=== PATIENT | male | born 1940 | race Caucasian/White ===

== ENCOUNTER 2018-07-02 00:42 | Inpatient (IN) | payer MEDICARE, BC ==
[2018-07-02 05:07] LABS: Actual Bicarbonate (HCO3a) 32.6 mEq/L (22-28); Analyzer IN Cardio ER; Base Excess (BEa) 3.3 mEq/L (-2.0 to +3.0); CO2 Tension 72.4 mmHg (35.0-45.0); Hemoglobin (Hb) 14.9 g/dL (14.0-18.0); O2 Tension (PaO2) 76.3 mmHg (> 70.0); Potassium - ABG Lab 4.02 mmol/L (3.70-5.30); pH, Arterial 7.27 (7.35-7.45)
[2018-07-02 05:08] LABS: Puncture Site LRA
[2018-07-02] MEDS ORDERED: Dextrose 50% Abboject 50 ML SYRINGE ONE (05:18)
[2018-07-02 05:35] LABS: Hemoglobin 13.8 g/dL (14.0-18.0); Mean Corpuscular HGB CONC 30.5 g/dL (32.0-36.0); RBC Distribution Width 14.7 % (11.5-14.5); Red Blood Cell (RBC) Count 4.91 mill/uL (4.70-6.10); White Blood Cell (WBC) Count 4.8 thou/uL (4.8-10.8)
[2018-07-02 05:36] LABS: INR-International Normal Ratio 1.8; PTT 37.3 SEC (22.9-36.1); Prothrombin Time 20.9 SEC (12.0-14.7)
[2018-07-02 05:49] LABS: #Lymphocytes 1.2 thou/uL (1.20-3.40); #Monocytes 0.5 thou/uL (0.11-0.59); %Eosinophils 0.7 % (0.0-10.0); %Lymphocytes 24.9 % (21.0-51.0); %Monocytes 9.6 % (0.0-10.0); %Neutrophils 63.7 % (42.0-75.0); Mean Platelet Volume 8.6 fL (7.4-10.4); PLT Morphology Comment Appears Decreased; Platelet Count 109 thou/uL (130-400)
[2018-07-02 05:51] LABS: ALT (SGPT) 25 U/L (8-55); AST (SGOT) 44 U/L (5-34); Albumin 3.6 g/dL (3.4-4.8); Alkaline Phosphatase 48 U/L (40-150); Anion Gap 10 mmol/L (10-20); BUN (Urea Nitrogen) 40 mg/dL (8.4-25.7); Bilirubin, Total 0.7 mg/dL (0.2-1.2); Calc. Creatinine Clearance 0 mL/min (70-130); Carbon Dioxide 33 mmol/L (23-31); Chloride 107 mmol/L (98-107); Estimated GFR-MDRD 51; Globulin 2.9 g/dL (2.4-3.5); Magnesium 1.9 mg/dL (1.6-2.6); Potassium 3.9 mmol/L (3.5-5.1); Protein, Total 6.5 g/dL (5.8-8.1); Sodium 146 mmol/L (136-145)
[2018-07-02 05:52] LABS: CKMB 4.8 ng/mL (0-6.6); Troponin I 0.052 ng/mL (< 0.028)
[2018-07-02] MEDS ORDERED: Furosemide 40 MG/4 ML VIAL ONE (05:53)
[2018-07-02] MEDS ORDERED: Piperacillin/Tazobactam 4.5 GM VIAL ONE (05:53)
[2018-07-02 05:55] LABS: Glucose 46 mg/dL (83-110)
[2018-07-02 06:56] LABS: Bilirubin Negative (Negative); Blood, Urine Negative (Negative); Clarity CLEAR (Clear); Glucose, Urine (Dipstick) Negative (Negative); Leukocyte Negative (Negative); Nitrite Negative (Negative); Protein, Urine (Dipstick) Trace mg/dL (Neg-Trace); Specific Gravity, Urine 1.013 (1.002-1.036); pH, Urine 6.5 (5.0-9.0)
--- NOTE | 2018-07-02 07:55 | CT ---
CT OF THE BRAIN WITHOUT CONTRAST: INDICATION: Altered mental status. COMPARISON: None. FINDINGS: There is mild generalized cerebral and cerebellar atrophy. No acute infarct, hemorrhage, or hydrocephalus is present. The septum pellucidum and third ventricle are midline. There is mucosal thickening within the maxillary sinuses and ethmoid air cells with po stsurgical change of a partial ethmoidectomy and antrectomy involving both maxillary sinuses. Mastoi d air cells are clear. IMPRESSION: 1. No acute intracranial abnormality. 2. Moderate paranasal sinus disease. POS: BH
--- NOTE | 2018-07-02 08:14 | RAD ---
RADIOGRAPH CHEST 1 VIEW: Date: 07-02-18 Time: 5:17 a.m. HISTORY: 77-year-old male with dyspnea. FINDINGS: Again noted are the sternotomy wires, and surgical clips overlying the left side of the cardiac shado w. There is cardiomegaly which appears worse on the current study. There is diffuse pulmonary vascula r engorgement, new since the prior study. Interstitial markings are diffusely prominent. No consolida tion or pneumothorax. IMPRESSION: 1. Cardiomegaly and pulmonary venous congestion are evidence for mild congestive heart failure. 2. Status post coronary artery bypass graft surgery is evidence for coronary atherosclerotic disease. ROSANNE [] POS: TABITHA
[2018-07-02] MEDS ORDERED: Ondansetron HCl/PF 4 MG/2 ML Vial IVP PRN (10:20)
[2018-07-02] MEDS ORDERED: Dextrose 5% in Water 1,000 ML IV PRN (10:20)
[2018-07-02] MEDS ORDERED: Senokot 8.6 MG TAB PO PRN (10:20)
[2018-07-02] MEDS ORDERED: Mag-Al 1200 mg/1200 mg/30 ML UDCUP PO PRN (10:20)
[2018-07-02] MEDS ORDERED: Guaifenesin DM 100-10/5 ML UDCUP PO PRN (10:20)
[2018-07-02] MEDS ORDERED: Dextrose 50% Abboject 50 ML SYRINGE SLOW IVP PRN (10:20)
[2018-07-02 10:24] VITALS: BMI 36.3
--- NOTE | 2018-07-02 11:09 | HP ---
REASON FOR ADMISSION: Acute respiratory failure with hypoxia and hypercarbia, acute chronic obstruct lulu pulmonary disease exacerbation, possible obesity hypoventilation, obstructive sleep apnea, conges tive heart failure exacerbation with diastolic dysfunction likely, hypoglycemia, hypothermia, demand ischemia. HISTORY OF PRESENT ILLNESS: Please note the patient does not recall what happened and states that he woke up in the hospital ER. at bedside mentions that around 2:30 in the morning the patient wa s screaming and yelling. He was profusely sweating and was incoherent. He was rolling side to side and was holding his chest. He was totally uncomfortable. This lasted for a few minutes and finally they called EMS and when EMS arrived, his fingerstick glucose was 44. He was given multiple dextrose IV and was brought to the emergency room. The family also mentioned that he was complaining of some head chills on Sunday. He has known history of sleep apnea and does not wear CPAP. No history of fever, he has a dry cough, but no expectoration. No complaints of urinary frequency or urgency. Cu rrently, does not complain of any chest pain, palpitations or PND. He was on BiPAP on arrival and is currently on nasal cannula. His fingerstick glucose has come up to 91 at 7:10 a.m. On arrival here serum glucose was 46. PAST MEDICAL AND SURGICAL HISTORY: History of coronary artery disease, prior CABG for 5-vessel disea se in 1994, history of DVT years ago, chronic atrial fibrillation, osteoarthritis, diabetes mellitus type 2 requiring insulin, history of skin cancer, GERD, dyslipidemia. He has atopic allergy and take s Benadryl on a daily basis. CURRENT MEDICATIONS: The patient is on metformin 500 mg p.o. daily, Lantus 60 units subcu at bedtime , Humalog 20 units before breakfast, 32 before lunch and dinner, Coreg 25 mg twice daily, atorvastati n 40 mg p.o. daily, lisinopril 10 mg daily, furosemide 40 mg once a week, Coumadin 5 mg daily, fenofi brate 48 mg p.o. daily. ALLERGIES: No known drug allergies. PERSONAL HISTORY: Quit smoking years ago, more than 10 years ago, but has smoked for nearly 40 years , one pack a day. Does not abuse alcohol or drugs. Lives with his . FAMILY HISTORY: Mother of dementia and old age at the age of 82 years. Father had massive OK, at the age of 62 years. CODE STATUS: FULL. Power of senior attorney is his . REVIEW OF SYSTEMS: The following complete review of systems was negative, unless otherwise mentioned in the HPI or below: Constitutional: Weight loss or gain, ability to conduct usual activities. Skin: Rash, itching. Eyes: Double vision, pain. ENT/Mouth: Nose bleeding, neck stiffness, pain, tenderness. Cardiovascular: Palpitations, dyspnea on exertion, orthopnea. Respiratory: Shortness of breath, wheezing, cough, hemoptysis, fever or night sweats. Gastrointestinal: Poor appetite, abdominal pain, heartburn, nausea, vomiting, constipation, or diarrhea. Genitourinary: Urgency, frequency, dysuria, nocturia. Musculoskeletal: Pain, swelling. Neurologic/Psychiatric: Anxiety, depression. Allergy/Immunologic: Skin rash, bleeding tendency. PHYSICAL EXAMINATION: GENERAL: The patient is a 77-year-old male who is currently not in any acute distress. VITAL SIGNS: Blood pressure 140/66, pulse 64 per minute, respiratory rate currently 18, on arrival w as 20, saturating 98% on 3 liters nasal cannula at present, was 98% on BiPAP on arrival had a rectal temperature of 95.3 degrees, currently 97 degrees. NECK: Supple, no elevated JVD. HEENT: Eyes; extraocular muscles intact. Pupils reacting to light. Oral cavity mucous membranes ar e dry. No exudates or congestion. CARDIOVASCULAR: S1, S2 heard. Irregular rhythm. RESPIRATORY: Air entry 1+ bilateral. Scattered rales plus bilateral, rhonchi plus bilateral. No ob vious wheezes at present. ABDOMEN: Soft, bowel sounds heard. No tenderness, masses, rigidity or guarding. EXTREMITIES: There is a right lower extremity chronic edema due to vein grafting for CABG. No calf tenderness. VASCULAR: Peripheral pulses 1+ bilateral, no ischemic ulcerations or gangrene. CENTRAL NERVOUS SYSTEM: No gross focal deficits noted. Patient is currently awake and oriented well . Responds well to verbal questions. PSYCHIATRIC: No obvious hallucinations or delusions at present. LABORATORY AND X-RAY FINDINGS: EKG done shows atrial fibrillation at 69 beats per minute. There is incomplete RBBB with frequent PVC seen. White count of 4.8, H&H 13 and 45, platelet count 109. MCV is 92 with 63% neutrophils. PT/INR 20 and 1.8, PTT 37. Blood gas done shows a pH of 7.27, pCO2 72, pO2 76. Serum bicarbonate is 33, BUN 40, creatinine 1.3, serum glucose was 46, recent fingerstick is 91. Magnesium 1.9, AST 44, ALT 25. CK-MB 4.8, troponin I 0.05. BNP is 208, albumin is 3.6. Chest x-ray done shows cardiomegaly with pulmonary vascular congestion. CT brain done shows no acute intracranial abnormality. There is moderate paranasal sinus disease seen especially in the maxillar y sinuses and ethmoid air cells. There is also post-surgical change of partial ethmoidectomy and ant rectomy involving both maxillary sinuses. CLINICAL IMPRESSION AND PLAN: The patient will be admitted to IM for acute respiratory failure wit h hypoxia and hypercarbia, acute chronic obstructive pulmonary disease exacerbation, likely obesity h ypoventilation, obstructive sleep apnea, and noncompliant with CPAP, possible diastolic dysfunction w ith congestive heart failure exacerbation, hypoglycemia. The patient will be given a regular diet as he is fully awake and oriented now. We will place him on DuoNebs q.6 hourly, Lasix 40 mg IV q.12 ho urly for a total of 4 doses. Echo with 2D Doppler for LV function. Empiric Levaquin and IV steroids . We will continue his Coumadin as before along with aspirin, atorvastatin, Coreg at a lower dose an d TriCor. His lisinopril will be split to 5 mg twice daily. We will consult Dr. Haji who is on c all for Pulmonology and Dr. Saravia for Cardiology. Accurate I's and O's will be obtained. PT, OT evaluations will be requested as well. Once his hypothermia has completely resolved, along with hypo glycemia, the patient can be moved off to telemetry.
[2018-07-02] MEDS ORDERED: Aspirin 325 MG TAB PO SCH (11:30)
[2018-07-02] MEDS ORDERED: Furosemide 40 MG/4 ML VIAL SLOW IVP SCH (14:00)
[2018-07-02] MEDS: Carvedilol 6.25 MG TAB PO SCH (17:18)
[2018-07-02] MEDS: Warfarin Sodium 5 MG TAB PO SCH (17:18)
--- NOTE | 2018-07-02 19:32 | CON ---
DATE OF CONSULTATION: 07/02/2018 SERVICE: Pulmonary Medicine. REASON FOR CONSULTATION: Respiratory failure. HISTORY OF PRESENT ILLNESS: The patient is a 77-year-old white male with past medical history significant for greater than [id number] history of smoking and a sick heart. He underwent a coronary bypass graft x5 vessels in 1994. Since then, he has had swelling in the lower extremities, it has been on and off. He also has dyspnea on exertion that plagues him. After he walks about 50 feet, he has significant pain in his back, hips and knees, but the thing that really limits him in addition to the mobility is breathing issues. This has been slowly progressive over a period of several years. This was in his usual state of health until roughly a month ago, he started having increasing lower extremity swelling, and nocturnal symptoms of difficulty sleeping, waking up short of breath. Roughly 3 days ago, however, he started having increasing sputum production, bring up green stuff. He presented to the emergency department because he could not breathe. Ultimately, he was identified as being both volume overloaded and hypercapnic. He was placed on BiPAP temporarily. He absolutely hated using the device. He has a history of obstructive sleep apnea, but after 3 months, he had been in therapy because he could not get used to wearing this thing. He was given a couple of doses of Lasix and overnight, he has had profound improvement in his symptoms. He is talking in full sentences. He has been weaned down to 1 liter nasal cannula and it is questionable as to whether or not he even needs that. PAST MEDICAL HISTORY: 1. Coronary artery disease. 2. Atrial fibrillation, chronic. 3. Chronic diastolic heart failure. 4. Type 2 diabetes mellitus. 5. Hypertension. 6. Dyslipidemia. 7. Osteoarthritis. 8. History of DVT. 9. Gastroesophageal reflux disease. PAST SURGICAL HISTORY: 1. Coronary artery bypass graft x5 vessels in 1994. 2. Excision of skin cancer. ALLERGIES: No known drug allergies. MEDICATIONS: List of his inpatient medications were reviewed. Multiple small updates were made. FAMILY HISTORY: Noncontributory. SOCIAL HISTORY: He has a greater than [id number] history of smoking, but quit over 10 years ago. He does not use any alcohol or illicit drugs. He lives with his . They have been almost 59 years. He has no exposure to chemicals, dust, asbestos or tuberculosis otherwise. REVIEW OF SYSTEMS: General, head, ears, eyes, nose, throat, cardiovascular, respiratory, GI, , musculoskeletal, neurologic and skin is negative except as mentioned in the HPI. PHYSICAL EXAMINATION: VITAL SIGNS: Afebrile, pulse 73, blood pressure 112/78, respirations 24, saturation 99% on 2 liters nasal cannula. GENERAL: The patient is awake, alert, no apparent distress. LUNGS: Good air entry. There is a slightly prolonged expiratory phase, but most likely crackles scattered throughout bilateral lung swan predominating throughout the basilar regions. HEART: Normal rate and regular. ABDOMEN: Soft, nontender, nondistended. Bowel sounds are positive. MUSCULOSKELETAL: No cyanosis or clubbing. There is trace to 1+ pitting in the bilateral lower extremities with findings of chronic stasis. GENITOURINARY: No Nevarez. NEUROLOGIC: Grossly nonfocal. LABORATORY DATA: WBC 4.8, hemoglobin 13.8, platelets 109,000 with a normal differential. INR 1.8. A pH 7.27, pCO2 of 72, pO2 76. He was on room air at that time. Creatinine 1.35, above baseline of 1.2. Liver function studies are unremarkable. BNP 208, troponin 0.052, glucose 122, lactate 1.1. Urinalysis is essentially unremarkable. IMAGIN. CT of the brain demonstrates no acute intracranial abnormality. 2. Chest x-ray demonstrates cardiomegaly despite the fact this is an AP film, hyperexpanded lungs bilaterally with prominent alveolar and interstitial infiltrates characteristic of volume overload. Pulmonary vascular congestion is noted. Previous sternotomy is noted. ASSESSMENT: 1. Acute hypoxic and hypercapnic respiratory failure. 2. Obstructive sleep apnea, severe, previously not able to tolerate CPAP therapy. 3. Extensive history of tobacco abuse, resolved. 4. Chronic obstructive pulmonary disease with acute exacerbation, possible. 5. Acute on chronic systolic and diastolic heart failure, suspected. DISCUSSION AND PLAN: We will continue to diurese the patient euvolemia. I will switch the steroids over to p.o., continue frequent nebulized medications, and limit his antibiotic course to a total duration of 7 days. From my perspective, he is stable for transition to the telemetry unit. Pulmonary will continue to follow for the time being. Ultimately on discharge from the hospital, I would like to get him back in clinic so we can clarify whether or not he has any underlying lung disease in his usual state and talked to him about whether or not he wants to pursue polysomnogram again to treat his known sleep apnea. I had a discussion with him, his daughter, granddaughter, , and very close family friend. They do understand that untreated sleep apnea can contribute to kidney injury, dementia, stroke, heart disease, sudden cardiac , atrial fibrillation. We will continue our discussion int the outpatient setting. 70 minutes have been devoted to this patient in various activities. I personally reviewed all imaging studies and laboratory data noted within this document. For fifty percent of this time, I was interacting with the patient at the bedside or coordinating care with the care team. For the remainder of the time I was immediately available to the patient in the hospital unit. ENE
[2018-07-02] MEDS: Docusate 100 MG CAP PO SCH (19:50)
[2018-07-02] MEDS: Lisinopril 5 MG TAB PO SCH (19:50)
[2018-07-02] MEDS: Atorvastatin Calcium 40 MG TAB PO SCH (19:50)
[2018-07-02] MEDS: guaiFENesin ER 600 MG TAB PO SCH (19:50)
[2018-07-02] MEDS ORDERED: Prevnar 13-Val Conj/PF 0.5 ML SYRINGE IM ONE (21:00)
[2018-07-02] MEDS: Insulin Glargine 60 UNITS in Pre-Filled Syringe 1 EACH SC SCH (22:56)
[2018-07-03] MEDS: Acetaminophen 325 MG TAB PO PRN (00:30)
[2018-07-03 04:25] LABS: #Lymphocytes 1.5 thou/uL (1.20-3.40); #Monocytes 0.8 thou/uL (0.11-0.59); #Neutrophils 5.9 thou/uL (1.40-6.50); %Basophils 0.1 % (0.0-1.0); %Eosinophils 0.2 % (0.0-10.0); %Lymphocytes 18.8 % (21.0-51.0); %Monocytes 9.3 % (0.0-10.0); %Neutrophils 71.7 % (42.0-75.0); Hemoglobin 14.8 g/dL (14.0-18.0); Mean Corpuscular HGB CONC 31.3 g/dL (32.0-36.0); Mean Corpuscular Hemoglobin 28.5 pg (27.0-31.0); Mean Corpuscular Volume 91.1 fL (78.0-98.0); Mean Platelet Volume 8.9 fL (7.4-10.4); Platelet Count 148 thou/uL (130-400); RBC Distribution Width 14.8 % (11.5-14.5); Red Blood Cell (RBC) Count 5.18 mill/uL (4.70-6.10); White Blood Cell (WBC) Count 8.2 thou/uL (4.8-10.8)
[2018-07-03 04:28] LABS: Anion Gap 15 mmol/L (10-20); BUN (Urea Nitrogen) 41 mg/dL (8.4-25.7); Calc. Creatinine Clearance 65 mL/min (70-130); Calcium 9.7 mg/dL (7.8-10.44); Carbon Dioxide 30 mmol/L (23-31); Chloride 97 mmol/L (98-107); Estimated GFR-MDRD 44; Glucose 269 mg/dL (83-110); Potassium 4.1 mmol/L (3.5-5.1); Sodium 138 mmol/L (136-145)
[2018-07-03 05:07] LABS: Prothrombin Time 22.4 SEC (12.0-14.7)
[2018-07-03] MEDS: HumaLOG 300 UNITS/3 ML VIAL SC SCH ×3 (08:27→18:32)
[2018-07-03] MEDS: Lisinopril 5 MG TAB PO SCH ×2 (08:27→19:40)
[2018-07-03] MEDS: predniSONE 20 MG TAB PO SCH (08:28)
[2018-07-03] MEDS: Aspirin 325 MG TAB PO SCH (08:28)
[2018-07-03] MEDS: guaiFENesin ER 600 MG TAB PO SCH ×2 (08:28→19:40)
[2018-07-03] MEDS: Carvedilol 6.25 MG TAB PO SCH ×2 (08:29→18:32)
[2018-07-03] MEDS: Docusate 100 MG CAP PO SCH ×2 (08:29→19:40)
[2018-07-03] MEDS ORDERED: Furosemide 40 MG/4 ML VIAL SLOW IVP SCH (09:00)
--- NOTE | 2018-07-03 11:17 | CON ---
DATE OF CONSULTATION: 07/03/2018 HISTORY OF PRESENT ILLNESS: Patient is a pleasant 77-year-old gentleman with a history of coronary artery disease status post coronary bypass surgery with chronic atrial fibrillation who presents with altered mental status. The patient states he underwent coronary bypass graft surgery in 1996. He had coronary bypass surgery x5 done in [place]. He has been followed by Dr. Rider. He had developed chronic atrial fibrillation and is on chronic anticoagulation therapy. The patient has done remarkably well. He was in his usual state of health, but it has been under a great deal of stress. He has not been eating well. Early in the morning, he developed acute altered mental status. He was brought to the emergency room and found to have severe hypoglycemia. The patient does not recall this incident. The patient denies having any chest discomfort or palpitations. PAST MEDICAL HISTORY: 1. Coronary artery disease. 2. Diabetes mellitus. 3. Hypertension. 4. Dyslipidemia. 5. Atrial fibrillation. 6. Sleep apnea. 7. GE reflux. 8. History of DVT. PAST SURGICAL HISTORY: Coronary bypass graft surgery. MEDICATIONS: Coreg 25 b.i.d., Lipitor 40 at bedtime, lisinopril 10 daily, Lasix 40 daily, metformin 500 daily, Coumadin 5 at bedtime, fenofibrate 48 mg daily. ALLERGIES: No known drug allergies. SOCIAL HISTORY: He is a former smoker. FAMILY HISTORY: Positive family history of heart disease. ALLERGIES: No known drug allergies. REVIEW OF SYSTEMS: Ten point system noticeable for somnolence, difficulty sleeping and for increased stress. Ten-point system otherwise unremarkable. PHYSICAL EXAMINATION: GENERAL: This is an elderly gentleman in no acute distress. VITAL SIGNS: Blood pressure 112/78. NECK: Showed no jugular venous distention. LUNGS: Have a few crackles in both bases. HEART: Regular rate and rhythm, normal S1, S2, 1/6 systolic murmur. ABDOMEN: Distended. EXTREMITIES: Showed mild bilateral edema. SKIN: Warm. NEUROLOGIC: Nonfocal. VASCULAR: Radial pulses 2+. LABORATORY DATA: White blood count 4.8, hemoglobin 13.8, hematocrit 45.2, platelets 109. Sodium is 146, potassium 3.9, chloride 107, bicarbonate 33, BUN 40, creatinine is 1.35. His troponin was 0.052. His BNP was 208. His INR was 1.8. His EKG revealed atrial fibrillation with occasional premature ventricular contractions. IMPRESSION: 1. Altered mental status secondary to hypoglycemia. 2. Congestive heart failure. 3. History of coronary bypass surgery x5. 4. Chronic atrial fibrillation. 5. Diabetes mellitus. 6. Dyslipidemia. 7. History of a deep venous thrombosis. 8. Sleep apnea. 9. Morbid obesity. This gentleman presents with altered mental status secondary to hypoglycemia. He was followed by a supervisor tumblers in [place]. We will try to obtain records. The patient is being diuresed with IV Lasix. We will check the patient's echocardiogram. We will follow this patient with you through his hospitalization. ENE
--- NOTE | 2018-07-03 11:37 | PRG ---
DATE OF SERVICE: 07/03/2018 SERVICE: Pulmonary Medicine. INTERVAL HISTORY: The patient is doing great from a respiratory standpoint. He denies any current chest pain, nausea, vomiting, fevers or chills. He is on room air this morning. He did not use his noninvasive ventilator last night. Otherwise, there has been no interval change to his condition. PHYSICAL EXAMINATION: VITAL SIGNS: Afebrile, pulse 78, blood pressure 152/72, respirations 18, saturation 100% on room air. GENERAL: The patient is awake, alert, no apparent distress. LUNGS: Decent air entry. There is no prolonged expiratory phase, wheezing, rhonchi, or crackles present. HEART: Normal rate, regular. ABDOMEN: Soft, nontender, nondistended. Bowel sounds are positive. MUSCULOSKELETAL: No cyanosis or clubbing. There is 1-2+ pitting in the bilateral lower extremities. GENITOURINARY: No Nevarez. NEUROLOGIC: Grossly nonfocal. LABORATORY DATA: WBC 8.2, hemoglobin 14.8, platelets 148,000. Creatinine 1.53 and gently trending upward, BUN 41. Basic metabolic profile is otherwise unremarkable. Blood sugars remain a little elevated. Urinalysis is negative. Blood cultures x2 remain unremarkable. IMAGING: Echocardiogram demonstrates 30%-40% ejection fraction. That being said, windows were poor which precludes any additional evaluation. ASSESSMENT: 1. Acute hypoxic and hypercapnic respiratory failure. 2. Acute on chronic systolic and diastolic heart failure. 3. Chronic obstructive pulmonary disease with acute exacerbation secondary to volume. 4. Extensive history of tobacco abuse, remote. 5. Obstructive sleep apnea, severe, not able to tolerate CPAP/BiPAP therapy. DISCUSSION AND PLAN: The patient is stable for transition to the telemetry unit. In the outpatient setting, we will evaluate for whether or not the patient has any obstructive lung disease. If it is present, we will optimize some of his medication and/or management. We will also discuss with him whether or not he wants to pursue a repeat polysomnogram in the outpatient setting, understanding that without control of LEON, he is at increased risk of medical diseases moving forward. Pulmonary will continue to follow for now. ENE
--- NOTE | 2018-07-03 12:43 | PDOC.PN ---
- Subjective Encounter Start Date: 07/03/18 Encounter Start Time: 12:00 Subjective: breathing better, sitting and reading a novel -: no chest pain or palp -: is oriented well - Objective Resuscitation Status: Resuscitation Status FULL:Full Resuscitation MAR Reviewed: Yes Vital Signs & Weight: Vital Signs (12 hours) Temp Pulse Resp BP BP Pulse Ox 07/03/18 10:57 97.7 F 78 18 152/72 H 100 07/03/18 08:29 164/65 H 07/03/18 08:27 80 07/03/18 07:38 97.2 F L 80 16 130/93 H 97 07/03/18 06:58 69 16 98 07/03/18 04:28 98.0 F 76 20 140/74 98 07/03/18 03:53 100 07/03/18 00:55 83 18 93 L Weight Weight 251 lb 1.6 oz I&O: 07/02/18 07/03/18 07/04/18 06:59 06:59 06:59 Intake Total 2112 Output Total 2850 Balance -738 Result Diagrams: 07/03/18 03:42 07/03/18 03:42 Additional Labs: Accuchecks 07/03/18 07/03/18 07/02/18 10:39 05:32 20:02 POC Glucose 206 H 206 H 309 H 07/02/18 16:52 POC Glucose 256 H Phys Exam - Physical Examination HEENT: PERRLA, moist MMs Neck: no JVD, supple Respiratory: no wheezing, no rales Cardiovascular: no significant murmur, irregular Gastrointestinal: soft, non-tender, positive bowel sounds Musculoskeletal: pulses present, edema present Neurological: non-focal, moves all 4 limbs Psychiatric: normal affect, A&O x 3 Dx/Plan (1) Acute respiratory failure with hypoxia and hypercapnia Code(s): J96.01 - ACUTE RESPIRATORY FAILURE WITH HYPOXIA; J96.02 - ACUTE RESPIRATORY FAILURE WITH HYPERCAPNIA Status: Ruled-out (2) Hypoglycemia Code(s): E16.2 - HYPOGLYCEMIA, UNSPECIFIED Status: Resolved (3) Chronic obstructive pulmonary disease with acute exacerbation Code(s): J44.1 - CHRONIC OBSTRUCTIVE PULMONARY DISEASE W (ACUTE) EXACERBATION Status: Acute (4) Acute exacerbation of CHF (congestive heart failure) Code(s): I50.9 - HEART FAILURE, UNSPECIFIED Status: Acute Qualifiers: Heart failure type: combined systolic and diastolic Qualified Code(s): I50.43 - Acute on chronic combined systolic (congestive) and diastolic ( congestive) heart failure Comment: ef of 35% (5) Afib Code(s): I48.91 - UNSPECIFIED ATRIAL FIBRILLATION Status: Chronic Qualifiers: Atrial fibrillation type: chronic Qualified Code(s): I48.2 - Chronic atrial fibrillation (6) HTN (hypertension) Code(s): I10 - ESSENTIAL (PRIMARY) HYPERTENSION Status: Chronic Qualifiers: Hypertension type: essential hypertension Qualified Code(s): I10 - Essential (primary) hypertension (7) Obesity (BMI 30-39.9) Code(s): E66.9 - OBESITY, UNSPECIFIED Status: Chronic (8) DM type 2 (diabetes mellitus, type 2) Status: Chronic Qualifiers: Diabetes mellitus shelter insulin use: with lobsterman use Diabetes mellitus complication status: with unspecified complications Qualified Code(s) : E11.8 - Type 2 diabetes mellitus with unspecified complications; 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 Review of Systems - Medications/Allergies Allergies/Adverse Reactions: Allergies Allergy/AdvReac Type Severity Reaction Status Date / Time No Known Allergies Allergy Verified 07/02/18 10:12 Medications: Current Medications Acetaminophen (Tylenol) 650 mg PO Q4H PRN PRN Reason: Headache/Fever or Pain Last Admin: 07/03/18 00:30 Dose: 650 mg Al Hydroxide/Mg Hydroxide (Maalox) 30 ml PO Q6H PRN PRN Reason: Heartburn or Indigestion Albuterol/Ipratropium (Duoneb) 3 ml NEB [id number] RAJWINDER Last Admin: 07/03/18 06:58 Dose: 3 ml Aspirin (Aspirin) 325 mg PO DAILY [facility] Last Admin: 07/03/18 08:28 Dose: 325 mg Atorvastatin Calcium (Lipitor) 40 mg PO HS [facility] Last Admin: 07/02/18 19:50 Dose: 40 mg Carvedilol (Coreg) 6.25 mg PO BID[facility] Last Admin: 07/03/18 08:29 Dose: 6.25 mg Dextrose/Water (Dextrose 50%) 25 gm SLOW IVP PRN PRN PRN Reason: Hypoglycemia Docusate Sodium (Colace) 100 mg PO BID [facility] Last Admin: 07/03/18 08:29 Dose: 100 mg Furosemide (Lasix) 40 mg SLOW IVP DAILY [facility] Last Admin: 07/03/18 08:27 Dose: 40 mg Glucagon (Glucagon) 1 mg IM PRN PRN PRN Reason: Hypoglycemia Guaifenesin (Mucinex) 1,200 mg PO Q12HR [facility] Last Admin: 07/03/18 08:28 Dose: 1,200 mg Dextrose/Water (D5w) 1,000 mls @ 0 mls/hr IV .Q0M PRN PRN Reason: Hypoglycemia Insulin Glargine 60 units/ (Miscellaneous Medication) 0.6 mls @ 0 mls/hr SC 2230 [facility] Last Admin: 07/02/18 22:56 Dose: 0.6 mls Insulin Human Lispro (Humalog) 20 units SC 0700 [facility] Last Admin: 07/03/18 08:27 Dose: 20 unit Insulin Human Lispro (Humalog) 30 units SC 1200 RAJWINDER Insulin Human Lispro (Humalog) 32 units SC 1800 [facility] Levofloxacin (Levaquin) 750 mg PO 0600 [facility] Stop: 07/08/18 06:01 Last Admin: 07/03/18 05:55 Dose: 750 mg Lisinopril (Zestril) 5 mg PO BID [facility] Last Admin: 07/03/18 08:27 Dose: 5 mg Ondansetron HCl (Zofran) 4 mg IVP Q6H PRN PRN Reason: Nausea/Vomiting Prednisone (Prednisone) 40 mg PO QAM-[facility] Last Admin: 07/03/18 08:28 Dose: 40 mg Senna (Senokot) 2 tab PO HSPRN PRN PRN Reason: Constipation Warfarin Sodium (Coumadin) 5 mg PO 1700 [facility] Last Admin: 07/02/18 17:18 Dose: 5 mg
[2018-07-03] MEDS: Warfarin Sodium 5 MG TAB PO SCH (18:31)
[2018-07-03] MEDS: Atorvastatin Calcium 40 MG TAB PO SCH (19:39)
[2018-07-03] MEDS ORDERED: Digoxin 0.5 MG/2 ML AMP SLOW IVP SCH (21:30)
[2018-07-03] MEDS: Insulin Glargine 60 UNITS in Pre-Filled Syringe 1 EACH SC SCH (21:41)
[2018-07-04] MEDS: HumaLOG 300 UNITS/3 ML VIAL SC SCH ×3 (09:02→17:53)
[2018-07-04] MEDS: Docusate 100 MG CAP PO SCH ×2 (09:03→21:15)
[2018-07-04] MEDS: guaiFENesin ER 600 MG TAB PO SCH (09:03)
[2018-07-04] MEDS: Aspirin 325 MG TAB PO SCH (09:03)
[2018-07-04] MEDS: Lisinopril 5 MG TAB PO SCH ×2 (09:03→21:14)
[2018-07-04] MEDS: predniSONE 20 MG TAB PO SCH (09:03)
[2018-07-04] MEDS: Carvedilol 6.25 MG TAB PO SCH ×2 (09:04→17:52)
--- NOTE | 2018-07-04 13:01 | PDOC.PN ---
- Subjective Encounter Start Date: 07/04/18 Encounter Start Time: 09:10 Subjective: no c/o chest pain or palpitations or sob -: is sitting in bed -: had sustained vtac and was asymptomatic overnight - Objective Resuscitation Status: Resuscitation Status FULL:Full Resuscitation MAR Reviewed: Yes Vital Signs & Weight: Vital Signs (12 hours) Temp Pulse Resp BP BP Pulse Ox 07/04/18 09:04 164/65 H 07/04/18 09:03 86 07/04/18 07:31 96.4 F L 86 12 127/62 95 07/04/18 06:49 82 16 95 07/04/18 04:00 96.8 F L 85 18 127/93 H 96 Weight Weight 236 lb 9.6 oz I&O: 07/03/18 07/04/18 07/05/18 06:59 06:59 06:59 Intake Total 2112 1330 Output Total 2850 2850 Balance -098 -2070 Result Diagrams: 07/03/18 03:42 07/03/18 03:42 Additional Labs: Accuchecks 07/04/18 07/03/18 07/03/18 05:35 20:35 16:41 POC Glucose 124 H 159 H 167 H Phys Exam - Physical Examination HEENT: PERRLA, moist MMs Neck: no JVD, supple Respiratory: no wheezing, no rales Cardiovascular: RRR, no significant murmur Gastrointestinal: soft, non-tender, positive bowel sounds Musculoskeletal: no edema, pulses present Neurological: non-focal, moves all 4 limbs Psychiatric: normal affect, A&O x 3 Dx/Plan (1) V-tach Code(s): I47.2 - VENTRICULAR TACHYCARDIA Status: Acute (2) Acute respiratory failure with hypoxia and hypercapnia Code(s): J96.01 - ACUTE RESPIRATORY FAILURE WITH HYPOXIA; J96.02 - ACUTE RESPIRATORY FAILURE WITH HYPERCAPNIA Status: Resolved (3) Hypoglycemia Code(s): E16.2 - HYPOGLYCEMIA, UNSPECIFIED Status: Resolved (4) Chronic obstructive pulmonary disease with acute exacerbation Code(s): J44.1 - CHRONIC OBSTRUCTIVE PULMONARY DISEASE W (ACUTE) EXACERBATION Status: Acute (5) Acute exacerbation of CHF (congestive heart failure) Code(s): I50.9 - HEART FAILURE, UNSPECIFIED Status: Acute Qualifiers: Heart failure type: combined systolic and diastolic Qualified Code(s): I50.43 - Acute on chronic combined systolic (congestive) and diastolic ( congestive) heart failure Comment: ef of 35% (6) Afib Code(s): I48.91 - UNSPECIFIED ATRIAL FIBRILLATION Status: Chronic Qualifiers: Atrial fibrillation type: chronic Qualified Code(s): I48.2 - Chronic atrial fibrillation (7) HTN (hypertension) Code(s): I10 - ESSENTIAL (PRIMARY) HYPERTENSION Status: Chronic Qualifiers: Hypertension type: essential hypertension Qualified Code(s): I10 - Essential (primary) hypertension (8) Obesity (BMI 30-39.9) Code(s): E66.9 - OBESITY, UNSPECIFIED Status: Chronic (9) DM type 2 (diabetes mellitus, type 2) Status: Chronic Qualifiers: Diabetes mellitus senior living insulin use: with ferry terminal agent use Diabetes mellitus complication status: with unspecified complications Qualified Code(s) : E11.8 - Type 2 diabetes mellitus with unspecified complications; Z79.4 - retirement (current) use of insulin (10) LEON (obstructive sleep apnea) Code(s): G47.33 - OBSTRUCTIVE SLEEP APNEA (ADULT) (PEDIATRIC) Status: Chronic Comment: noncompliant with cpap - Plan had sustained vtac overnight, was asymptomatic -: has 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 dm is stable on current insulins. Review of Systems - Medications/Allergies Allergies/Adverse Reactions: Allergies Allergy/AdvReac Type Severity Reaction Status Date / Time No Known Allergies Allergy Verified 07/02/18 10:12 Medications: Current Medications Acetaminophen (Tylenol) 650 mg PO Q4H PRN PRN Reason: Headache/Fever or Pain Last Admin: 07/03/18 00:30 Dose: 650 mg Al Hydroxide/Mg Hydroxide (Maalox) 30 ml PO Q6H PRN PRN Reason: Heartburn or Indigestion Aspirin (Aspirin) 325 mg PO DAILY [facility] Last Admin: 07/04/18 09:03 Dose: 325 mg Atorvastatin Calcium (Lipitor) 40 mg PO HS [facility] Last Admin: 07/03/18 19:39 Dose: 40 mg Carvedilol (Coreg) 12.5 mg PO BID-[facility] Dextrose/Water (Dextrose 50%) 25 gm SLOW IVP PRN PRN PRN Reason: Hypoglycemia Docusate Sodium (Colace) 100 mg PO BID [facility] Last Admin: 07/04/18 09:03 Dose: 100 mg Glucagon (Glucagon) 1 mg IM PRN PRN PRN Reason: Hypoglycemia Guaifenesin (Mucinex) 1,200 mg PO Q12HR [facility] Last Admin: 07/04/18 09:03 Dose: 1,200 mg Dextrose/Water (D5w) 1,000 mls @ 0 mls/hr IV .Q0M PRN PRN Reason: Hypoglycemia Insulin Glargine 60 units/ (Miscellaneous Medication) 0.6 mls @ 0 mls/hr SC 2230 [facility] Last Admin: 07/03/18 21:41 Dose: 0.6 mls Insulin Human Lispro (Humalog) 20 units SC 0700 [facility] Last Admin: 07/04/18 09:02 Dose: 20 unit Insulin Human Lispro (Humalog) 30 units SC 1200 [facility] Last Admin: 07/04/18 12:33 Dose: 30 unit Insulin Human Lispro (Humalog) 32 units SC 1800 [facility] Last Admin: 07/03/18 18:32 Dose: 32 unit Levofloxacin (Levaquin) 750 mg PO 0600 [facility] Stop: 07/08/18 06:01 Last Admin: 07/04/18 06:17 Dose: 750 mg Lisinopril (Zestril) 5 mg PO BID [facility] Last Admin: 07/04/18 09:03 Dose: 5 mg Ondansetron HCl (Zofran) 4 mg IVP Q6H PRN PRN Reason: Nausea/Vomiting Prednisone (Prednisone) 40 mg PO QAM-[facility] Last Admin: 07/04/18 09:03 Dose: 40 mg Senna (Senokot) 2 tab PO HSPRN PRN PRN Reason: Constipation
[2018-07-04] MEDS: Levalbuterol HCl 0.63 MG/3 ML NEB NEB SCH ×2 (14:24→22:48)
--- NOTE | 2018-07-04 16:47 | PRG ---
DATE OF SERVICE: 07/04/2018 SERVICE: Pulmonary Medicine. INTERVAL HISTORY: The patient was doing great this morning from a respiratory standpoint when he bruna t into sustained ventricular tachycardia. This was about 8 minutes' worth. He was completely asympt omatic to the entire episode. Otherwise, there has been no interval change to his condition. He den ies any current chest pain, nausea, vomiting, fevers, chills or shortness of breath. If anything, he feels like he has made steady improvement day by day. He was hoping to go home today. We told him that he is going to wait and have a conversation with EP. There is a possibility this could be a tac hy supraventricular arrhythmia with aberrancy. OBJECTIVE: VITAL SIGNS: Afebrile, pulse 87, blood pressure 164/65, respirations 16, saturation 92% on room air. GENERAL: The patient is awake and alert, no apparent distress. LUNGS: Excellent air entry. There is no prolonged expiratory phase or wheezing today. There are no crackles present. HEART: Normal rate, regular. ABDOMEN: Soft, nontender, nondistended. Bowel sounds are positive. MUSCULOSKELETAL: No cyanosis or clubbing. There is no pitting in the bilateral lower extremities. NEUROLOGIC: Grossly nonfocal. LABORATORY DATA: WBC 8.2, hemoglobin 14.8, platelets 148,000. Blood cultures x2 are unremarkable. IMAGING: Echocardiogram demonstrates 30%-40% ejection fraction with poor windows. Mild mitral regur gitation is present. ASSESSMENT: 1. Acute hypoxic and hypercapnic respiratory failure. 2. Acute on chronic systolic and diastolic heart failure. 3. Chronic obstructive pulmonary disease with acute exacerbation secondary to volume overload. 4. Extensive history of tobacco abuse, remote. 5. Obstructive sleep apnea, severe, previously not able to tolerate CPAP therapy. DISCUSSION AND PLAN: The patient can be moved to the telemetry unit. We will repeat laboratories in [facility] tomorrow morning. At this point, the patient has no further requirements for inpat ient Pulmonary or Critical Care opinion and I will sign off. Please call with additional questions o r concerns moving forward. We have him follow up with me in the outpatient setting to look for obstr uctive sleep apnea once again and evaluate for obstructive lung disease.
--- NOTE | 2018-07-04 17:13 | CON ---
ELECTROPHYSIOLOGY CONSULTATION DATE OF CONSULTATION: 07/04/2018 REFERRING PHYSICIAN: Antony Saarvia. REASON FOR CONSULTATION: Ventricular tachycardia. HISTORY OF PRESENT ILLNESS: Mr. Waterman is a pleasant 77-year-old gentleman who has a substantial pas t medical history. Of note, he has extensive coronary artery disease and has had a 5-vessel bypass s urgery in 1996. He also carries a diagnosis of chronic atrial fibrillation that is currently rate co ntrolled. He is on warfarin for anticoagulation. He has been managed by carpentry teacher in [place], Dr. Gustabo marmolejo. He reports that he is scheduled to see his carpentry teacher for his annual appointment in the next few weeks, but in the past he has been told he has been doing well and has never been told that he h as a weak heart. Other than atrial fibrillation, he has never been told that he has abnormal rhythms . Mr. Waterman was brought in via EMS to [facility] on 07/02/2018. Around 2:30 in the morning, his found him writhing in bed with acute altered mental status. Writhing and making in coherent somewhat guttural sounds. EMS arrived and found that he had severe hyperglycemia with blood sugar of 44 and he was given IV dextrose. He was initially admitted to [facility] for acute respiratory f ailure and congestive heart failure exacerbation and has been diuresed since then. He has been trans ferred to telemetry. Today, he is resting comfortably in the chair. He reports that he is in no mali arent distress. He denies any heart racing, palpitations, chest pain, pressure, syncope, near syncop e, stroke or stroke like symptoms. The night before, there is some excitement and he had a 12-lead E KG done when he was told that his heart was racing, but he did not have any symptoms associated with this tachycardia. He did not experience any dizziness. There is no passing out. He did not have an y chest pain. Congestive heart failure is a new diagnosis for him, although his family members who a re at bedside during exam report that he has a chronic issue of lower extremity edema for which he is supposed to take Lasix daily, but usually takes that once a week. There is some medical noncomplian ce here. REVIEW OF SYSTEMS: A 12-point review of systems was conducted and is negative except that listed abo ve in the HPI. PAST MEDICAL HISTORY: 1. Coronary artery disease with prior 5-vessel bypass grafting in 1996. 2. Chronic atrial fibrillation, rate controlled. 3. Type 2 diabetes. 4. Hypertension. 5. Dyslipidemia. 6. Obstructive sleep apnea, noncompliant with CPAP treatment. 7. Gastroesophageal reflux disease. 8. History of DVT. 9. Chronic anticoagulation with warfarin for chronic atrial fibrillation. ALLERGIES: No known drug allergies. HOME MEDICATIONS: Include Humalog t.i.d. with meals as directed, carvedilol 25 mg p.o. b.i.d., atorv astatin 40 mg p.o. daily, furosemide 40 mg as scheduled daily that is only taking once a week, fenofi brate 48 mg daily, metformin 500 mg daily, warfarin 5 mg as directed, lisinopril 10 mg daily, and Kurt tus 60 units at bedtime. SOCIAL HISTORY: and resides with his family. Former smoker, but quit greater than 10 years back, greater at least a 23-eajo-serl history. Negative for alcohol or drug abuse. FAMILY HISTORY: Mother passed from dementia at the age of 82. Father had a massive MS and passed aw ay at the age of 62. Code status is FULL and his medical power of criminal attorney is his . PHYSICAL EXAMINATION: VITAL SIGNS: Most recent vital signs include 96.4 degrees Fahrenheit, pulse 86, blood pressure 164/6 5, respirations are 16, oxygen is 92% on room air. GENERAL: The patient is a well-groomed overweight gentleman. He is resting comfortably, s itting in a chair. He is in no apparent distress. He is alert and oriented. His speech is clear. His affect is appropriate. HEENT: He is normocephalic, atraumatic. His sclerae are anicteric. EOMs are intact. His oral muco sa is moist and pink with adequate dentition. NECK: Supple with mild jugular venous distention. LUNGS: Clear to auscultation bilaterally without wheezes, crackles or rhonchi. Respirations are grecia n and unlabored. HEART: Rate is irregularly irregular with a controlled rate. PMI is nondisplaced. ABDOMEN: Obese, soft, and nontender without palpable masses. Hepatojugular reflux is mildly positiv e. EXTREMITIES: Warm and dry to touch without clubbing or cyanosis, but due to the extensive pitting ed guillermina bilaterally, greater on the right than the left. NEUROLOGIC: Grossly intact and nonfocal and his gait was not assessed. LABORATORY DATA: 1. Recent laboratory; hematology from yesterday was reviewed and is unremarkable. INR 1.8 on 2017 and 2.0 on 07/03/2018. 2. Chemistry on 07/03/2018, potassium 4.1, creatinine 1.53. BNP was slightly elevated at 208. 3. Echocardiogram on 07/02/2018 reveals an ejection fraction estimated at 30%-40% with a mildly dila billie left atrium, moderate mitral regurgitation, and mild aortic regurgitation. 4. Telemetry and EKGs were all personally reviewed. The patient has chronic atrial fibrillation rajan t is rate controlled. On 07/03/2018 at approximately 20:30, patient had an 8-minute episode of susta ined ventricular tachycardia and that also exhibited occasional fusion beats monomorphic. IMPRESSION: 1. 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 2. Congestive heart failure with likely newly found systolic heart failure, ischemic cardiomyopathy, ejection fraction estimated at 30%-40%. 3. Myocardial infarction in 1996 with a subsequent 5-vessel bypass. 4. Chronic atrial fibrillation on anticoagulation with warfarin and recently slightly subtherapeutic INR. 5. Transient altered mental status, possibly secondary to hypoglycemia. 6. Type 2 diabetes, insulin-dependent. PLAN/RECOMMENDATIONS: 1. With a newly found systolic heart failure and also presenting with sustained ventricular arrhythm ia, should recommend an ischemia workup with possible left heart catheterization. 2. Anticipate patient would likely benefit from ICD placement with sustained ventricular arrhythmia unless some obvious coronary artery disease is found during his ischemia workup. 3. Recommend holding warfarin and consider giving vitamin K to expedite left heart catheterization a nd possible device placement. 4. Records have been requested from his Cardiology office in [place], but currently unavailable. This will be reviewed . Thank you for allowing us to participate in the care of this patient. This is GABY Lynne, dictating an electrophysiology consultation as scribe for Lex Carter M.D.
[2018-07-04] MEDS: Cefdinir 300 MG CAP PO SCH (21:13)
[2018-07-04] MEDS: Amiodarone 200 MG TAB PO SCH (21:13)
[2018-07-04] MEDS: Atorvastatin Calcium 40 MG TAB PO SCH (21:14)
[2018-07-04] MEDS: Insulin Glargine 60 UNITS in Pre-Filled Syringe 1 EACH SC SCH (21:14)
[2018-07-05 05:35] LABS: #Eosinphils 0.1 thou/uL (0.0-0.7); #Lymphocytes 2.5 thou/uL (1.20-3.40); #Monocytes 0.8 thou/uL (0.11-0.59); %Basophils 0.1 % (0.0-1.0); %Eosinophils 0.7 % (0.0-10.0); %Lymphocytes 26.7 % (21.0-51.0); %Monocytes 8.4 % (0.0-10.0); %Neutrophils 64.1 % (42.0-75.0); Hemoglobin 15.8 g/dL (14.0-18.0); Mean Corpuscular HGB CONC 30.9 g/dL (32.0-36.0); Mean Corpuscular Hemoglobin 28.1 pg (27.0-31.0); Mean Corpuscular Volume 90.8 fL (78.0-98.0); Mean Platelet Volume 9.2 fL (7.4-10.4); Platelet Count 141 thou/uL (130-400); RBC Distribution Width 14.8 % (11.5-14.5); Red Blood Cell (RBC) Count 5.61 mill/uL (4.70-6.10); White Blood Cell (WBC) Count 9.4 thou/uL (4.8-10.8)
[2018-07-05 05:39] LABS: INR-International Normal Ratio 1.7; PTT 33.8 SEC (22.9-36.1)
[2018-07-05 05:47] LABS: Anion Gap 12 mmol/L (10-20); BUN (Urea Nitrogen) 49 mg/dL (8.4-25.7); Calc. Creatinine Clearance 66 mL/min (70-130); Calcium 9.6 mg/dL (7.8-10.44); Carbon Dioxide 29 mmol/L (23-31); Chloride 103 mmol/L (98-107); Estimated GFR-MDRD 51; Glucose 95 mg/dL (83-110); Magnesium 2.1 mg/dL (1.6-2.6); Potassium 4.2 mmol/L (3.5-5.1); Sodium 140 mmol/L (136-145)
[2018-07-05] MEDS: HumaLOG 300 UNITS/3 ML VIAL SC SCH ×3 (05:56→18:41)
[2018-07-05] MEDS: Levalbuterol HCl 0.63 MG/3 ML NEB NEB SCH ×3 (06:30→23:30)
--- NOTE | 2018-07-05 12:05 | PDOC.PN ---
- Subjective Encounter Start Date: 07/05/18 Encounter Start Time: 10:30 Subjective: no chest pain or sob, feels better - Objective Resuscitation Status: Resuscitation Status FULL:Full Resuscitation MAR Reviewed: Yes Vital Signs & Weight: Vital Signs (12 hours) Temp Pulse Resp BP Pulse Ox 07/05/18 06:30 89 16 92 L 07/05/18 04:00 97.5 F L 57 L 18 139/63 97 Weight Weight 236 lb 9.6 oz I&O: 07/04/18 07/05/18 07/06/18 06:59 06:59 06:59 Intake Total 1330 240 Output Total 2850 900 Balance -1520 -660 Result Diagrams: 07/05/18 04:56 07/05/18 04:56 Additional Labs: Accuchecks 07/05/18 07/04/18 07/04/18 05:53 20:49 17:57 POC Glucose 97 94 90 Phys Exam - Physical Examination HEENT: PERRLA, moist MMs Neck: no JVD, supple Respiratory: no wheezing, no rales Cardiovascular: RRR, no significant murmur Gastrointestinal: soft, non-tender, positive bowel sounds Musculoskeletal: no edema, pulses present Neurological: non-focal, moves all 4 limbs Psychiatric: normal affect, A&O x 3 Dx/Plan (1) V-tach Code(s): I47.2 - VENTRICULAR TACHYCARDIA Status: Acute (2) Acute respiratory failure with hypoxia and hypercapnia Code(s): J96.01 - ACUTE RESPIRATORY FAILURE WITH HYPOXIA; J96.02 - ACUTE RESPIRATORY FAILURE WITH HYPERCAPNIA Status: Resolved (3) Hypoglycemia Code(s): E16.2 - HYPOGLYCEMIA, UNSPECIFIED Status: Resolved (4) Chronic obstructive pulmonary disease with acute exacerbation Code(s): J44.1 - CHRONIC OBSTRUCTIVE PULMONARY DISEASE W (ACUTE) EXACERBATION Status: Acute (5) Acute exacerbation of CHF (congestive heart failure) Code(s): I50.9 - HEART FAILURE, UNSPECIFIED Status: Acute Qualifiers: Heart failure type: combined systolic and diastolic Qualified Code(s): I50.43 - Acute on chronic combined systolic (congestive) and diastolic ( congestive) heart failure Comment: ef of 35% (6) Afib Code(s): I48.91 - UNSPECIFIED ATRIAL FIBRILLATION Status: Chronic Qualifiers: Atrial fibrillation type: chronic Qualified Code(s): I48.2 - Chronic atrial fibrillation (7) HTN (hypertension) Code(s): I10 - ESSENTIAL (PRIMARY) HYPERTENSION Status: Chronic Qualifiers: Hypertension type: essential hypertension Qualified Code(s): I10 - Essential (primary) hypertension (8) Obesity (BMI 30-39.9) Code(s): E66.9 - OBESITY, UNSPECIFIED Status: Chronic (9) DM type 2 (diabetes mellitus, type 2) Status: Chronic Qualifiers: Diabetes mellitus chcf insulin use: with chcf use Diabetes mellitus complication status: with unspecified complications Qualified Code(s) : E11.8 - Type 2 diabetes mellitus with unspecified complications; Z79.4 - ferry terminal supervisor (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 Review of Systems - Medications/Allergies Allergies/Adverse Reactions: Allergies Allergy/AdvReac Type Severity Reaction Status Date / Time No Known Allergies Allergy Verified 07/02/18 10:12 Medications: Current Medications Acetaminophen (Tylenol) 650 mg PO Q4H PRN PRN Reason: Headache/Fever or Pain Last Admin: 07/03/18 00:30 Dose: 650 mg Al Hydroxide/Mg Hydroxide (Maalox) 30 ml PO Q6H PRN PRN Reason: Heartburn or Indigestion Amiodarone HCl (Cordarone) 400 mg PO TID [facility] Last Admin: 07/04/18 21:13 Dose: 400 mg Aspirin (Aspirin) 325 mg PO DAILY [facility] Last Admin: 07/04/18 09:03 Dose: 325 mg Atorvastatin Calcium (Lipitor) 40 mg PO HS [facility] Last Admin: 07/04/18 21:14 Dose: 40 mg Carvedilol (Coreg) 12.5 mg PO BID-[facility] Last Admin: 07/04/18 17:52 Dose: 12.5 mg Cefdinir (Omnicef) 300 mg PO BID [facility] Last Admin: 07/04/18 21:13 Dose: 300 mg Dextrose/Water (Dextrose 50%) 25 gm SLOW IVP PRN PRN PRN Reason: Hypoglycemia Docusate Sodium (Colace) 100 mg PO BID [facility] Last Admin: 07/04/18 21:15 Dose: 100 mg Furosemide (Lasix) 40 mg PO DAILY-AC [facility] Glucagon (Glucagon) 1 mg IM PRN PRN PRN Reason: Hypoglycemia Dextrose/Water (D5w) 1,000 mls @ 0 mls/hr IV .Q0M PRN PRN Reason: Hypoglycemia Insulin Glargine 60 units/ (Miscellaneous Medication) 0.6 mls @ 0 mls/hr SC 2230 [facility] Last Admin: 07/04/18 21:14 Dose: 0.6 mls Insulin Human Lispro (Humalog) 20 units SC 0700 [facility] Last Admin: 07/05/18 05:56 Dose: Not Given Insulin Human Lispro (Humalog) 30 units SC 1200 [facility] Last Admin: 07/04/18 12:33 Dose: 30 unit Insulin Human Lispro (Humalog) 32 units SC 1800 [facility] Last Admin: 07/04/18 17:53 Dose: 32 unit Levalbuterol HCl (Xopenex) 0.63 mg NEB F2XL-TA [facility] Last Admin: 07/05/18 06:30 Dose: 0.63 mg Lisinopril (Zestril) 5 mg PO BID [facility] Last Admin: 07/04/18 21:14 Dose: 5 mg Ondansetron HCl (Zofran) 4 mg IVP Q6H PRN PRN Reason: Nausea/Vomiting Senna (Senokot) 2 tab PO HSPRN PRN PRN Reason: Constipation
--- NOTE | 2018-07-05 13:12 | PDOC.CTH ---
Cardiology Progress Note - Subjective EP Progress Note: Seen and evaluated. Had stress test today. Remains NPO. Feeling well overall and without complaints. Denies heart racing, palpitations, chest pain/pressure, dizziness, passing out. - Objective Vital Signs Temp Pulse Resp BP BP Pulse Ox 07/05/18 08:05 98.2 F 61 16 156/67 H 100 07/05/18 06:30 89 16 92 L 07/05/18 04:00 97.5 F L 57 L 18 139/63 97 Weight 236 lb 9.6 oz 07/04/18 07/05/18 07/06/18 06:59 06:59 06:59 Intake Total 1330 240 Output Total 2850 900 Balance -1520 -660 - Physical Examination General/Neuro: alert & oriented x3, NAD Neck: carotid US brisk, no JVD present Lungs: CTA, unlabored respirations Heart: RRR Abdomen: NT/ND, soft Extremities: + edema B (3+ L>R) - Telemetry Telemetry Rhythm: SR - Labs Result Diagrams: 07/05/18 04:56 07/05/18 04:56 Troponin/CKMB CK-MB (CK-2) 4.8 ng/mL (0-6.6) 07/02/18 05:11 Troponin I 0.052 ng/mL (< 0.028) H 07/02/18 05:11 - Assessment/Plan 1. Monomorphic ventricular tachycardia, sustained and self terminating- 8 minute episode on 07/03 at 2030. No recurrence since then. Started on amiodarone for suppression 2. Congestive heart failure 3. Systolic heart failure, EF 30-40% newly diagnosed. 4. CAD with prior CABG, normal CURATORIAL SPECIALIST today 5. Chronic atrial fibrillation, asymptomatic, rate controlled 6. Chronic oral anticoagulation with warfarin, subtherapeutic INR, OAC on hold for potential procedures. 7. Type 2 diabetes mellitus, insulin dependent, severe hypoglycemia on admission Keep NPOMonday for potential ICD implant, pending [facility] results. Janae needs life vest if re-vascularized. Continue amiodarone loading.
[2018-07-05] MEDS: Cefdinir 300 MG CAP PO SCH ×2 (13:28→21:28)
[2018-07-05] MEDS: Acetaminophen 325 MG TAB PO PRN (13:28)
[2018-07-05] MEDS: Amiodarone 200 MG TAB PO SCH ×3 (13:29→21:29)
[2018-07-05] MEDS: Aspirin 325 MG TAB PO SCH (13:29)
[2018-07-05] MEDS: Carvedilol 6.25 MG TAB PO SCH ×2 (13:30→16:33)
[2018-07-05] MEDS: Docusate 100 MG CAP PO SCH ×2 (13:31→21:28)
[2018-07-05] MEDS: Lisinopril 5 MG TAB PO SCH ×2 (13:31→21:28)
--- NOTE | 2018-07-05 13:52 | NM ---
CARDIAC SPECT: CLINICAL HISTORY: 78-year-old male with coronary artery disease, CABG, atrial fibrillation, diabetes, and dyslipidemia. TECHNIQUE: A myocardial perfusion scan was performed using the single isotope one day protocol with technetium-9 9m sestamibi. 10 mCi were injected intravenously for the rest exam followed by 33 mCi for the stress exam. Pharmacologic stress with Lexiscan was monitored and interpreted by Dr. Saravia. FINDINGS: No fixed or reversible defects are seen. GATED SPECT LVEF: 35%. WALL MOTION EXAM: Global hypokinesis. IMPRESSION: No evidence of reversible ischemia. POS: TABITHA
[2018-07-05] MEDS ORDERED: Regadenoson 0.4 MG/5 ML SYRINGE ONE (15:57)
[2018-07-05] MEDS: Furosemide 40 MG TAB PO SCH (18:54)
[2018-07-05] MEDS: Atorvastatin Calcium 40 MG TAB PO SCH (21:29)
[2018-07-05] MEDS: Enoxaparin Sodium 120 MG/0.8 ML SYRINGE SC SCH (21:29)
[2018-07-05] MEDS: Insulin Glargine 60 UNITS in Pre-Filled Syringe 1 EACH SC SCH (21:30)
[2018-07-06] MEDS ORDERED: Lidocaine 1% (PF) 30 ML VIAL ONE (06:59)
[2018-07-06 08:26] LABS: #Basophils 0.1 thou/uL (0.0-0.2); #Eosinphils 0.2 thou/uL (0.0-0.7); #Lymphocytes 2.2 thou/uL (1.20-3.40); #Monocytes 0.8 thou/uL (0.11-0.59); %Basophils 0.7 % (0.0-1.0); %Eosinophils 2.9 % (0.0-10.0); %Lymphocytes 30.7 % (21.0-51.0); %Neutrophils 54.7 % (42.0-75.0); Hemoglobin 16.3 g/dL (14.0-18.0); Mean Corpuscular HGB CONC 31.3 g/dL (32.0-36.0); Mean Corpuscular Hemoglobin 28.5 pg (27.0-31.0); Mean Platelet Volume 8.9 fL (7.4-10.4); Platelet Count 144 thou/uL (130-400); RBC Distribution Width 14.8 % (11.5-14.5); Red Blood Cell (RBC) Count 5.73 mill/uL (4.70-6.10); White Blood Cell (WBC) Count 7.3 thou/uL (4.8-10.8)
[2018-07-06] MEDS: Enoxaparin Sodium 120 MG/0.8 ML SYRINGE SC SCH (08:47)
[2018-07-06] MEDS: Furosemide 40 MG TAB PO SCH (08:48)
[2018-07-06] MEDS: Cefdinir 300 MG CAP PO SCH ×2 (08:48→21:01)
[2018-07-06] MEDS: Docusate 100 MG CAP PO SCH ×2 (08:48→21:01)
[2018-07-06] MEDS: Aspirin 325 MG TAB PO SCH (08:48)
[2018-07-06] MEDS: Amiodarone 200 MG TAB PO SCH ×3 (08:49→21:01)
[2018-07-06] MEDS: Lisinopril 5 MG TAB PO SCH (08:49)
[2018-07-06] MEDS: Carvedilol 6.25 MG TAB PO SCH ×2 (08:49→18:20)
[2018-07-06] MEDS: HumaLOG 300 UNITS/3 ML VIAL SC SCH ×3 (08:51→19:27)
[2018-07-06 08:55] LABS: Anion Gap 13 mmol/L (10-20); BUN (Urea Nitrogen) 60 mg/dL (8.4-25.7); Calc. Creatinine Clearance 59 mL/min (70-130); Calcium 9.9 mg/dL (7.8-10.44); Carbon Dioxide 30 mmol/L (23-31); Chloride 104 mmol/L (98-107); Estimated GFR-MDRD 41; Glucose 96 mg/dL (83-110); Potassium 4.2 mmol/L (3.5-5.1); Sodium 143 mmol/L (136-145)
[2018-07-06] MEDS ORDERED: Lisinopril 5 MG TAB PO SCH (09:00)
[2018-07-06] MEDS: Levalbuterol HCl 0.63 MG/3 ML NEB NEB SCH ×3 (09:48→22:57)
--- NOTE | 2018-07-06 13:43 | PDOC.PN ---
- Subjective Encounter Start Date: 07/06/18 Encounter Start Time: 12:00 Subjective: no sob or palpitations -: feels better, is sitting in chair - Objective Resuscitation Status: Resuscitation Status FULL:Full Resuscitation MAR Reviewed: Yes Vital Signs & Weight: Vital Signs (12 hours) Temp Pulse Resp BP BP BP Pulse Ox 07/06/18 12:17 67 140/63 07/06/18 11:32 66 18 129/61 07/06/18 08:49 67 140/63 07/06/18 08:02 97.5 F L 67 16 140/63 07/06/18 04:14 97.7 F 69 18 156/72 H 85 L 07/06/18 04:00 94 L Weight Weight 252 lb I&O: 07/05/18 07/06/18 07/07/18 06:59 06:59 06:59 Intake Total 240 150 Output Total 900 Balance -660 150 Result Diagrams: 07/06/18 08:08 07/06/18 08:08 Additional Labs: Accuchecks 07/06/18 07/06/18 07/05/18 11:05 05:40 21:13 POC Glucose 97 85 150 H 07/05/18 17:20 POC Glucose 138 H Phys Exam - Physical Examination HEENT: PERRLA, moist MMs Neck: no JVD, supple Respiratory: no wheezing, no rales Cardiovascular: RRR, no significant murmur Gastrointestinal: soft, non-tender, positive bowel sounds Musculoskeletal: pulses present, edema present Neurological: non-focal, moves all 4 limbs Psychiatric: normal affect, A&O x 3 Dx/Plan (1) V-tach Code(s): I47.2 - VENTRICULAR TACHYCARDIA Status: Acute (2) Acute respiratory failure with hypoxia and hypercapnia Code(s): J96.01 - ACUTE RESPIRATORY FAILURE WITH HYPOXIA; J96.02 - ACUTE RESPIRATORY FAILURE WITH HYPERCAPNIA Status: Resolved (3) Hypoglycemia Code(s): E16.2 - HYPOGLYCEMIA, UNSPECIFIED Status: Resolved (4) Chronic obstructive pulmonary disease with acute exacerbation Code(s): J44.1 - CHRONIC OBSTRUCTIVE PULMONARY DISEASE W (ACUTE) EXACERBATION Status: Acute (5) Acute exacerbation of CHF (congestive heart failure) Code(s): I50.9 - HEART FAILURE, UNSPECIFIED Status: Acute Qualifiers: Heart failure type: combined systolic and diastolic Qualified Code(s): I50.43 - Acute on chronic combined systolic (congestive) and diastolic ( congestive) heart failure Comment: ef of 35% (6) Afib Code(s): I48.91 - UNSPECIFIED ATRIAL FIBRILLATION Status: Chronic Qualifiers: Atrial fibrillation type: chronic Qualified Code(s): I48.2 - Chronic atrial fibrillation (7) HTN (hypertension) Code(s): I10 - ESSENTIAL (PRIMARY) HYPERTENSION Status: Chronic Qualifiers: Hypertension type: essential hypertension Qualified Code(s): I10 - Essential (primary) hypertension (8) Obesity (BMI 30-39.9) Code(s): E66.9 - OBESITY, UNSPECIFIED Status: Chronic (9) DM type 2 (diabetes mellitus, type 2) Status: Chronic Qualifiers: 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 Diabetes mellitus complication status: with unspecified complications Qualified Code(s) : E11.8 - Type 2 diabetes mellitus with unspecified complications; Z79.4 - pen[facility]entiary (current) use of insulin (10) LEON (obstructive sleep apnea) Code(s): G47.33 - OBSTRUCTIVE SLEEP APNEA (ADULT) (PEDIATRIC) Status: Chronic Comment: noncompliant with cpap - Plan stress test is -ve for reversible ischemia -: for likely aicd on sunday, in sinus rhythm on -: is on amiodarone tid po along with coreg -: oral lasix, spironolactone, asp, lipitor and lisinopril -: reduce lovenox to once daily due to renal function * . Review of Systems - Medications/Allergies Allergies/Adverse Reactions: Allergies Allergy/AdvReac Type Severity Reaction Status Date / Time No Known Allergies Allergy Verified 07/02/18 10:12 Medications: Current Medications Acetaminophen (Tylenol) 650 mg PO Q4H PRN PRN Reason: Headache/Fever or Pain Last Admin: 07/05/18 13:28 Dose: 650 mg Al Hydroxide/Mg Hydroxide (Maalox) 30 ml PO Q6H PRN PRN Reason: Heartburn or Indigestion Amiodarone HCl (Cordarone) 400 mg PO BID [facility] Last Admin: 07/06/18 12:17 Dose: Not Given Aspirin (Aspirin) 325 mg PO DAILY [facility] Last Admin: 07/06/18 08:48 Dose: 325 mg Atorvastatin Calcium (Lipitor) 40 mg PO HS [facility] Last Admin: 07/05/18 21:29 Dose: 40 mg Carvedilol (Coreg) 12.5 mg PO BID-[facility] Last Admin: 07/06/18 08:49 Dose: 12.5 mg Cefdinir (Omnicef) 300 mg PO BID [facility] Last Admin: 07/06/18 08:48 Dose: 300 mg Dextrose/Water (Dextrose 50%) 25 gm SLOW IVP PRN PRN PRN Reason: Hypoglycemia Docusate Sodium (Colace) 100 mg PO BID [facility] Last Admin: 07/06/18 08:48 Dose: 100 mg Enoxaparin Sodium (Lovenox) 110 mg SC DAILY [facility] Glucagon (Glucagon) 1 mg IM PRN PRN PRN Reason: Hypoglycemia Dextrose/Water (D5w) 1,000 mls @ 0 mls/hr IV .Q0M PRN PRN Reason: Hypoglycemia Insulin Glargine 60 units/ (Miscellaneous Medication) 0.6 mls @ 0 mls/hr SC 2230 [facility] Last Admin: 07/05/18 21:30 Dose: 0.6 mls Insulin Human Lispro (Humalog) 20 units SC 0700 [facility] Last Admin: 07/06/18 08:51 Dose: 20 unit Insulin Human Lispro (Humalog) 30 units SC 1200 [facility] Last Admin: 07/06/18 12:21 Dose: 30 unit Insulin Human Lispro (Humalog) 32 units SC 1800 [facility] Last Admin: 07/05/18 18:41 Dose: 32 unit Levalbuterol HCl (Xopenex) 0.63 mg NEB [id number] [facility] Last Admin: 07/06/18 09:48 Dose: Not Given Lisinopril (Zestril) 2.5 mg PO DAILY [facility] Ondansetron HCl (Zofran) 4 mg IVP Q6H PRN PRN Reason: Nausea/Vomiting Senna (Senokot) 2 tab PO HSPRN PRN PRN Reason: Constipation
[2018-07-06] MEDS ORDERED: HumaLOG 300 UNITS/3 ML VIAL SC SCH (18:15)
[2018-07-06] MEDS: Atorvastatin Calcium 40 MG TAB PO SCH (21:01)
[2018-07-06] MEDS: Insulin Glargine 60 UNITS in Pre-Filled Syringe 1 EACH SC SCH (22:18)
[2018-07-06] MEDS ORDERED: Sodium Chloride For Inhalation 0.9% 3 ML NEB ONE (22:53)
[2018-07-07 05:44] LABS: INR-International Normal Ratio 1.4; PTT 37.7 SEC (22.9-36.1); Prothrombin Time 16.8 SEC (12.0-14.7)
[2018-07-07 05:52] LABS: Anion Gap 12 mmol/L (10-20); BUN (Urea Nitrogen) 59 mg/dL (8.4-25.7); Calc. Creatinine Clearance 62 mL/min (70-130); Calcium 9.5 mg/dL (7.8-10.44); Carbon Dioxide 31 mmol/L (23-31); Chloride 103 mmol/L (98-107); Estimated GFR-MDRD 44; Glucose 84 mg/dL (83-110); Potassium 4.2 mmol/L (3.5-5.1); Sodium 142 mmol/L (136-145)
[2018-07-07] MEDS ORDERED: HumaLOG 300 UNITS/3 ML VIAL SC SCH ×5 (07:28→18:00)
[2018-07-07] MEDS: Levalbuterol HCl 0.63 MG/3 ML NEB NEB SCH ×3 (07:32→23:44)
[2018-07-07] MEDS: Carvedilol 6.25 MG TAB PO SCH ×2 (08:17→17:34)
[2018-07-07] MEDS: Amiodarone 200 MG TAB PO SCH ×2 (08:18→20:48)
[2018-07-07] MEDS: Aspirin 325 MG TAB PO SCH (08:18)
[2018-07-07] MEDS: Lisinopril 2.5 MG TAB PO SCH (08:19)
[2018-07-07] MEDS: Cefdinir 300 MG CAP PO SCH ×2 (08:19→20:48)
[2018-07-07] MEDS: Docusate 100 MG CAP PO SCH ×2 (08:19→20:48)
[2018-07-07] MEDS ORDERED: Enoxaparin Sodium 120 MG/0.8 ML SYRINGE SC SCH (09:00)
--- NOTE | 2018-07-07 10:41 | PDOC.PN ---
- Subjective Encounter Start Date: 07/07/18 Encounter Start Time: 10:00 Subjective: no sob or palp -: is sitting in chair - Objective Resuscitation Status: Resuscitation Status FULL:Full Resuscitation MAR Reviewed: Yes Vital Signs & Weight: Vital Signs (12 hours) Temp Pulse Resp BP BP BP Pulse Ox 07/07/18 08:19 63 154/87 H 07/07/18 08:17 154/87 H 07/07/18 07:35 92 L 07/07/18 07:32 67 16 92 L 07/07/18 06:52 97.7 F 54 L 18 154/87 H 96 07/07/18 04:00 97.4 F L 62 16 131/59 L 92 L 07/06/18 22:58 93 L 07/06/18 22:57 93 L Weight Weight 251 lb 8 oz I&O: 07/06/18 07/07/18 07/08/18 06:59 06:59 06:59 Intake Total 150 790 Output Total 450 Balance 150 340 Result Diagrams: 07/06/18 08:08 07/07/18 05:17 Additional Labs: Accuchecks 07/07/18 07/06/18 07/06/18 05:50 21:00 20:08 POC Glucose 90 148 H 127 H 07/06/18 07/06/18 07/06/18 17:39 16:29 11:05 POC Glucose 95 59 L* 97 Phys Exam - Physical Examination HEENT: PERRLA, moist MMs Neck: no JVD, supple Respiratory: no wheezing, no rales Cardiovascular: no significant murmur, irregular Gastrointestinal: soft, non-tender, positive bowel sounds Musculoskeletal: pulses present, edema present Neurological: non-focal, moves all 4 limbs Psychiatric: A&O x 3 Dx/Plan (1) V-tach Code(s): I47.2 - VENTRICULAR TACHYCARDIA Status: Acute (2) Acute respiratory failure with hypoxia and hypercapnia Code(s): J96.01 - ACUTE RESPIRATORY FAILURE WITH HYPOXIA; J96.02 - ACUTE RESPIRATORY FAILURE WITH HYPERCAPNIA Status: Resolved (3) Hypoglycemia Code(s): E16.2 - HYPOGLYCEMIA, UNSPECIFIED Status: Resolved (4) Chronic obstructive pulmonary disease with acute exacerbation Code(s): J44.1 - CHRONIC OBSTRUCTIVE PULMONARY DISEASE W (ACUTE) EXACERBATION Status: Acute (5) Acute exacerbation of CHF (congestive heart failure) Code(s): I50.9 - HEART FAILURE, UNSPECIFIED Status: Acute Qualifiers: Heart failure type: combined systolic and diastolic Qualified Code(s): I50.43 - Acute on chronic combined systolic (congestive) and diastolic ( congestive) heart failure Comment: ef of 35% (6) Afib Code(s): I48.91 - UNSPECIFIED ATRIAL FIBRILLATION Status: Chronic Qualifiers: Atrial fibrillation type: chronic Qualified Code(s): I48.2 - Chronic atrial fibrillation (7) HTN (hypertension) Code(s): I10 - ESSENTIAL (PRIMARY) HYPERTENSION Status: Chronic Qualifiers: Hypertension type: essential hypertension Qualified Code(s): I10 - Essential (primary) hypertension (8) Obesity (BMI 30-39.9) Code(s): E66.9 - OBESITY, UNSPECIFIED Status: Chronic (9) DM type 2 (diabetes mellitus, type 2) Status: Chronic Qualifiers: 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 Lasix held for renal function to recover. * . Review of Systems - Medications/Allergies Allergies/Adverse Reactions: Allergies Allergy/AdvReac Type Severity Reaction Status Date / Time No Known Allergies Allergy Verified 07/02/18 10:12 Medications: Current Medications Acetaminophen (Tylenol) 650 mg PO Q4H PRN PRN Reason: Headache/Fever or Pain Last Admin: 07/05/18 13:28 Dose: 650 mg Al Hydroxide/Mg Hydroxide (Maalox) 30 ml PO Q6H PRN PRN Reason: Heartburn or Indigestion Amiodarone HCl (Cordarone) 400 mg PO BID [facility] Last Admin: 07/07/18 08:18 Dose: 400 mg Aspirin (Aspirin) 325 mg PO DAILY [facility] Last Admin: 07/07/18 08:18 Dose: 325 mg Atorvastatin Calcium (Lipitor) 40 mg PO HS [facility] Last Admin: 07/06/18 21:01 Dose: 40 mg Carvedilol (Coreg) 12.5 mg PO BID-[facility] Last Admin: 07/07/18 08:17 Dose: 12.5 mg Cefdinir (Omnicef) 300 mg PO BID [facility] Last Admin: 07/07/18 08:19 Dose: 300 mg Dextrose/Water (Dextrose 50%) 25 gm SLOW IVP PRN PRN PRN Reason: Hypoglycemia Docusate Sodium (Colace) 100 mg PO BID [facility] Last Admin: 07/07/18 08:19 Dose: 100 mg Enoxaparin Sodium (Lovenox) 110 mg SC DAILY [facility] Last Admin: 07/07/18 08:15 Dose: 110 mg Glucagon (Glucagon) 1 mg IM PRN PRN PRN Reason: Hypoglycemia Dextrose/Water (D5w) 1,000 mls @ 0 mls/hr IV .Q0M PRN PRN Reason: Hypoglycemia Insulin Glargine 60 units/ (Miscellaneous Medication) 0.6 mls @ 0 mls/hr SC 2230 [facility] Last Admin: 07/06/18 22:18 Dose: 0.6 mls Insulin Human Lispro (Humalog) 20 units SC 1200 [facility] Insulin Human Lispro (Humalog) 10 units SC 1800 [facility] Insulin Human Lispro (Humalog) 10 units SC 0700 [facility] Levalbuterol HCl (Xopenex) 0.63 mg NEB [id number] [facility] Last Admin: 07/07/18 07:32 Dose: 0.63 mg Lisinopril (Zestril) 2.5 mg PO DAILY [facility] Last Admin: 07/07/18 08:19 Dose: 2.5 mg Ondansetron HCl (Zofran) 4 mg IVP Q6H PRN PRN Reason: Nausea/Vomiting Senna (Senokot) 2 tab PO HSPRN PRN PRN Reason: Constipation
[2018-07-07] MEDS ORDERED: Communication Order-Pharmacy FS SCH (10:45)
--- NOTE | 2018-07-07 20:41 | EKG ---
Test Reason : RHYTHM CHANGE Blood Pressure : / mmHG Vent. Rate : 083 BPM Atrial Rate : 075 BPM P-R Int : 000 ms QRS Dur : 112 ms QT Int : 400 ms P-R-T Axes : 000 -30 129 degrees QTc Int : 470 ms Atrial fibrillation with premature ventricular or aberrantly conducted complexes Left axis deviation Abnormal ECG When compared with ECG of 02-JUL-2018 04:52, (Unconfirmed) Incomplete left bundle branch block is no longer Present Confirmed by Rut SIMPSON ([id number]) on 07/07/2018 8:41:05 PM Referred By: PRAMOD Confirmed By:Rut SIMPSON
[2018-07-07] MEDS: HumaLOG 300 UNITS/3 ML VIAL SC SCH (20:45)
[2018-07-07] MEDS: Atorvastatin Calcium 40 MG TAB PO SCH (20:48)
[2018-07-07] MEDS: Insulin Glargine 60 UNITS in Pre-Filled Syringe 1 EACH SC SCH (22:10)
[2018-07-08] MEDS: Sodium Chloride 0.45% 1,000 ML IV SCH ×2 (06:15→18:30)
[2018-07-08 06:18] LABS: Anion Gap 13 mmol/L (10-20); BUN (Urea Nitrogen) 49 mg/dL (8.4-25.7); Calc. Creatinine Clearance 73 mL/min (70-130); Calcium 9.4 mg/dL (7.8-10.44); Carbon Dioxide 24 mmol/L (23-31); Chloride 107 mmol/L (98-107); Estimated GFR-MDRD 53; Glucose 115 mg/dL (83-110); Potassium 4.3 mmol/L (3.5-5.1); Sodium 140 mmol/L (136-145)
[2018-07-08] MEDS: Lisinopril 2.5 MG TAB PO SCH (06:19)
[2018-07-08] MEDS: Carvedilol 6.25 MG TAB PO SCH ×2 (06:19→17:57)
[2018-07-08] MEDS: Amiodarone 200 MG TAB PO SCH ×2 (06:19→21:24)
[2018-07-08] MEDS: Cefdinir 300 MG CAP PO SCH ×2 (06:19→21:24)
[2018-07-08] MEDS: Aspirin 325 MG TAB PO SCH (06:19)
[2018-07-08] MEDS: Docusate 100 MG CAP PO SCH ×2 (06:19→21:24)
[2018-07-08] MEDS ORDERED: Lidocaine 1% (PF) 30 ML VIAL ONE ×3 (06:45→11:31)
[2018-07-08] MEDS ORDERED: HumaLOG 300 UNITS/3 ML VIAL SC SCH ×2 (07:00→18:00)
[2018-07-08] MEDS ORDERED: Midazolam HCl 2 mg/2 ml Vial ONE ×2 (08:58→11:24)
[2018-07-08] MEDS ORDERED: Atropine Sulfate 1 mg/1 ml Vial ONE (09:44)
[2018-07-08] MEDS ORDERED: Iopamidol 370 76% 50 ML VIAL FS ONE (10:31)
[2018-07-08] MEDS ORDERED: Iopamidol 370 76% 100 ML VIAL ONE (10:31)
[2018-07-08] MEDS: Levalbuterol HCl 0.63 MG/3 ML NEB NEB SCH ×3 (10:31→22:18)
[2018-07-08] MEDS ORDERED: Gentamicin 80 MG/2 ML VIAL ONE (11:31)
[2018-07-08] MEDS ORDERED: CEFAZOLIN/Water 2 GM/20 ML SYRINGE ONE (11:31)
[2018-07-08] MEDS ORDERED: CEFAZOLIN 1 GM VIAL ONE (11:31)
--- NOTE | 2018-07-08 13:09 | OP ---
PROCEDURE: ICD implant. PREOPERATIVE DIAGNOSIS: Sustained ventricular tachycardia. PROCEDURE DETAILS: The patient came to the EP lab in the postabsorptive state. Informed consent was obtained. A timeout was called. The patient was sedated by member of the Anesthesia staff. Once p atient adequately sedated, the left chest area was prepped and draped in usual sterile fashion. A 10 mL venogram demonstrated patency of left subclavian vein system. A 4 cm incision was made parallel to the deltopectoral groove, but below the clavicle. Incision was carried down to the prepectoral fa scia using combination of electrocautery and blunt dissection. Using a modified Seldinger technique and with a micro access needle access was obtained x1 into the left subclavian vein. This peel-away sheath was advanced and through this a Medtronic [id number] cm lead was advanced, placed in the right v entricular apical septum. Once adequate sensing and thresholds were obtained, the lead was secured b y extension of the helix. Following this, the sheath was peeled away and lead was secured to the pre pectoral fascia with 0 silk suture x2. Final numbers were obtained and as follows: AK wave was 11.4 , impedance 531, threshold 0.5 volts at 0.5 milliseconds. The device was then connected to the leads with care to ensure that the pin went all the way to the end of the pin block in the header. The po cket was copiously irrigated with antibiotic solution and the ICD with lead was placed into the pocke t with care to ensure that the lead was underneath the device. A stay suture was utilized the pocket was then closed with a 2-0, 3-0 and 4-0 Vicryl suture followed by Dermabond for the skin. Testing w as deferred because the patient was in chronic atrial fibrillation, was off anticoagulant therapy. PROCEDURE PERFORMED: A single chamber ICD implantation. COMPLICATIONS: None acute. ESTIMATED BLOOD LOSS: Less than 30 mL. CONCLUSIONS: Successful ICD single chamber implant. RECOMMENDATIONS: The patient will be at bed rest. He will follow up with electrophysiology for woun d check.
--- NOTE | 2018-07-08 14:14 | RAD ---
PORTABLE UPRIGHT FRONTAL CHEST RADIOGRAPH: DATE: 07/08/2018. COMPARISON: None. HISTORY: Status post cardiac device placement. FINDINGS: A single-lead transvenous pacing device noted. No pneumothorax, pleural fluid, lobar consolidation, or alveolar edema. There is pulmonary vascular congestion and mild perihilar interstitial prominence . A mild degree of interstitial edema cannot be excluded. Midline sternotomy wires and mediastinal clips are present. Cardiac silhouette is prominent. IMPRESSION: Single lead left AICD with no evidence for pneumothorax. Prominent cardiac silhouette with pulmonary vascular congestion and questionable mild interstitial edema. POS: RANDYH
[2018-07-08] MEDS ORDERED: Warfarin Sodium 5 MG TAB PO SCH (17:00)
--- NOTE | 2018-07-08 17:38 | PDOC.PN ---
- Subjective Encounter Start Date: 07/08/18 Encounter Start Time: 16:45 Subjective: no sob or chest pain -: has lot of family around him - Objective Resuscitation Status: Resuscitation Status FULL:Full Resuscitation MAR Reviewed: Yes Vital Signs & Weight: Vital Signs (12 hours) Temp Pulse Resp BP BP BP BP 07/08/18 16:00 97.1 F L 61 14 120/57 L 07/08/18 15:23 07/08/18 15:19 67 12 07/08/18 11:00 59 L 16 153/66 H 07/08/18 07:40 97.7 F 61 15 128/60 07/08/18 06:19 64 169/67 H Pulse Ox 07/08/18 16:00 94 L 07/08/18 15:23 93 L 07/08/18 15:19 07/08/18 11:00 94 L 07/08/18 07:40 98 07/08/18 06:19 Weight Weight 251 lb 6.4 oz I&O: 07/07/18 07/08/18 07/09/18 06:59 06:59 06:59 Intake Total 790 860 Output Total 450 925 Balance 340 -65 Result Diagrams: 07/06/18 08:08 07/08/18 05:54 Additional Labs: Accuchecks 07/08/18 07/07/18 17:04 20:44 POC Glucose 130 H 139 H Phys Exam - Physical Examination HEENT: PERRLA, moist MMs Neck: no JVD, supple Respiratory: no wheezing, no rales Cardiovascular: RRR, no significant murmur left infraclavicular icd incision is clean Gastrointestinal: soft, non-tender, positive bowel sounds Musculoskeletal: no edema, pulses present Neurological: non-focal, moves all 4 limbs Psychiatric: normal affect, A&O x 3 Dx/Plan (1) V-tach Code(s): I47.2 - VENTRICULAR TACHYCARDIA Status: Acute (2) Acute respiratory failure with hypoxia and hypercapnia Code(s): J96.01 - ACUTE RESPIRATORY FAILURE WITH HYPOXIA; J96.02 - ACUTE RESPIRATORY FAILURE WITH HYPERCAPNIA Status: Resolved (3) Hypoglycemia Code(s): E16.2 - HYPOGLYCEMIA, UNSPECIFIED Status: Resolved (4) Chronic obstructive pulmonary disease with acute exacerbation Code(s): J44.1 - CHRONIC OBSTRUCTIVE PULMONARY DISEASE W (ACUTE) EXACERBATION Status: Acute (5) Acute exacerbation of CHF (congestive heart failure) Code(s): I50.9 - HEART FAILURE, UNSPECIFIED Status: Acute Qualifiers: Heart failure type: combined systolic and diastolic Qualified Code(s): I50.43 - Acute on chronic combined systolic (congestive) and diastolic ( congestive) heart failure Comment: ef of 35% (6) Afib Code(s): I48.91 - UNSPECIFIED ATRIAL FIBRILLATION Status: Chronic Qualifiers: Atrial fibrillation type: chronic Qualified Code(s): I48.2 - Chronic atrial fibrillation (7) HTN (hypertension) Code(s): I10 - ESSENTIAL (PRIMARY) HYPERTENSION Status: Chronic Qualifiers: Hypertension type: essential hypertension Qualified Code(s): I10 - Essential (primary) hypertension (8) Obesity (BMI 30-39.9) Code(s): E66.9 - OBESITY, UNSPECIFIED Status: Chronic (9) DM type 2 (diabetes mellitus, type 2) Status: Chronic Qualifiers: Diabetes mellitus care home insulin use: with care home use Diabetes mellitus complication status: with unspecified complications Qualified Code(s) : E11.8 - Type 2 diabetes mellitus with unspecified complications; Z79.4 - prison (current) use of insulin (10) LEON (obstructive sleep apnea) Code(s): G47.33 - OBSTRUCTIVE SLEEP APNEA (ADULT) (PEDIATRIC) Status: Chronic Comment: noncompliant with cpap - Plan s/p AICD done today -: cardiac cath results reviewed -: hemostable, dm is stable -: dc plan in am if ok with EP/Cardio -: is on amio, coreg, lisinopril, asp and lipitor * . Review of Systems - Medications/Allergies Allergies/Adverse Reactions: Allergies Allergy/AdvReac Type Severity Reaction Status Date / Time No Known Allergies Allergy Verified 07/02/18 10:12 Medications: Current Medications Acetaminophen (Tylenol) 650 mg PO Q4H PRN PRN Reason: Headache/Fever or Pain Last Admin: 07/05/18 13:28 Dose: 650 mg Al Hydroxide/Mg Hydroxide (Maalox) 30 ml PO Q6H PRN PRN Reason: Heartburn or Indigestion Amiodarone HCl (Cordarone) 400 mg PO BID [facility] Last Admin: 07/08/18 06:19 Dose: 400 mg Aspirin (Aspirin) 325 mg PO DAILY [facility] Last Admin: 07/08/18 06:19 Dose: 325 mg Atorvastatin Calcium (Lipitor) 40 mg PO HS [facility] Last Admin: 07/07/18 20:48 Dose: 40 mg Carvedilol (Coreg) 12.5 mg PO BID[facility] Last Admin: 07/08/18 06:19 Dose: 12.5 mg Cefdinir (Omnicef) 300 mg PO BID [facility] Last Admin: 07/08/18 06:19 Dose: 300 mg Dextrose/Water (Dextrose 50%) 25 gm SLOW IVP PRN PRN PRN Reason: Hypoglycemia Docusate Sodium (Colace) 100 mg PO BID [facility] Last Admin: 07/08/18 06:19 Dose: 100 mg Glucagon (Glucagon) 1 mg IM PRN PRN PRN Reason: Hypoglycemia Dextrose/Water (D5w) 1,000 mls @ 0 mls/hr IV .Q0M PRN PRN Reason: Hypoglycemia Insulin Glargine 60 units/ (Miscellaneous Medication) 0.6 mls @ 0 mls/hr SC 2230 [facility] Insulin Human Lispro (Humalog) 20 units SC 1200 [facility] Insulin Human Lispro (Humalog) 10 units SC 1800 [facility] Insulin Human Lispro (Humalog) 10 units SC 0700 [facility] Levalbuterol HCl (Xopenex) 0.63 mg NEB [id number] [facility] Last Admin: 07/08/18 15:19 Dose: 0.63 mg Lisinopril (Zestril) 2.5 mg PO DAILY [facility] Last Admin: 07/08/18 06:19 Dose: 2.5 mg Ondansetron HCl (Zofran) 4 mg IVP Q6H PRN PRN Reason: Nausea/Vomiting Senna (Senokot) 2 tab PO HSPRN PRN PRN Reason: Constipation Warfarin Sodium (Coumadin) 5 mg PO 1700 [facility]
[2018-07-08] MEDS: Atorvastatin Calcium 40 MG TAB PO SCH (21:24)
[2018-07-08] MEDS ORDERED: Insulin Glargine 60 UNITS in Pre-Filled Syringe 1 EACH SC SCH (22:30)
[2018-07-09] MEDS: Acetaminophen 325 MG TAB PO PRN (05:23)
[2018-07-09 06:13] LABS: Anion Gap 13 mmol/L (10-20); BUN (Urea Nitrogen) 37 mg/dL (8.4-25.7); Calc. Creatinine Clearance 89 mL/min (70-130); Carbon Dioxide 26 mmol/L (23-31); Chloride 106 mmol/L (98-107); Estimated GFR-MDRD 66; Glucose 121 mg/dL (83-110); Potassium 4.7 mmol/L (3.5-5.1); Sodium 140 mmol/L (136-145)
[2018-07-09] MEDS ORDERED: HumaLOG 300 UNITS/3 ML VIAL SC SCH ×2 (07:00→12:00)
[2018-07-09] MEDS ORDERED: Sodium Chloride 0.9% 10 ML ONE (07:44)
[2018-07-09 08:53] VITALS: TEMP 97.6
[2018-07-09] MEDS: Docusate 100 MG CAP PO SCH (08:58)
[2018-07-09] MEDS: Lisinopril 2.5 MG TAB PO SCH (08:58)
[2018-07-09] MEDS: Cephalexin 250 MG CAP PO SCH ×2 (09:03→13:37)
[2018-07-09] MEDS: Cefdinir 300 MG CAP PO SCH (09:06)
[2018-07-09] MEDS: Carvedilol 6.25 MG TAB PO SCH (09:06)
[2018-07-09] MEDS ORDERED: Carvedilol 25 MG TAB PO SCH ×2 (09:15→17:00)
[2018-07-09] MEDS: Levalbuterol HCl 0.63 MG/3 ML NEB NEB SCH ×2 (09:17→14:19)
[2018-07-09 09:25] LABS: INR-International Normal Ratio 1.2
[2018-07-09 11:49] VITALS: BP 145/63
--- NOTE | 2018-07-09 12:37 | PDOC.CTH ---
Cardiology Progress Note - Subjective EP Progress Note: Seen and evaluated. ICD placed yesterday. Mild tenderness and bruising at site. Feeling well overall and without complaints. Denies heart racing, palpitations, chest pain/pressure, dizziness, passing out. Anticipating DC - Objective Vital Signs Temp Pulse Resp BP Pulse Ox 07/09/18 11:39 58 L 16 145/63 H 95 07/09/18 09:20 94 L 07/09/18 09:17 71 12 07/09/18 08:45 97.6 F 71 17 170/72 H 94 L 07/09/18 04:00 97.7 F 86 16 154/73 H 96 Weight 251 lb 2 oz 07/08/18 07/09/18 07/10/18 06:59 06:59 06:59 Intake Total 860 1160 Output Total 925 1300 Balance -65 -140 - Physical Examination General/Neuro: alert & oriented x3, NAD Neck: carotid US brisk, no JVD present Lungs: CTA, unlabored respirations Abdomen: NT/ND, soft - Telemetry Telemetry Rhythm: AFib, rate controlled - Labs Result Diagrams: 07/06/18 08:08 07/09/18 05:15 Troponin/CKMB CK-MB (CK-2) 4.8 ng/mL (0-6.6) 07/02/18 05:11 Troponin I 0.052 ng/mL (< 0.028) H 07/02/18 05:11 - Assessment/Plan 1. Monomorphic ventricular tachycardia, sustained and self terminating- 8 minute episode on 07/03 at 2030. No recurrence since then. Started on amiodarone for suppression 2. Congestive heart failure 3. Systolic heart failure, EF 30-40% newly diagnosed. 4. 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 Chronic atrial fibrillation, asymptomatic, rate controlled 6. Chronic oral anticoagulation with warfarin, subtherapeutic INR, Resume warfarin. 7. Type 2 diabetes mellitus, insulin dependent, severe hypoglycemia on admission 8. Single chamber ICD, medtronic visia placed 07/08/18. No pneumothorax, AM device check shows normal function. Continue post implant Keflex 250mg QID x 7 days. OK for DC by EP. Wound check with [facility] in 10-14 days.
[2018-07-09] MEDS ORDERED: Sacubitril 24.5 MG/Valsartan 25.5 MG TABLET PO SCH (21:00)
--- NOTE | 2018-07-10 00:31 | DIS ---
DATE OF ADMISSION: 07/02/2018 DATE OF DISCHARGE: 07/09/2018 CONDITION AT THE TIME OF DISCHARGE: Stable and improved. DISCHARGE DISPOSITION: Home. DISCHARGE DIAGNOSES: 1. Nonsustained ventricular tachycardia. 2. Acute hypoxic respiratory failure. 3. Acute congestive heart failure exacerbation, combined systolic and diastolic. 4. Chronic atrial fibrillation, on chronic anticoagulation. 5. Hypertension. 6. Obesity. 7. Diabetes mellitus. 8. Sleep apnea. 9. New diagnosis of cardiomyopathy, status post AICD placement. 10. Chronic obstructive pulmonary disease with acute bronchitis. PRIMARY CARE PHYSICIAN: WILLIAM Velazquez. DISCHARGE MEDICATIONS: New medications: Aspirin 162 mg daily, Keflex 250 mg p.o. q.i.d. for 7 days, Entresto 24.5/25.5 one tablet p.o. b.i.d. Resume home medications as follows: Lantus 60 units at b edtime, warfarin 5 mg daily, metformin 500 mg daily, fenofibric acid 48 mg daily, Lasix 40 mg daily, Coreg 25 mg p.o. b.i.d., atorvastatin 40 mg daily, Humalog insulin sliding scale t.i.d. per home dosa ges. INHOUSE CONSULTATIONS: 1. Cardiology, Dr Antony Saravia. 2. Pulmonary Medicine, Dr. Haji. 3. Electrophysiology, Dr. Carter. PROCEDURES DONE IN THE HOSPITAL: 1. Transthoracic echocardiogram, which shows ejection fraction of 30% to 40% with left ventricular h ypertrophy and moderate mitral regurgitation. 2. Nuclear medicine stress test on 07/05/2018, which shows no evidence of reversible ischemia, EF of 35%. 3. Placement of single chamber ICD for sustained ventricular tachycardia on 07/08/[address] Janina Armendariz. 4. Cardiac catheterization, which showed persistent coronary artery disease with graft done by Dr. Yahaira krueger. He had 2/5 graft with occlusion. HISTORY OF PRESENTING ILLNESS: Ms. Waterman is a pleasant 78-year-old male with known history of coron marjan artery disease status post CABG in 1994 as well as history of chronic atrial fibrillation, histor y of DVT, diabetes, and dyslipidemia, who presented to the emergency room for complaints of altered m ental status, profuse sweating and incoherence and possibly chest pain. Upon EMS arrival, his finger stick glucose was 44. He was given IV dextrose and was brought to the emergency room. In the ER, ravin carter EKG showed rate controlled atrial fibrillation with frequent PVCs. WBCs of 4.8, platelet count of 109, 63% neutrophils. INR 1.8. ABG showed pH of 7.27, pCO2 of 72, pO2 of 76. BNP 208, troponin 0.0 5 with CK-MB of 4.8. Chest x-ray showed pulmonary vascular congestion. Head CT did not show any acu te intracranial abnormality. He was found to be in acute hypoxic and hypercarbic respiratory failure and started on CPAP/BiPAP. There was possibility of acute COPD and CHF exacerbation as well. Echoc ardiogram was ordered. Lasix was ordered and he was started on empiric Levaquin and IV steroids as w ell. Pulmonary Medicine and Cardiology was consulted. Please see admission history and physical for further details. HOSPITAL COURSE: He was initially admitted to [facility] on BiPAP, which was quickly tapered off. His ant ibiotics and steroids were eventually changed to oral as well. Pulmonary Medicine followed the patie nt along. He was instructed to follow up outpatient eventually with polysomnographic and to treat ravin carter known sleep apnea. With regards to his fluid overload, Cardiology, Dr. Saravia saw the patient and he underwent echocar diogram. Echo showed EF low at 35% to 40%, which prompted a stress test which was negative. He did undergo repeat catheterization which showed 3/5 graft patent. He did sustain some sustained ventricular tachycardia while in the hospital and Electrophysiology was consulted. Dr. Carter saw the patient on 07/04/2018. The patient was completely asymptomatic with th is episode. With a new found systolic heart failure and nonsustained ventricular tachycardia, it was recommended that he underwent an ICD placement. This was done yesterday after withholding warfarin. The patient tolerated the procedure very well. As of this morning, he is back to his baseline and has been cleared by Cardiology, Pulmonary Medicine and Electrophysiology for discharge home. He was started on Entresto in the hospital and first dose would be tonight. He will be given samples of Entresto by Cardiology, Dr. Saravia. With regards to his hypoglycemia, it was discussed extensively about the need for reducing the Lantus dose, but the patient was very adamant, not to change it. He keeps a meticulous record of his blood sugar over the past several years and reports that he is more than capable of taking care of it. On ce again, he has been referred to his primary care physician, Karol Gagnon, nurse practitioner, f or followup. He was seen and examined prior to discharge. PHYSICAL EXAMINATION: VITAL SIGNS: This morning, temperature 97.6, pulse of 50, respirations 16, saturating 95% on room ai r, blood pressure 145/63. GENERAL: No acute distress. CHEST: Clear to auscultation bilaterally. CARDIOVASCULAR: Rate and rhythm is regular. Pacemaker site with some bruising without any evidence of infection or hematoma formation. Blood culture negative x2 in 5 days. DISCHARGE FOLLOWUP: 1. Cardiology, Dr. Saravia on 07/18/2018 at 10:[address] aCrter in 2-3 weeks. 3. Primary care physician in 7 days. 4. Pulmonary medicine, Dr. Sheldon Haji in 1-2 weeks and outpatient cardiac rehabilitation in [facility]. Discharge INR is 1.2. Coumadin was restarted last night. He is instructed to follow up with [facility] t PT and INR checks in [place] with results to nurse practitioner, Ms. Gagnon, instead of faxing the m over in [place] to his field service rep. Total time spent in the discharge of this patient 35 minutes.
== END 2018-07-09 15:18 | disposition home or self-care (01) | DRG 222 ==
LOC: ERS 04:42 → IMCU/EMU 06:30 → 2NO 07-04 09:58
PROVIDERS: ADMIT Hospitalist; ATTEND Hospitalist
PROC: 4A023N7 Measurement of Cardiac Sampling and Pressure, Left Heart, Percutaneous Approach (ICD-10-PCS; 2018-07-06)
PROC: B2111ZZ Fluoroscopy of Multiple Coronary Arteries using Low Osmolar Contrast (ICD-10-PCS; 2018-07-06)
PROC: B2151ZZ Fluoroscopy of Left Heart using Low Osmolar Contrast (ICD-10-PCS; 2018-07-06)
PROC: 0JH608Z Insertion of Defibrillator Generator into Chest Subcutaneous Tissue and Fascia, Open Approach (ICD-10-PCS; principal; 2018-07-08)
PROC: 02HL3KZ Insertion of Defibrillator Lead into Left Ventricle, Percutaneous Approach (ICD-10-PCS; 2018-07-08)
DX: I11.0 Hypertensive heart disease with heart failure (principal); J96.01 Acute respiratory failure with hypoxia; J96.02 Acute respiratory failure with hypercapnia; J44.1 Chronic obstructive pulmonary disease with (acute) exacerbation; I24.8 Other forms of acute ischemic heart disease; E66.2 Morbid (severe) obesity with alveolar hypoventilation; I47.2 Ventricular tachycardia; I50.43 Acute on chronic combined systolic (congestive) and diastolic (congestive) heart failure; Z68.35 Body mass index [BMI] 35.0-35.9, adult; I25.10 Atherosclerotic heart disease of native coronary artery without angina pectoris; Z95.1 Presence of aortocoronary bypass graft; I48.2 Chronic atrial fibrillation; E11.65 Type 2 diabetes mellitus with hyperglycemia; T68.XXXA Hypothermia, initial encounter; Z86.718 Personal history of other venous thrombosis and embolism; Z79.4 Long term (current) use of insulin; Z85.828 Personal history of other malignant neoplasm of skin; K21.9 Gastro-esophageal reflux disease without esophagitis; E78.5 Hyperlipidemia, unspecified; Z79.84 Long term (current) use of oral hypoglycemic drugs; Z79.01 Long term (current) use of anticoagulants; Z87.891 Personal history of nicotine dependence; Z91.19 Patient's noncompliance with other medical treatment and regimen; J20.9 Acute bronchitis, unspecified; Z79.899 Other long term (current) drug therapy
CPT/HCPCS: 33249; 36005; 36415; 36416; 70450; 71045; 75820; 78452; 80048; 80053; 81003; 82553; 82805; 83605; 83735; 83880; 84484; 85025; 85610; 85730; 87040; 90471; 90662; 93005; 93010; 93017; 93306; 93459; 93798; 94640; 96365; 96366; 96367; 96375; 99152; A4216; A9500; C1722; C1769; C1777; G0008; G8978-GP-CJ; G8979-GP-CJ; G8980-GP-CJ; G8987-GO-CI; G8988-GO-CI; G8989-GO-CI; J0461; J0690; J1160; J1580; J1644; J1650; J1940; J1956; J2001; J2250; J2543; J2785; J2920; J7506; J7614; J7620

== ENCOUNTER 2018-07-18 09:41 | Inpatient (IN) | payer MEDICARE, BC ==
[2018-07-18 10:41] LABS: ALT (SGPT) 34 U/L (8-55); AST (SGOT) 39 U/L (5-34); Albumin 4.1 g/dL (3.4-4.8); Alkaline Phosphatase 49 U/L (40-150); Anion Gap 17 mmol/L (10-20); BUN (Urea Nitrogen) 74 mg/dL (8.4-25.7); Bilirubin, Total 0.9 mg/dL (0.2-1.2); Calc. Creatinine Clearance 0 mL/min (70-130); Calcium 10.4 mg/dL (7.8-10.44); Carbon Dioxide 26 mmol/L (23-31); Chloride 102 mmol/L (98-107); Estimated GFR-MDRD 33; Globulin 3.3 g/dL (2.4-3.5); Glucose 186 mg/dL (83-110); Potassium 5.7 mmol/L (3.5-5.1); Protein, Total 7.4 g/dL (5.8-8.1); Sodium 139 mmol/L (136-145)
[2018-07-18 10:51] LABS: CKMB 8.8 ng/mL (0-6.6); Troponin I 0.302 ng/mL (< 0.028)
[2018-07-18 10:58] LABS: #Basophils 0.1 thou/uL (0.0-0.2); #Eosinphils 0.1 thou/uL (0.0-0.7); #Lymphocytes 1.5 thou/uL (1.20-3.40); #Monocytes 0.4 thou/uL (0.11-0.59); #Neutrophils 4.6 thou/uL (1.40-6.50); %Eosinophils 1.1 % (0.0-10.0); %Monocytes 6.5 % (0.0-10.0); %Neutrophils 69.4 % (42.0-75.0); Hemoglobin 16.5 g/dL (14.0-18.0); Mean Corpuscular HGB CONC 32.1 g/dL (32.0-36.0); Mean Corpuscular Hemoglobin 28.9 pg (27.0-31.0); Mean Corpuscular Volume 90.1 fL (78.0-98.0); Mean Platelet Volume 9.8 fL (7.4-10.4); PLT Morphology Comment Appears Adequate; Platelet Count 101 thou/uL (130-400); RBC Distribution Width 14.9 % (11.5-14.5); RBC Morphology Normal; Red Blood Cell (RBC) Count 5.72 mill/uL (4.70-6.10); White Blood Cell (WBC) Count 6.6 thou/uL (4.8-10.8)
--- NOTE | 2018-07-18 11:24 | RAD ---
UPRIGHT PORTABLE CHEST 1 VIEW: Date: 07/18/18 HISTORY: 78-year-old male with respiratory distress. COMPARISON: 07/08/18. FINDINGS: Marked cardiomegaly. Postop midline sternotomy and left ICD changes. No confluent pneumonia, overt ed guillermina, or other acute process. IMPRESSION: Marked cardiomegaly. Overall stable from prior study. No significant new process. POS: [facility]
[2018-07-18] MEDS ORDERED: Amiodarone HCl 450 MG, Admixture Fee 1 EACH in Dextrose 5% in Water 250 ML IVPB SCH ×2 (14:30→17:30)
--- NOTE | 2018-07-18 15:27 | HP ---
DATE OF ADMISSION: 07/18/2018 PRIMARY CARE PHYSICIAN: [facility] call admission. REASON FOR ADMISSION: Ventricular tachycardia and elevated troponin. HISTORY OF PRESENT ILLNESS: An 78-year-old male who was recently admitted in our hospital on 07/02/2018. During that admission, the patient was admitted to [facility] for acute respiratory failure with hypoxia and hypercapnia. During that admission, the patient had elevated troponin and he had a cardiac catheterization done on 07/02/2018, which showed three affiliated coronary artery disease and one out of four grafts were patent. The patient also had ventricular tachycardia, required amiodarone drip and subsequently the patient required AICD placement. Echocardiography during that admission showed EF 30%-40%. This patient has underlying history of sleep apnea and he is not using his CPAP machine. During that admission, the patient was treated with diuretic therapy. The patient reports that after discharge on 07/09/2018, he felt very well for 2-3 days at home. Subsequently, he was not able to sleep during nighttime and he was sleeping during daytime. He was lethargic during daytime. He was having intermittent burping symptoms for a long period of time, but yesterday when he ate spicy food, since then he had very bad day. He was burping the entire day constantly. Last night at 3:00 a.m., again he started burping and he was feeling shortness of breath. He did not have any chest pain. He did not notice any AICD firing. He was not feeling any palpitation, dizziness or syncope at home. Today, he mainly came to emergency room for burping and hiccup, which was bothering him and that is why he decided to come to the ER and he is found with acute kidney injury, elevated troponin, hyperkalemia, elevated BNP. When he was in the emergency room, he had a sustained ventricular tachycardia with rate 160 and above for almost 4 minutes and it was self terminated without any AICD firing. The patient does report that his weight is stable. He does not have any weight gain. He chronically feels orthopnea and he does not sleep on his back because of his back pain. He denies any fever or chills. He denies any constipation, diarrhea, melena or hematochezia. PAST MEDICAL HISTORY: Chronic atrial fibrillation, coronary artery disease, history of coronary artery bypass grafting, chronic systolic and diastolic heart failure, diabetes type 2, hypertension, history of deep venous thrombosis , chronic anticoagulation with warfarin, gastroesophageal reflux disease, morbid obesity, osteoarthritis, chronic low back pain, dyslipidemia, history of ventricular tachycardia, history of recent AICD placement. PAST SURGICAL HISTORY: CABG x5 in 1994, skin cancer excision, AICD placement on 07/08/2018. PAST PSYCHIATRIC HISTORY: Reviewed and negative. ALLERGIES: No known drug allergy. CURRENT HOME MEDICATIONS: Lipitor 40 mg p.o. daily, Coreg 25 mg p.o. b.i.d., TriCor 48 mg p.o. daily, Lasix 40 mg p.o. daily, Humalog insulin as per sliding scale, Lantus 16 at bedtime, metformin 500 mg p.o. daily, warfarin 5 mg p.o. daily, aspirin 162 mg p.o. daily, Keflex he finished for 7 days recently, DuoNeb q.i.d. p.r.n., potassium chloride 20 mEq p.o. daily, Entresto 1 tablet twice daily. FAMILY HISTORY: Mother of dementia in her old age. Father had massive AR by age of 62. SOCIAL HISTORY: Patient is , no smoking, no alcohol or drug abuse. CODE STATUS: Full code. The patient's is surrogate decision maker. REVIEW OF SYSTEMS: The following complete review of systems was negative, unless otherwise mentioned in the HPI or below: Constitutional: Weight loss or gain, ability to conduct usual activities. Skin: Rash, itching. Eyes: Double vision, pain. ENT/Mouth: Nose bleeding, neck stiffness, pain, tenderness. Cardiovascular: Palpitations, dyspnea on exertion, orthopnea. Respiratory: Shortness of breath, wheezing, cough, hemoptysis, fever or night sweats. Gastrointestinal: Poor appetite, abdominal pain, heartburn, nausea, vomiting, constipation, or diarrhea. Genitourinary: Urgency, frequency, dysuria, nocturia. Musculoskeletal: Pain, swelling. Neurologic/Psychiatric: Anxiety, depression. Allergy/Immunologic: Skin rash, bleeding tendency. Please see my HPI for pertinent positive and negative. All other review of systems reviewed and negative except as mentioned in the HPI. EMERGENCY ROOM COURSE: The patient is given aspirin and we are giving him amiodarone drip. PHYSICAL EXAMINATION: VITAL SIGNS: On arrival, blood pressure 134/69, pulse 80, respiratory rate 17, temperature 97.7, saturation 98% on room air, weight 108.9 kg. GENERAL: The patient is currently alert, awake, in no obvious acute distress. HEAD: Normocephalic, atraumatic. EYES: Pupils round and reactive to light. Extraocular muscle intact. ENT: Oropharynx within normal limits. Moist mucous membrane. No oral lesion, no pharyngeal erythema, no exudate. NECK: Supple. No JVD, no thyromegaly, no carotid bruit. LUNGS: Few basal rales noted. AICD site is clean and healthy. No wheezing, no rhonchi, no accessory muscles of respiration in use. CARDIAC: S1, S2 irregularly irregular. Systolic murmur present at apex. No gallop, no rub. ABDOMEN: Obesity present. Bowel sounds present, nontender, nondistended. No organomegaly, no mass, no suprapubic tenderness. BACK: Unremarkable. No CVA tenderness. EXTREMITIES: Upper extremities, passive movement of all joints are normal. Lower extremities, bilateral lower extremity pitting edema noted with chronic skin changes. SKIN: Chronic venous insufficiency noted in the lower extremities. PSYCHIATRIC: Normal affect. NEUROLOGIC: Nonfocal examination. SIGNIFICANT LABORATORY DATA: EKG showing atrial fibrillation with controlled ventricular response, incomplete left bundle branch block. Chest x-ray, cardiomegaly without any acute process. CBC, WBC of 6.6, hemoglobin 16.5, platelet of 101,000. BMP, sodium 139, potassium 5.7, chloride 102, carbon dioxide 26, anion gap 17, BUN 74, creatinine 1.94, glucose 186, calcium 10.4. LFT, AST 39, ALT 34, alkaline phosphatase 49, albumin 4.1. CK-MB 8.8. Troponin I 0.302. BNP 265.1. ASSESSMENT AND PLAN: 1. Recurrent ventricular tachycardia, most likely precipitated by underlying structural heart disease with cardiomyopathy, sustained ventricular tachycardia witnessed in the emergency room. Surprisingly, he did not have any AICD firing. At this point, the patient is suspected for recurrent ventricular tachycardia and that is why we will interrogate his defibrillator. Travel Sales Consultant, Dr. Carter was notified about this patient's admission and he will be consulted for medication adjustment. At this point, I will just keep in IMCU and will start amiodarone drip per protocol. Second etiology for his recurrent ventricular tachycardia could be from his noncompliance with CPAP machine for sleep apnea. Underlying ischemic etiology is possible, but the patient already had cardiac catheterization done recently, which showed only one out of four grafts were blocked. The patient has elevated troponin and that is why we will trend troponin as well and Cardiology will be consulted. 2. Acute kidney failure. The patient's creatinine was 1.07 on discharge on 06/2018 and today is 1.94. We will hold on Lasix therapy. We will continue Entresto. We will monitor renal function. 3. Hyperkalemia, likely iatrogenic from potassium supplementation in presence of Entresto. We will discontinue potassium supplementation and we will repeat BMP tomorrow. 4. Non-ST elevation myocardial infarction, type 2. Most likely, this is demand ischemia from ventricular tachycardia. He does not have any real chest pain. Unsure the patient burping episode is related with angina equivalent, but we will trend troponin. He already had cardiac catheterization done recently. Cardiology group will be consulted. 5. Sleep apnea, noncompliance with CPAP machine. Pulmonary group will be consulted in the medical ICU. He will benefit from CPAP machine during nighttime. He will need outpatient sleep study done to get another CPAP machine. 6. Chronic systolic and diastolic heart failure. The patient already had echocardiography recently. The patient currently appears to be euvolemic. We will continue Entresto and Coreg 25 mg twice daily. 7. Diabetes type 2. We will continue Lantus 16 at bedtime and Humalog insulin as per sliding scale. We will hold on metformin because of renal failure. 8. Dyslipidemia. Continue Lipitor 40 mg p.o. at bedtime and TriCor 48 mg p.o. daily. 9. Chronic atrial fibrillation, currently rate controlled. Continue Coreg and amiodarone drip along with warfarin 5 mg p.o. daily. We will monitor PT/INR while in hospital. 10. Deep venous thrombosis prophylaxis. The patient is already on warfarin therapy. We will monitor PT/INR daily. 11. Gastrointestinal prophylaxis, Protonix 40 mg p.o. daily. CODE STATUS: The patient is full code. The patient's is surrogate decision maker. Disposition plan based on clinical course. We are expecting the patient's stay in hospital more than 2 midnights. During this admission, the patient will need setting of AICD as well as medication adjustment. Plan of care discussed with the patient's family member at bedside in the emergency room. MTDD
[2018-07-18 15:35] LABS: Troponin I 0.798 ng/mL (< 0.028)
[2018-07-18] MEDS ORDERED: Amiodarone In Dextrose 200 ML IVPB SCH (17:07)
[2018-07-18] MEDS ORDERED: Diabetic Tussin 200 MG/10 ML UDCUP PO PRN (17:07)
[2018-07-18] MEDS ORDERED: Eucerin (Mineral Oil/Petrolatum,White) 30 gm Jar TOP PRN (17:07)
[2018-07-18] MEDS ORDERED: Metoclopramide HCl 10 MG/2 ML VIAL IVP PRN (17:07)
[2018-07-18] MEDS ORDERED: Nitroglycerin 0.4 MG TAB (25 Tab Bottle) SL PRN (17:07)
[2018-07-18] MEDS ORDERED: Bisacodyl 5 MG TAB PO PRN (17:07)
[2018-07-18] MEDS ORDERED: Loperamide HCl 2 MG CAP PO PRN ×2 (17:07)
[2018-07-18] MEDS ORDERED: Dextrose 5% in Water 1,000 ML IV PRN (17:07)
[2018-07-18] MEDS ORDERED: Artificial Tears 18 DROP/0.9 ML EA EYE PRN (17:07)
[2018-07-18] MEDS ORDERED: Cepastat Lozenges 1 LOZ PO PRN (17:07)
[2018-07-18] MEDS ORDERED: Dextrose 50% Abboject 50 ML SYRINGE SLOW IVP PRN (17:07)
[2018-07-18] MEDS ORDERED: HumaLOG 300 UNITS/3 ML VIAL SC PRN ×2 (17:07)
[2018-07-18] MEDS ORDERED: Sodium Chloride 0.65% Nasal 44 ML BOT EA NARE PRN (17:07)
[2018-07-18] MEDS ORDERED: Labetalol HCl 100 MG/20 ML VIAL SLOW IVP PRN (17:07)
[2018-07-18] MEDS ORDERED: Acetaminophen 325 MG TAB PO PRN (17:07)
[2018-07-18] MEDS ORDERED: Senokot S 8.6-50 MG TAB PO PRN (17:07)
[2018-07-18 17:26] LABS: Troponin I 0.843 ng/mL (< 0.028)
[2018-07-18 18:05] LABS: INR-International Normal Ratio 1.6; Prothrombin Time 19.4 SEC (12.0-14.7)
[2018-07-18] MEDS ORDERED: Warfarin Sodium 5 MG TAB PO SCH (18:30)
[2018-07-18] MEDS: Carvedilol 25 MG TAB PO SCH (18:39)
--- NOTE | 2018-07-18 21:31 | PRG ---
DATE OF SERVICE: 07/18/2018 CARDIOLOGY FOLLOWUP PRIMARY HUMAN PERFORMANCE PROFESSOR: Dr. Javier Saravia. SUBJECTIVE: Mr. Waterman was readmitted to the hospital today with recurrent ventricular tachycardia. He has been on amiodarone and is resting comfortably now. He has been seen by Dr. Carter today. PHYSICAL EXAMINATION: VITAL SIGNS: Blood pressure 143/66, pulse 61. LUNGS: Clear. CARDIAC: Normal S1, normal S2. ABDOMEN: Soft, nontender. EXTREMITIES: No edema. ASSESSMENT: 1. Ventricular tachycardia. 2. Recent defibrillator implantation. PLAN: 1. He is now on intravenous amiodarone. 2. Defibrillator was implanted. 3. Dr. Carter is seeing the patient as well. 4. Dr. Saravia to see the patient tomorrow.
[2018-07-18] MEDS: Atorvastatin Calcium 40 MG TAB PO SCH (21:43)
[2018-07-18] MEDS: Insulin Glargine 60 UNITS in Pre-Filled Syringe 1 EACH SC SCH (21:43)
[2018-07-18] MEDS: Sacubitril 24.5 MG/Valsartan 25.5 MG TABLET PO SCH (21:53)
--- NOTE | 2018-07-19 00:36 | CON ---
DATE OF CONSULTATION: 07/18/2018 SERVICE: Pulmonary Medicine. REASON FOR CONSULTATION: CU patient. HISTORY OF PRESENT ILLNESS: The patient was recently in the hospital. He was diagnosed with a ventricular tachycardia arrest and underwent placement of an AICD. He was also volume overloaded, had some shortness of breath associated with that. We diuresed him. Ultimately, his breathing improved significantly. This morning at 3:00 in the morning, he woke up with a hiccup spell. Apparently it was quite severe and dramatic. It resolved after a period of about 10-15 minutes, but then recurred later on. He was brought into the emergency department at the [facility]. He did not have any chest pain or shortness of breath noted, but these burping spells were of concern. In the emergency room, he was being monitored on telemetry when he had a sustained ventricular tachycardia with a rate of 160 over 4 minutes. It was self- terminated. The AICD did not fire. Ultimately, they wanted to put him in the hospital for observation. He denies any current fevers, chills, nausea or vomiting. Otherwise, he is in his usual state of health. PAST MEDICAL HISTORY: 1. Atrial fibrillation, chronic. 2. Coronary artery disease. 3. Chronic systolic and diastolic heart failure, currently euvolemic. 4. Type 2 diabetes mellitus. 5. Hypertension. 6. Dyslipidemia. 7. History of DVT. 8. Gastroesophageal reflux disease. 9. Morbid obesity. 10. Chronic low back pain. 11. Osteoarthritis. 12. History of ventricular tachycardia. PAST SURGICAL HISTORY: 1. Coronary artery bypass graft. 2. AICD placement. ALLERGIES: No known drug allergies. MEDICATIONS: List of his inpatient medications were reviewed. No specific updates were made at this time. FAMILY HISTORY: Noncontributory. SOCIAL HISTORY: He has a greater than [id number] history of smoking. He quit over 10 years ago. Denies any alcohol or illicit drugs. He lives with his . They have been for almost 59 years. He has no exposure to chemicals, dust asbestos or tuberculosis. REVIEW OF SYSTEMS: General, head, ears, eyes, nose, throat, cardiovascular, respiratory, GI, , musculoskeletal, neurologic and skin is negative except as mentioned in the HPI. PHYSICAL EXAMINATION: VITAL SIGNS: Afebrile, pulse 61, blood pressure 143/66, respirations 20, saturation 98% on 2 liters nasal cannula. GENERAL: The patient is awake, alert, in no apparent distress. LUNGS: Reduced air entry. Slightly prolonged expiratory phase is present. There are no dependent crackles, wheezing or rhonchi present. HEART: Normal rate, regular. ABDOMEN: Soft, nontender, nondistended. Bowel sounds are positive. MUSCULOSKELETAL: No cyanosis or clubbing. There is trace pitting in the bilateral lower extremities. NEUROLOGIC: Grossly nonfocal. LABORATORY DATA: CBC is grossly unremarkable. INR 1.6, creatinine 1.94 (above baseline of 1.3), liver function studies are unremarkable. Troponin is up trending to 0.84. IMAGING: Chest x-ray demonstrates marked cardiomegaly. Otherwise, there is no overt pulmonary edema or effusions identified. Left ICD remain in place. ASSESSMENT: 1. Sustained ventricular tachycardia. 2. Acute kidney injury. 3. Non-ST elevation myocardial infarction. 4. Obstructive sleep apnea, not able to tolerate CPAP therapy. 5. Chronic systolic and diastolic heart failure, currently hypovolemic. DISCUSSION AND PLAN: We will wean oxygen away as tolerated. He will remain in the IMCU for close observation overnight. Apparently the [employer] individual just dropped his rate at which his AICD will fire. He is on amiodarone. Otherwise, there has been no interval change. He will be watched very closely in this setting for 24 hours, but hopefully will be a candidate for transition home or to the floor in the morning. 70 minutes have been devoted to this patient in various activities. I personally reviewed all imaging studies and laboratory data noted within this document. For fifty percent of this time, I was interacting with the patient at the bedside or coordinating care with the care team. For the remainder of the time I was immediately available to the patient in the hospital unit. ENE
[2018-07-19 03:57] LABS: #Basophils 0.1 thou/uL (0.0-0.2); #Eosinphils 0.1 thou/uL (0.0-0.7); #Lymphocytes 2.1 thou/uL (1.20-3.40); #Monocytes 0.6 thou/uL (0.11-0.59); #Neutrophils 3.1 thou/uL (1.40-6.50); %Basophils 1.5 % (0.0-1.0); %Eosinophils 2.3 % (0.0-10.0); %Lymphocytes 34.3 % (21.0-51.0); %Monocytes 10.1 % (0.0-10.0); %Neutrophils 51.7 % (42.0-75.0); Hemoglobin 15.6 g/dL (14.0-18.0); Mean Corpuscular HGB CONC 32.1 g/dL (32.0-36.0); Mean Corpuscular Hemoglobin 28.8 pg (27.0-31.0); Mean Corpuscular Volume 89.7 fL (78.0-98.0); Mean Platelet Volume 9.5 fL (7.4-10.4); Platelet Count 101 thou/uL (130-400); RBC Distribution Width 14.8 % (11.5-14.5); Red Blood Cell (RBC) Count 5.42 mill/uL (4.70-6.10)
[2018-07-19 04:00] LABS: INR-International Normal Ratio 1.8; Prothrombin Time 21.1 SEC (12.0-14.7)
[2018-07-19 04:13] LABS: Anion Gap 14 mmol/L (10-20); BUN (Urea Nitrogen) 50 mg/dL (8.4-25.7); Calc. Creatinine Clearance 52 mL/min (70-130); Calcium 9.9 mg/dL (7.8-10.44); Carbon Dioxide 29 mmol/L (23-31); Chloride 100 mmol/L (98-107); Estimated GFR-MDRD 38; Glucose 119 mg/dL (83-110); Potassium 4.8 mmol/L (3.5-5.1); Sodium 138 mmol/L (136-145); Uric Acid 10.2 mg/dL (3.5-7.2)
[2018-07-19 05:40] VITALS: BMI 33.2
--- NOTE | 2018-07-19 08:57 | CON ---
ELECTROPHYSIOLOGY CONSULTATION REPORT DATE OF CONSULTATION: 07/18/2018 REFERRING PHYSICIAN: Leonel Douglas I am seeing Mr. Waterman at our [facility] step-down ICU as an electrophysiology cassandra consultant. His problems are: 1. Recurrent ventricular tachycardia. A. Current presentation with slow ventricular tachycardia at 170 beats per minute below ICD cutoff n ot receiving therapy. B. Prior history of ventricular tachycardia in beginning of July with sustained ventricular tachy cardia while on telemetry floor. C. Status post single chamber ICD implantation on 07/08/2018. 2. Chronic atrial fibrillation with controlled ventricular rates. 3. Chronic systolic congestive heart failure with reduced LVEF at 30-40%. A. Prior history of myocardial infarction in 1996 with subsequent 5-vessel bypass. B. Left heart catheterization on 07/02/2018 shows LVEF of 25%, severe [place] coronary artery disease, patent SVGs to obtuse marginal 1 and distal RCA, patent LOPEZ to LAD, occluded graft to obtuse margin al 2. 4. Hypoglycemia in the setting of type 2 diabetes on insulin therapy. 5. Elevated BMI. 6. Acute renal insufficiency, creatinine 1.97. 7. History of sleep apnea with poor compliance with CPAP machine. ALLERGIES: None noted. MEDICATIONS: Lipitor, Coreg 25 twice a day, TriCor, Lasix, Humalog, Lantus at bedtime, metformin, wa rfarin, aspirin, Keflex, DuoNeb, potassium chloride, Entresto. SUBJECTIVE: Mr. Waterman is here after developing a slight altered mental status, diaphoresis, and he was found to be in recurrent ventricular tachycardia. His ICD was interrogated remotely and revealed cutoff ventricular tachycardia which did not receive therapy in accordance with the programming. On e episode of ventricular tachycardia, though is promptly pace terminated. The telemetry subsequently revealed sustained episodes of ventricular arrhythmias. He was started on amiodarone and currently is suppressing the ventricular tachycardia episodes. At this time, the patient is feeling fine. No PND or orthopnea. No chest pain, no fever, chills, or cough. No stroke-like symptoms. His prior belching sensations resolved. Rest of 12-point system o therwise unremarkable. PAST MEDICAL HISTORY: As above. Again, refer to my prior note as well from July 04, 2018. SOCIAL HISTORY: The patient denies smoking, ETOH, or drug abuse. Quit smoking 10 years ago after 40 -pack-year history. Denies drug use. FAMILY HISTORY: Noncontributory. OBJECTIVE: VITAL SIGNS: Blood pressure is 123/66, heart rate 61, respiratory rate 20, temperature 98.1 degrees Fahrenheit. GENERAL: He is alert and oriented man, in no apparent distress. NECK: Supple. No jugular venous distention. CHEST: Coarse without crackles. CARDIAC: Heart sounds are irregularly irregular. S1, S2, variable. Left precordial ICD insertion s ite is well healed. Midsternal scar is also healed. ABDOMEN: Benign. Bowel sounds positive. EXTREMITIES: Lower extremities without edema, clubbing, or cyanosis. Pulses are adequate. NEUROLOGIC: Patient nonfocal. MUSCULOSKELETAL: No joint swelling or deformities. SKIN: Without rash. DATABASE: The EKG is reviewed revealing atrial fibrillation with occasional PVCs, which are monomorp hic, right bundle inferior axis in morphology. The QRS duration [place] conducted beats are 120 alexander seconds. Subsequent telemetry strips reveal runs of wide complex tachycardia at 170 beats per minute , baseline morphology. ICD interrogation was reviewed revealing frequent episodes of ventricul ar tachycardia below the VT2 zone cutoff at 170 beats per minute. An episode of VT at 176 beats per minute was promptly pace terminated. LABORATORY DATA: White blood cell count 6.6, hemoglobin 16.5, platelet count is 101. Sodium 139, po tassium 5.7, BUN is 74, creatinine is 1.94. The troponin I is 0.798 and 0.843. BNP is 265. The chest x-ray shows mild cardiomegaly, no signific ant new process. ASSESSMENT AND PLAN: Mr. Waterman is a pleasant 78-year-old man with history of congestive heart failu re, likely ischemic cardiomyopathy, remote bypass surgery, stable coronary artery disease status on t he most recent heart catheterization. He did have recurrent ventricular tachycardia at this time, wh ich happened to be below the cutoff of ICD treatment zone. My plan is at this point, 1. Initiate amiodarone therapy and we will continue monitoring telemetry. Also monitor EKGs for QT prolongation. 2. Likely switching him from IV to p.o. amiodarone tomorrow. 3. We will program the ICD to accommodate for slower ventricular tachycardia episode at 145 beats pe r minute. Anticipating further slowing of the ventricular tachycardia if it recurs while on amiodaro ne. 4. Elevated troponins, but with stable coronary status as a prior cardioversion cassandra consultant. 5. Recent single chamber ICD implant. Otherwise, adequate function. Reprogramming as above. 6. Chronic atrial fibrillation, currently controlled ventricular rates. We will continue anticoagul ation with warfarin. We will follow with you.
[2018-07-19] MEDS: Carvedilol 25 MG TAB PO SCH (09:39)
[2018-07-19] MEDS: Fenofibrate 48 MG TAB PO SCH (09:39)
[2018-07-19] MEDS: Sacubitril 24.5 MG/Valsartan 25.5 MG TABLET PO SCH ×2 (09:39→20:30)
--- NOTE | 2018-07-19 10:37 | PDOC.PN ---
- Subjective Encounter Start Date: 07/19/18 Encounter Start Time: 09:45 -: old records requested/rev Patient seen and examined. No new complaints. No overnight events - Objective Resuscitation Status: Resuscitation Status FULL:Full Resuscitation MAR Reviewed: Yes Vital Signs & Weight: Vital Signs (12 hours) Temp Pulse Resp BP BP Pulse Ox 07/19/18 08:00 98 07/19/18 07:44 97.5 F L 104 H 16 118/55 L 98 07/19/18 03:51 98.5 F 54 L 20 151/52 H 98 07/19/18 02:39 56 L 20 97 07/19/18 00:30 100 07/18/18 23:56 96.6 F L 56 L 18 129/66 100 Weight Weight 238 lb I&O: 07/18/18 07/19/18 07/20/18 06:59 06:59 06:59 Intake Total 363 Output Total 300 Balance 63 Result Diagrams: 07/19/18 03:43 07/19/18 03:42 Additional Labs: Accuchecks 07/19/18 07/18/18 07/18/18 05:57 20:48 16:34 POC Glucose 110 134 H 137 H 07/18/18 14:55 POC Glucose 163 H EKG Reviewed by me: Yes (afib) Phys Exam - Physical Examination Constitutional: NAD HEENT: PERRLA, moist MMs, sclera anicteric Neck: no JVD, supple Respiratory: no wheezing, no rales, no rhonchi Cardiovascular: no significant murmur, irregular Gastrointestinal: soft, non-tender, no distention, positive bowel sounds Musculoskeletal: pulses present, edema present Neurological: non-focal, normal sensation, moves all 4 limbs Lymphatic: no nodes Psychiatric: normal affect, A&O x 3 Skin: no rash, normal turgor Dx/Plan (1) Acute kidney failure Status: Acute Comment: improving (2) Demand ischemia of myocardium Code(s): I24.8 - OTHER FORMS OF ACUTE ISCHEMIC HEART DISEASE Status: Acute (3) Hyperkalemia Code(s): E87.5 - HYPERKALEMIA Status: Resolved (4) Thrombocytopenia Code(s): D69.6 - THROMBOCYTOPENIA, UNSPECIFIED Status: Acute (5) Ventricular tachycardia Code(s): I47.2 - VENTRICULAR TACHYCARDIA Status: Acute Comment: on amiodaron drip (6) Afib Code(s): I48.91 - UNSPECIFIED ATRIAL FIBRILLATION Status: Chronic Qualifiers: Atrial fibrillation type: chronic (7) COPD (chronic obstructive pulmonary disease) Status: Chronic (8) Chronic anticoagulation Code(s): Z79.01 - LEAD CASE MANAGER (CURRENT) USE OF ANTICOAGULANTS Status: Chronic (9) Chronic combined systolic and diastolic CHF, 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 Code(s): I50.42 - CHRONIC COMBINED SYSTOLIC AND DIASTOLIC HRT FAIL Status: Chronic (10) DM type 2 (diabetes mellitus, type 2) Status: Chronic Qualifiers: (11) Dyslipidemia Code(s): E78.5 - HYPERLIPIDEMIA, UNSPECIFIED Status: Chronic (12) HTN (hypertension) Code(s): I10 - ESSENTIAL (PRIMARY) HYPERTENSION Status: Chronic Qualifiers: (13) LEON (obstructive sleep apnea) Code(s): G47.33 - OBSTRUCTIVE SLEEP APNEA (ADULT) (PEDIATRIC) Status: Chronic Comment: (14) Obesity (BMI 30-39.9) Code(s): E66.9 - OBESITY, UNSPECIFIED Status: Chronic - Plan cont current plan of care * continue amiodaron drip as per protocol * continue tele monitoring * transfer to tele as per cardiology * medication reviewed as below * symptomatic treatment * cpap during night. Review of Systems - Review of Systems ENT: negative: Ear Pain, Ear Discharge, Nose Pain, Nose Discharge, Nose Congestion, Mouth Pain, Mouth Swelling, Throat Pain, Throat Swelling, Other Respiratory: negative: Cough, Dry, Shortness of Breath, Hemoptysis, SOB with Excertion, Pleuritic Pain, Sputum, Wheezing Cardiovascular: negative: chest pain, palpitations, orthopnea, paroxysmal nocturnal dyspnea, edema, light headedness, other Gastrointestinal: negative: Nausea, Vomiting, Abdominal Pain, Diarrhea, Constipation, Melena, Hematochezia, Other Genitourinary: negative: Dysuria, Frequency, Incontinence, Hematuria, Retention , Other Musculoskeletal: negative: Neck Pain, Shoulder Pain, Arm Pain, Back Pain, Hand Pain, Leg Pain, Foot Pain, Other Skin: negative: Rash, Lesions, Carlos Alberto, Bruising, Other - Medications/Allergies Allergies/Adverse Reactions: Allergies Allergy/AdvReac Type Severity Reaction Status Date / Time No Known Allergies Allergy Verified 07/02/18 10:12 Medications: Current Medications Acetaminophen (Tylenol) 650 mg PO Q4H PRN PRN Reason: Headache/Fever/Mild Pain (1-3) Artificial Tears (Tears Naturale) 2 drop EA EYE PRN PRN PRN Reason: Dry Eyes Aspirin (Aspirin Chewable) 162 mg PO DAILY [facility] Last Admin: 07/19/18 09:38 Dose: 162 mg Atorvastatin Calcium (Lipitor) 40 mg PO [facility] Last Admin: 07/18/18 21:43 Dose: 40 mg Bisacodyl (Dulcolax) 10 mg PO DAILYPRN PRN PRN Reason: Constipation Carvedilol (Coreg) 25 mg PO BID-[facility] Last Admin: 07/19/18 09:39 Dose: 25 mg Dextrose/Water (Dextrose 50%) 25 gm SLOW IVP PRN PRN PRN Reason: Hypoglycemia Fenofibrate (Tricor) 48 mg PO DAILY [facility] Last Admin: 07/19/18 09:39 Dose: 48 mg Glucagon (Glucagon) 1 mg IM PRN PRN PRN Reason: Hypoglycemia Guaifenesin (Robitussin Sf) 200 mg PO Q4H PRN PRN Reason: Cough Dextrose/Water (D5w) 1,000 mls @ 0 mls/hr IV .Q0M PRN PRN Reason: Hypoglycemia Insulin Glargine 60 units/ (Miscellaneous Medication) 0.6 mls @ 0 mls/hr SC [facility] Last Admin: 07/18/18 21:43 Dose: 0.6 mls Amiodarone HCl 450 mg/Miscellaneous Medication 1 each/ Dextrose/Water 259 mls @ 0 mls/hr IVPB INF [facility]; Protocol Last Admin: 07/18/18 23:36 Dose: 259 mls Insulin Human Lispro (Humalog) 0 units SC .MODERATE SLIDING SC PRN PRN Reason: Moderate Correctional Scale Insulin Human Lispro (Humalog) 0 units SC .BEDTIME SLIDING SC PRN PRN Reason: Bedtime Correctional Scale Labetalol HCl (Normodyne) 20 mg SLOW IVP Q4H PRN PRN Reason: SBP > 180 and HR >/= 70 Loperamide HCl (Imodium) 4 mg PO ONE PRN PRN Reason: Diarrhea/Loose Stools Stop: 07/20/18 17:08 Loperamide HCl (Imodium) 2 mg PO PRN PRN PRN Reason: Diarrhea/Loose Stools Metoclopramide HCl (Reglan) 10 mg IVP Q6H PRN PRN Reason: Nausea/Vomiting Mineral Oil/White Petrolatum (Eucerin Cream) 0 gm TOP BIDPRN PRN PRN Reason: Dry Skin Nitroglycerin (Nitrostat) 0.4 mg SL Q5MIN PRN PRN Reason: Chest Pain Pantoprazole Sodium (Protonix) 40 mg PO DAILY [facility] Last Admin: 07/19/18 09:38 Dose: 40 mg Sacubitril/Valsartan (Entresto 24.5 Mg-25.5 Mg Tablet) 1 tab PO BID [facility] Last Admin: 07/19/18 09:39 Dose: 1 tab Senna/Docusate Sodium (Senokot S) 2 tab PO BID PRN PRN Reason: Constipation Sodium Chloride (Gr[place]all Nasal [place] 0.65%) 0 ml EA NARE QIDPRN PRN PRN Reason: Nasal Congestion Throat Lozenges (Cepastat Lozenges) 1 carolin PO Q2H PRN PRN Reason: Sore Throat Warfarin Sodium (Coumadin) 5 mg PO 1700 RAJWINDER
--- NOTE | 2018-07-19 13:03 | PQF ---
DATE: 07-19-18 ATTN: DR. ROSA SLADE Please exercise your independent, professional judgment in responding to the clarification form. Clinical indicators are provided on the bottom of this form for your review Please check appropriate box(s): [ x] RI Type 2 from Ventricular Tachycardia [ ] Demand Ischemia from Ventricular Tachycardia [ ] Other diagnosis [ ] Unable to determine In addition, please specify: Present on Admission (POA): [ x ] Yes [ ] No [ ] Unable to determine CLINICAL INDICATORS - SIGNS / SYMPTOMS / LABS H&P: NON- ST ELEVATION MYOCARDIAL INFARCTION, TYPE 2. MOST LIKELY, THIS IS DEMAND ISCHEMIA FROM VENTRICULAR TACHYCARDIA. PN DR. SLADE 07-19-18: ACUTE DEMAND ISCHEMIA TROPONIN: 07-18-18: 0.302 0.798 0.843 RISKS: ER: SOB, PACEMAKER 10 DAYS AGO, CABG, GERD, DM 2, HLD, A FIB, FORMER SMOKER, CAD TREATMENTS: CARDIOLOGY CONSULT 07-18-18 CONTINUOUS CARDIAC MONITORING ER: ASA RESP ASSESSMENT: 07-18-18: O2 2L NC, CPAP (This form is maintained as a part of the permanent medical record) 2014 [employer]. All Rights Reserved MILDRED [email or web address] Office: [phone] [facility]ITAL[facility]
[2018-07-19] MEDS ORDERED: Sodium Chloride 0.9% 250 ML 250 ML IVPB SCH (13:15)
--- NOTE | 2018-07-19 15:43 | PRG ---
DATE OF SERVICE: 07/19/2018 SERVICE: Pulmonary Medicine. INTERVAL HISTORY: The patient is actually doing quite well from a respiratory standpoint. He denies any current chest pain, fevers, chills, shortness of breath. He did not experience any shocks yeste rday. There has been no interval change to his condition otherwise. He is fairly happy with the pro adenike that he has made since he has been here. He is hoping to go home today, but I have deferred to Dr. Carter. PHYSICAL EXAMINATION: VITAL SIGNS: Afebrile, pulse 55, blood pressure 105/58, respirations 18, saturation 97% on room air. GENERAL: The patient is awake, alert, no apparent distress. LUNGS: Excellent air entry. Dependent crackles are minimal. No prolonged expiratory phase is prese nt. There is no rhonchi. HEART: Normal rate, regular. ABDOMEN: Soft, nontender, nondistended. Bowel sounds are positive. MUSCULOSKELETAL: No cyanosis or clubbing. There is 1+ pitting in the bilateral lower extremities. NEUROLOGIC: Grossly nonfocal. LABORATORY DATA: Creatinine is 1.74, BUN 50. Basic metabolic profile is basically unremarkable othe rwise. His uric acid level is 10.2, magnesium and calcium fall within normal limits. TSH is normal. ASSESSMENT: 1. Sustained ventricular tachycardia. 2. Acute kidney injury, improving. 3. Non-ST elevation myocardial infarction. 4. Obstructive sleep apnea, previously not able to tolerate CPAP therapy. 5. Chronic systolic and diastolic heart failure, currently hypovolemic. DISCUSSION AND PLAN: The patient is doing fairly well from a respiratory standpoint. We will wean away the oxygen as tolerated. He is stable for transition to the telemetry unit. Pulparish flores or Critical Care will continue to follow along in this location, but when he landed on the floor , we will sign off. The patient will follow up with me in the outpatient setting to look into beverley smith a repeat polysomnogram setup as he is interested in trying once again after discussing the risks an d benefits of pursuing therapy with him and his .
[2018-07-19] MEDS ORDERED: Loratadine 10 MG TAB PO SCH (16:00)
[2018-07-19] MEDS ORDERED: Warfarin Sodium 5 MG TAB PO SCH (17:00)
[2018-07-19] MEDS: Amiodarone 200 MG TAB PO SCH (20:29)
[2018-07-19] MEDS: Atorvastatin Calcium 40 MG TAB PO SCH (20:29)
[2018-07-19] MEDS: Carvedilol 6.25 MG TAB PO SCH (20:29)
[2018-07-19] MEDS: Insulin Glargine 60 UNITS in Pre-Filled Syringe 1 EACH SC SCH (20:30)
[2018-07-19 20:54] LABS: Bilirubin Negative (Negative); Blood, Urine Negative (Negative); Clarity CLEAR (Clear); Glucose, Urine (Dipstick) Negative (Negative); Leukocyte Trace (Negative); Nitrite Negative (Negative); Protein, Urine (Dipstick) Negative (Neg-Trace); Specific Gravity, Urine 1.021 (1.002-1.036); pH, Urine 5.5 (5.0-9.0)
[2018-07-19 20:56] LABS: Bacteria/HPF None Seen HPF (None Seen); Hyaline Casts/LPF 0-3 HYALINE CAST LPF (0-3 Hyaline); Pathc Cast-AUWi Flag 0.14 (0-2.49); RBC/HPF 0-3 HPF (0-3); Squamous Epithelial None Seen HPF (0-3); WBC/HPF 0-3 HPF (0-3)
[2018-07-20 04:59] LABS: Prothrombin Time 22.4 SEC (12.0-14.7)
[2018-07-20 05:04] LABS: Anion Gap 10 mmol/L (10-20); BUN (Urea Nitrogen) 45 mg/dL (8.4-25.7); Calc. Creatinine Clearance 66 mL/min (70-130); Calcium 9.5 mg/dL (7.8-10.44); Carbon Dioxide 29 mmol/L (23-31); Chloride 103 mmol/L (98-107); Estimated GFR-MDRD 50; Glucose 111 mg/dL (83-110); Magnesium 1.9 mg/dL (1.6-2.6); Potassium 4.3 mmol/L (3.5-5.1); Sodium 138 mmol/L (136-145)
[2018-07-20] MEDS: Carvedilol 6.25 MG TAB PO SCH (08:36)
[2018-07-20] MEDS: Fenofibrate 48 MG TAB PO SCH (08:36)
[2018-07-20] MEDS: Amiodarone 200 MG TAB PO SCH (08:36)
[2018-07-20] MEDS: Sacubitril 24.5 MG/Valsartan 25.5 MG TABLET PO SCH (08:37)
--- NOTE | 2018-07-20 09:56 | DIS ---
DATE OF ADMISSION: 07/18/2018 DATE OF DISCHARGE: 07/20/2018 PRIMARY CARE PHYSICIAN: [facility] call admission. DISCHARGE DISPOSITION: Home. PRIMARY DISCHARGE DIAGNOSES: 1. Acute kidney failure, improving. 2. Demand ischemia of myocardium. 3. Thrombocytopenia. 4. Recurrent ventricular tachycardia. 5. Hyperkalemia on admission, resolved. SECONDARY DISCHARGE DIAGNOSES: Obstructive sleep apnea on continuous positive airway pressure, nonco mpliance with continuous positive airway pressure machine, obesity with body mass index 32, hypertens ion, dyslipidemia, diabetes type 2, chronic obstructive pulmonary disease, chronic combined systolic and diastolic heart failure stage C, chronic anticoagulation with warfarin, chronic atrial fibrillati on. PRIMARY PROCEDURE/OPERATION: ICD setting adjusted with interrogation. RADIOLOGICAL INVESTIGATION: Chest x-ray showed no acute cardiopulmonary process. SIGNIFICANT LABORATORY DATA: WBC 6.0, hemoglobin 15.6, platelet 101. INR 2.0. Sodium 138, potassiu m 4.3, BUN 45, creatinine 1.37, calcium 9.5, magnesium 1.9. Urinalysis unremarkable. Troponin 0.843 , TSH 3.56. DISCHARGE MEDICATIONS: Lipitor 40 mg p.o. daily, TriCor 48 mg p.o. daily, Lasix 40 mg p.o. daily, Hu malog insulin as per sliding scale, Lantus 60 units at bedtime, metformin 500 mg daily, warfarin 5 mg p.o. daily, amiodarone 400 mg p.o. b.i.d. for 1 week, then 200 mg p.o. b.i.d. for 1 week and then 20 0 mg p.o. daily, aspirin 162 mg p.o. daily, Coreg 6.25 mg p.o. b.i.d., DuoNeb q.6 hours p.r.n., Entre sto one tablet twice daily. CONTRAINDICATIONS: None. CODE STATUS: FULL CODE. INPATIENT CONSULTANTS: Dr. Carter was consulted while in hospital for ICD setting. Dr. Alanis, Cardio logy was consulted for elevated troponin. Dr. Haji was following this patient for CU patient. TEST RESULTS PENDING ON DISCHARGE: None. ALLERGIES: No known drug allergy. DISCHARGE PLAN: Post hospital, patient will follow up with Cardiology, Dr. Saravai on 07/30/2018 at 9:30 a.m. Patient will follow up with primary care physician, Kalin Roberson on 07/24/2018 at 10: 30 a.m. The patient has outpatient appointment with Dr. Carter. HOSPITAL COURSE: An 78-year-old male who has underlying history of ischemic cardiomyopathy. He was recently admitted in our hospital in 07/02/2018. He had a cardiac catheterization which showed 1/4 g raft was occluded. Rest of graft appears patent. He has [place]oux coronary artery disease. He has chr onic systolic heart failure. He is noncompliant with his CPAP machine for his sleep apnea history. This patient was treated while in hospital. At that time, he had hypoglycemia, but he was found with ventricular tachycardia and that is why AICD was placed and he was discharged home. He had another admission bounce back for recurrent ventricular tachycardia, though he was feeling burping sensation which was related with his ventricular tachycardia. He had significantly abnormal troponin during th is admission secondary to ventricular tachycardia. He was admitted to [facility]. He was treated with ami odarone drip. He had an AICD settings changed to this admission. Metalsmith Apprentice, perfect binder feeder offbearer and necktie stitcher were following. Patient agreed to continue to wear his CPAP machine at home. Elec trophysiologist recommended tapering doses of amiodarone upon discharge. This patient is given presc ription for new medication. As patient's heart rate runs low and that is why we reduced dose of Core g to 6.25 mg p.o. b.i.d. While in hospital, he had hyperkalemia initially because of potassium supplementation that was discon tinued upon discharge. His renal function was improving. He had acute kidney injury. It was also i mproving without doing any intervention. This admission, the patient did not have any flare up of CHF. He was euvolemic. Patient is seen and examined at bedside today. Review of systems reviewed with him and negative. PHYSICAL EXAMINATION: VITAL SIGNS: Currently, temperature 96.4, pulse 55, respiratory rate 14, saturation 97% on room air, weight 236 pounds, blood pressure 131/63. GENERAL: The patient is currently alert, awake, no obvious acute distress. HEAD: Normocephalic, atraumatic. EYES: Pupils round, reactive to light. Extraocular muscle intact. NECK: Supple, no JVD, no thyromegaly, no carotid bruit. LUNGS: Clear to auscultation without any rhonchi or rales. CARDIAC: S1, S2 appears irregular without any significant murmur. ABDOMEN: Soft and benign. Obesity present. EXTREMITIES: Trace edema. NEUROLOGIC: Nonfocal examination. Overall, patient is medically stable for discharge if Cardiology okay. Patient wants to go home juan jose braun
[2018-07-20 12:16] VITALS: BP 92/50
[2018-07-20 12:39] VITALS: TEMP 97.6
--- NOTE | 2018-07-20 14:00 | PRG ---
DATE OF SERVICE: 07/20/2018 SUBJECTIVE: Kenji Waterman is doing well this morning, status post AICD. No shortness of breath. OBJECTIVE: VITAL SIGNS: Temperature 96, pulse 55, blood pressure was . CHEST: No wheezing, no crackles. CARDIAC: Normal S1, S2. No gallops. ABDOMEN: No masses. IMPRESSION: Status post ventricular tachycardia, status post AICD, respiratory failure and renal odette lure. PLAN: The patient will be discharged home. Follow with Cardiology.
== END 2018-07-20 13:21 | disposition home or self-care (01) | DRG 281 ==
LOC: ERS 09:41 → IMCU/EMU 16:00
PROVIDERS: ADMIT Internal Medicine; ATTEND Internal Medicine
PROC: 4B02XTZ Measurement of Cardiac Defibrillator, External Approach (ICD-10-PCS; principal; 2018-07-18)
DX: I21.A1 Myocardial infarction type 2 (principal); N17.9 Acute kidney failure, unspecified; I47.2 Ventricular tachycardia; I50.42 Chronic combined systolic (congestive) and diastolic (congestive) heart failure; D69.6 Thrombocytopenia, unspecified; E87.6 Hypokalemia; G47.33 Obstructive sleep apnea (adult) (pediatric); Z68.32 Body mass index [BMI] 32.0-32.9, adult; E78.5 Hyperlipidemia, unspecified; I48.2 Chronic atrial fibrillation; E11.9 Type 2 diabetes mellitus without complications; I11.0 Hypertensive heart disease with heart failure; Z95.810 Presence of automatic (implantable) cardiac defibrillator; I25.2 Old myocardial infarction; E11.649 Type 2 diabetes mellitus with hypoglycemia without coma; Z91.19 Patient's noncompliance with other medical treatment and regimen; Z79.899 Other long term (current) drug therapy; Z79.4 Long term (current) use of insulin; Z79.84 Long term (current) use of oral hypoglycemic drugs; Z79.01 Long term (current) use of anticoagulants; Z79.82 Long term (current) use of aspirin; Z87.891 Personal history of nicotine dependence; K21.9 Gastro-esophageal reflux disease without esophagitis; E66.01 Morbid (severe) obesity due to excess calories; Z86.718 Personal history of other venous thrombosis and embolism; G89.29 Other chronic pain; M54.9 Dorsalgia, unspecified; M19.90 Unspecified osteoarthritis, unspecified site; Z95.1 Presence of aortocoronary bypass graft
CPT/HCPCS: 36415; 36416; 71045; 80048; 80053; 81001; 82553; 83735; 83880; 84443; 84484; 84550; 85025; 85610; 93005; 93798; 94660; 96365; J0282; J7070

== ENCOUNTER 2020-01-21 04:43 | Observation (INO) | payer MEDICARE, BC ==
[2020-01-21 05:36] LABS: #Eosinphils 0.1 thou/uL (0.0-0.7); #Lymphocytes 1.2 thou/uL (1.20-3.40); #Monocytes 0.4 thou/uL (0.11-0.59); #Neutrophils 3.3 thou/uL (1.40-6.50); %Basophils 0.4 % (0.0-1.0); %Eosinophils 1.5 % (0.0-10.0); %Lymphocytes 23.5 % (21.0-51.0); %Monocytes 7.6 % (0.0-10.0); Hemoglobin 13.5 g/dL (14.0-18.0); Mean Corpuscular HGB CONC 32.4 g/dL (32.0-36.0); Mean Corpuscular Hemoglobin 26.6 pg (27.0-31.0); Mean Platelet Volume 9.2 fL (7.4-10.4); Platelet Count 108 thou/uL (130-400); RBC Distribution Width 14.4 % (11.5-14.5); Red Blood Cell (RBC) Count 5.09 mill/uL (4.70-6.10); White Blood Cell (WBC) Count 4.9 thou/uL (4.8-10.8)
[2020-01-21 05:38] LABS: Prothrombin Time 22.3 SEC (12.0-14.7)
[2020-01-21 05:39] LABS: PTT 42.6 SEC (22.9-36.1)
[2020-01-21 05:52] LABS: ALT (SGPT) 21 U/L (8-55); AST (SGOT) 22 U/L (5-34); Albumin 3.7 g/dL (3.4-4.8); Alkaline Phosphatase 71 U/L (40-110); Anion Gap 13 mmol/L (10-20); BUN (Urea Nitrogen) 40 mg/dL (8.4-25.7); Bilirubin, Total 0.5 mg/dL (0.2-1.2); Calc. Creatinine Clearance 0 mL/min (70-130); Calcium 9.1 mg/dL (7.8-10.44); Carbon Dioxide 25 mmol/L (23-31); Chloride 106 mmol/L (98-107); Estimated GFR-MDRD 45; Glucose 65 mg/dL (83-110); Potassium 4.4 mmol/L (3.5-5.1); Protein, Total 6.7 g/dL (5.8-8.1); Sodium 140 mmol/L (136-145)
[2020-01-21] MEDS ORDERED: Dextrose 5% in Water 1,000 ML IV PRN (06:11)
[2020-01-21] MEDS ORDERED: Dextrose 50% Abboject 50 ML SYRINGE SLOW IVP PRN (06:11)
--- NOTE | 2020-01-21 07:39 | HP ---
CHIEF COMPLAINT: Lethargy and sweaty. HISTORY OF PRESENT ILLNESS: Mr. Waterman is an 79-year-old male with past medical history of diabetes mellitus, on insulin, hyperlipidemia, atrial fibrillation, DVT, anticoagulated, was brought to the emergency room by EMS after the patient became lethargic. EMS reported the patient was sleeping next to his when she noticed he was very sweaty, she could not get him to wake up, so she put syrup in his mouth. She checked his blood sugar and it was in the 50s. EMS reported the patient was awake and alert when they arrived, gave him additional IV glucose, transported the patient to the emergency room. Currently, patient is awake and alert, on D10 IV. His blood sugar is still in the low 60s. The patient is on insulin, last time he took it last night. Denies chest pain, nausea, vomiting, or diarrhea. The patient is being admitted in the hospital for further management. PAST MEDICAL HISTORY: As mentioned above in the history of present illness. PAST SURGICAL HISTORY: 1. Coronary artery bypass graft surgery x5. 2. Nasal surgery. 3. Skin cancer removal. 4. AICD placed. SOCIAL HISTORY: Denies alcohol or drinking. He is a former smoker. FAMILY HISTORY: Reviewed and noncontributory. HOME MEDICATIONS: Please see home medication reconciliation form for updated medications. ALLERGIES: NO KNOWN ALLERGIES. REVIEW OF SYSTEMS: Review of 14 systems negative except what is mentioned in history of present illness. PHYSICAL EXAMINATION: GENERAL: The patient is awake, alert, oriented, does not appear to be in acute distress. VITAL SIGNS: Blood pressure 136/53, pulse is 67, respiratory rate is 18, temperature is 95, pulse oximetry is 98% on room air. HEAD: Normocephalic, atraumatic. NECK: Supple. No JVD. CHEST: Fair bilateral air entry. HEART: Irregularly irregular. ABDOMEN: Soft, nontender. Bowel sounds present. NEUROLOGIC: Awake, alert, oriented x3. No focal findings. PSYCHIATRIC: Normal mood. EXTREMITIES: No clubbing or cyanosis. GENITOURINARY: No suprapubic tenderness. No flank tenderness. LABORATORY DATA: Sodium 140, BUN is 40, creatinine 1.5, glucose is 65. ASSESSMENT: 1. Hypoglycemia. 2. Diabetes mellitus, type 2, on insulin. 3. Encephalopathy, metabolic. 4. Anticoagulated. 5. Atrial fibrillation. 6. History of deep venous thrombosis. PLAN: 1. Admit. 2. Frequent Accu-Cheks. 3. Continue with IV D10W. 4. Reconcile home medications. 5. DVT prophylaxis. Continue home anticoagulants. EXPECTED LENGTH OF STAY: 1 midnight, if patient stable. Job ID: [id number]
[2020-01-21 07:47] VITALS: BMI 30.9
[2020-01-21] MEDS ORDERED: Enoxaparin Sodium 30 MG/0.3 ML SYRINGE SC SCH (09:00)
[2020-01-21] MEDS ORDERED: Sacubitril 49 MG/Valsartan 51 MG TABLET PO SCH (09:30)
[2020-01-21] MEDS ORDERED: Furosemide 40 MG TAB PO SCH (09:30)
[2020-01-21] MEDS: HumaLOG 300 UNITS/3 ML VIAL SC PRN ×4 (10:32→17:12)
[2020-01-21] MEDS ORDERED: Icosapent Ethyl 1 GM CAPSULE PO SCH (12:00)
--- NOTE | 2020-01-21 12:38 | PDOC.EVN ---
Event Note - Event Note Event Note: Doing fine. Not sure why his blood sugar might have dropped. Has an solutions specialist in [place]. Dr. Newell. He will try to get her number for. VSS. Exam is benign. Fully awake and alert. Blood sugars in 200 range. Continue SSI and allow the long acting insulin to wash out. Then can likely go back o his usual regimen.
[2020-01-21] MEDS: Acetaminophen 325 MG TAB PO PRN (12:54)
[2020-01-21] MEDS: Dextrose 10% in Water 1,000 ML IV SCH ×2 (14:00→19:13)
[2020-01-21] MEDS: Icosapent Ethyl 1 GM CAPSULE PO SCH (20:34)
[2020-01-21] MEDS: Carvedilol 6.25 MG TAB PO SCH (20:34)
[2020-01-21] MEDS: Sacubitril 49 MG/Valsartan 51 MG TABLET PO SCH (20:35)
[2020-01-21] MEDS ORDERED: Insulin Glargine 18 UNITS in Pre-Filled Syringe 1 EACH SC SCH (21:00)
[2020-01-21] MEDS ORDERED: Atorvastatin Calcium 40 MG TAB PO SCH (21:00)
[2020-01-22] MEDS ORDERED: HumaLOG 300 UNITS/3 ML VIAL SC PRN (00:01)
[2020-01-22] MEDS ORDERED: Melatonin 3 MG TAB PO PRN ×2 (01:37→01:42)
[2020-01-22] MEDS: Dextrose 10% in Water 1,000 ML IV SCH ×2 (01:45→08:11)
[2020-01-22] MEDS ORDERED: Levothyroxine Sodium 50 MCG TAB PO SCH (06:00)
[2020-01-22] MEDS: Acetaminophen 325 MG TAB PO PRN (08:01)
[2020-01-22] MEDS: Carvedilol 6.25 MG TAB PO SCH (08:05)
[2020-01-22] MEDS: Sacubitril 49 MG/Valsartan 51 MG TABLET PO SCH (08:05)
[2020-01-22] MEDS: Icosapent Ethyl 1 GM CAPSULE PO SCH (08:05)
[2020-01-22] MEDS ORDERED: HumaLOG 300 UNITS/3 ML VIAL SC SCH ×2 (09:00→13:30)
[2020-01-22] MEDS ORDERED: Furosemide 40 MG TAB PO SCH (09:00)
[2020-01-22] MEDS ORDERED: Aspirin Chewable 81 MG TAB PO SCH (09:00)
[2020-01-22] MEDS ORDERED: Aspirin 81 mg Enteric Coated Tablet PO SCH (09:00)
[2020-01-22] MEDS ORDERED: Warfarin Sodium 5 MG TAB PO SCH (09:00)
[2020-01-22 11:42] VITALS: BP 126/68; TEMP 98.3
--- NOTE | 2020-01-23 14:18 | DIS ---
DATE OF ADMISSION: 01/21/2020 DATE OF DISCHARGE: 01/22/2020 DISCHARGE DIAGNOSES: 1. Hypoglycemia. 2. Hyperglycemia. 3. Diabetes mellitus. 4. History of coronary artery disease. 5. History of automatic implantable cardioverter defibrillator placement. 6. Acute encephalopathy, metabolic secondary to hyponatremia. 7. History of atrial fibrillation. HISTORY OF PRESENT ILLNESS: The patient is an 79-year-old male, who presented via the emergency department. 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 He has been on a detailed treatment regimen and has had a very good hemoglobin A1c's routinely. On this occasion, the patient was noted to be very lethargic and diaphoretic by his . At night, his blood sugar was in the 50s. EMS was called. They arrived , he was awake and alert. He was given additional IV glucose and brought to the emergency department. However, at that time, his blood sugars were still in the 60s and he was felt to be appropriate for observation. HOSPITAL COURSE: The patient was given IV glucose and insulin held until his sugars responded. He then became hyperglycemic and was on aggressive sliding scale insulin. However, he continued to be hyperglycemic as the sliding scale doses were still less than his usual scheduled dosing at home. At that evening, he was given approximately 75% to 80% of his usual home dose of long-acting insulin. By the following day, his blood sugars were still hyperglycemic and he was given back his usual regimen. He still remained somewhat on the hyperglycemic side as he said he would have typically done more based on a sliding scale at home. 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 Therefore, I felt that he was likely capable of managing this at home better than we could in the hospital. At that point, the patient did concede that he might have accidentally taking some of his short-acting insulin in the high dose rather than his long-acting as he typically would do at night and that could of ultimately led to his symptoms. PHYSICAL EXAMINATION: VITAL SIGNS: On the day of discharge, temperature is 98.3, pulse 70, respirations 16, O2 saturations 98% on room air, BP 126/68. GENERAL: He is awake, alert, oriented, pleasant, cooperative. HEART: Regular rate and rhythm. LUNGS: Clear. ABDOMEN: Benign. EXTREMITIES: No edema. DISPOSITION: The patient is discharged to home. He will continue with his usual home medication regimen and diet. He is to follow up with Dr. Desai by phone , as soon as he can make that happen and followup in person once the clinic reopens after the coronavirus issues. He can return to the hospital at anytime should he have the need to do so. Job ID: [id number] MTDD
--- NOTE | 2020-01-23 14:36 | EKG ---
Test Reason : Blood Pressure : / mmHG Vent. Rate : 060 BPM Atrial Rate : 234 BPM P-R Int : 000 ms QRS Dur : 114 ms QT Int : 488 ms P-R-T Axes : 000 -18 076 degrees QTc Int : 488 ms Demand pacemaker; interpretation is based on intrinsic rhythm Atrial fibrillation with premature ventricular or aberrantly conducted complexes Incomplete left bundle branch block Prolonged QT Abnormal ECG Reconfirmed by RIYA ALMEIDA ([id number]), commissioning editor SEBASTIEN GIRALDO ([id number]) on 01/23/2020 2:35:38 PM Referred By: Confirmed By:RIYA ALMEIDA
== END 2020-01-22 15:44 | disposition home or self-care (01) ==
LOC: ERS 04:43 → INTOOBSV 06:13 → T4-B 06:13
PROVIDERS: ADMIT Internal Medicine; ATTEND Internal Medicine
DX: E11.649 Type 2 diabetes mellitus with hypoglycemia without coma (principal); E11.65 Type 2 diabetes mellitus with hyperglycemia; I25.10 Atherosclerotic heart disease of native coronary artery without angina pectoris; E87.1 Hypo-osmolality and hyponatremia; G93.41 Metabolic encephalopathy; I48.91 Unspecified atrial fibrillation; E78.5 Hyperlipidemia, unspecified; K21.9 Gastro-esophageal reflux disease without esophagitis; Z79.4 Long term (current) use of insulin; Z95.1 Presence of aortocoronary bypass graft; Z95.810 Presence of automatic (implantable) cardiac defibrillator; Z87.891 Personal history of nicotine dependence; Z79.01 Long term (current) use of anticoagulants; Z79.82 Long term (current) use of aspirin
CPT/HCPCS: 80053; 82962 ×2; 83880; 84484; 85025; 85610; 85730; 93005; 96360; 96361 ×2; 99285; G0378 ×3; J1815; 36415; 36416

== ENCOUNTER 2020-09-21 11:34 | Inpatient (IN) | payer MEDICARE, BC ==
--- NOTE | 2020-09-21 12:19 | RAD ---
EXAM: CHEST ONE VIEW HISTORY: Rectal bleeding. COMPARISON: 07/18/2018 FINDINGS: Postoperative changes related to CABG are again noted. Single lead left subclavian AICD device remain s in place. Cardiac silhouette remains enlarged. The pulmonary vasculature is within normal limits. Inferior aspect of each lateral costophrenic angle is excluded from view. Pulmonary vasculature is wi thin normal limits. No consolidation or large pleural effusion is seen. Chest is overall stable compared to the prior exam. IMPRESSION: 1. Cardiomegaly without overt CHF. 2. No acute cardiopulmonary process.
[2020-09-21 12:47] LABS: INR-International Normal Ratio 1.6; PTT 36.5 sec (22.9-36.1); Prothrombin Time 19.8 sec (12.0-14.7)
[2020-09-21 12:54] LABS: Hemoglobin 7.6 g/dL (14.0-18.0); Mean Corpuscular HGB CONC 29.7 g/dL (32.0-36.0); Mean Corpuscular Hemoglobin 20.1 pg (27.0-31.0); Mean Corpuscular Volume 67.6 fL (78.0-98.0); Mean Platelet Volume 5.8 fL (7.4-10.4); Platelet Count 141 thou/uL (130-400); RBC Distribution Width 17.9 % (11.5-14.5); Red Blood Cell (RBC) Count 3.76 mill/uL (4.70-6.10); White Blood Cell (WBC) Count 5.6 thou/uL (4.8-10.8)
[2020-09-21 12:55] LABS: #Eosinphils 0.3 thou/uL (0.0-0.7); #Lymphocytes 1.3 thou/uL (1.20-3.40); #Monocytes 0.6 thou/uL (0.11-0.59); #Neutrophils 3.5 thou/uL (1.40-6.50); %Basophils 0.8 % (0.0-1.0); %Eosinophils 4.8 % (0.0-10.0); %Lymphocytes 22.9 % (21.0-51.0); %Monocytes 9.9 % (0.0-10.0); %Neutrophils 61.6 % (42.0-75.0)
[2020-09-21 13:01] LABS: ALT (SGPT) 14 U/L (8-55); AST (SGOT) 13 U/L (5-34); Albumin 3.9 g/dL (3.4-4.8); Alkaline Phosphatase 55 U/L (40-110); Anion Gap 16 mmol/L (10-20); BUN (Urea Nitrogen) 49 mg/dL (8.4-25.7); Bilirubin, Total 0.5 mg/dL (0.2-1.2); Calc. Creatinine Clearance 0 mL/min (70-130); Calcium 8.7 mg/dL (7.8-10.44); Carbon Dioxide 28 mmol/L (23-31); Chloride 102 mmol/L (98-107); Globulin 2.7 g/dL (2.4-3.5); Glucose 176 mg/dL (83-110); Lipase 38 U/L (8-78); Potassium 4.6 mmol/L (3.5-5.1); Protein, Total 6.6 g/dL (5.8-8.1); Sodium 141 mmol/L (136-145)
[2020-09-21 13:13] LABS: Bilirubin Negative (Negative); Blood, Urine Negative (Negative); Clarity Clear (Clear); Glucose, Urine (Dipstick) Normal (Negative); Ketone, Urine Negative (Negative); Leukocyte Negative Leu/uL (Negative); Nitrite Negative (Negative); Protein, Urine (Dipstick) Negative (Neg-Trace); Specific Gravity, Urine 1.011 (1.002-1.036); Urobilinogen Normal mg/dL (Less than 2)
[2020-09-21 13:21] LABS: Hypochromia MODERATE=16-30 cells (100X) (0-5/hpf); MDiff Complete? YES; Microcytosis MODERATE=15-30 cells (100X) (0-5/hpf); Ovalocytes SLIGHT = 2-5 cells (100X) (0-1/hpf); Platelet Morphology Comment Appears Adequate; Polychromasia SLIGHT = 2-3 cells (100X) (0-2/hpf)
[2020-09-21] MEDS ORDERED: Senokot S 8.6-50 MG TAB PO PRN (13:40)
[2020-09-21] MEDS ORDERED: Acetaminophen 325 MG TAB PO PRN (13:40)
[2020-09-21] MEDS ORDERED: Sodium Chloride 0.9% 1,000 ML IV SCH (13:45)
[2020-09-21] MEDS ORDERED: HumaLOG 300 UNITS/3 ML VIAL SC PRN (13:45)
[2020-09-21] MEDS ORDERED: Dextrose 5% in Water 1,000 ML IV PRN (13:45)
[2020-09-21] MEDS ORDERED: Dextrose 50% Abboject 50 ML SYRINGE SLOW IVP PRN (13:45)
[2020-09-21] MEDS ORDERED: Acetaminophen 500 MG TAB ONE (14:29)
[2020-09-21 15:00] LABS: Iron 12 ug/dL (65-175); Iron Binding Capacity, Total 358 mcg/dL (261-462)
[2020-09-21] MEDS ORDERED: Sodium Chloride 0.9% (PF) 10 ML VIAL FS PRN (15:30)
[2020-09-21 15:37] LABS: Troponin I 0.021 ng/mL (< 0.028)
[2020-09-21] MEDS ORDERED: GoLYTELY 4,000 ml Bottle PO SCH (16:45)
--- NOTE | 2020-09-21 17:06 | HP ---
PCP: Luisa Gagnon in [place]. CHIEF COMPLAINT: Rectal bleeding, dizziness. HISTORY OF PRESENT ILLNESS: Mr. Waterman is a very pleasant 80-year-old man, who has been complaining of shortness of breath for the last several weeks. 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 Cardiology today noticed that he has had a drop in his hemoglobin and hematocrit over the last couple of weeks and he sent him over to the emergency room for further evaluation. The patient is on Coumadin for atrial fibrillation and his last INR checked today was 1.6. The patient states that Dr. Saravia mentioned today that he might switch him over to Eliquis once they get the source of the GI bleed under control. He reports that he has had atrial fibrillation for the last several years. He had an ablation 2 years ago in 2018, which was successful and then had his atrial fibrillation recurred, so they did a second ablation within the last couple of months, which was not successful. He has not heard what the next steps will be. He last saw Dr. Carter 2 weeks ago. On evaluation today in the emergency room, it showed that he had a hemoglobin of 7.6, hematocrit was 25.4, and platelet count was 141. Occult blood was positive. PTT is 36.5, prothrombin time is 19.8, and his INR was 1.6. BUN is 49, creatinine is 2.07, which is about at baseline for this patient. The patient is also diabetic and his glucose today was 176. The rest of the lab work was largely unremarkable. ER typed and screened for 1 unit of packed red blood cells and then called for admission for this patient to have an evaluation for the source of the GI bleed. PAST MEDICAL HISTORY: Coronary artery disease, he has had a collapsed lung in the past. He has had a DVT in the right leg; skin cancer; GERD; osteoarthritis; diabetes type 2, he is insulin-dependent; hyperlipidemia; and atrial fibrillation. SURGICAL HISTORY: CABG x5 vessel, nasal surgery, skin cancer removal, right knee replacement, AICD placement, and heart ablation x2. PSYCHIATRIC HISTORY: None. SOCIAL HISTORY: Denies any alcohol or drug use. He is a former tobacco smoker. He quit smoking more than 10 years ago. He lives at home with his family. REVIEW OF SYSTEMS: The patient complains of dyspnea, especially on exertion. He said he feels generally weak. He denies any fever or chills. Denies any chest pain or cough. Denies any abdominal pain, nausea, vomiting, or diarrhea. All systems were reviewed and were negative unless mentioned above or in HPI. ALLERGIES: NONE. CURRENT MEDICATIONS: 1. Coreg 25 mg p.o. b.i.d. 2. Atorvastatin 40 mg p.o. once a day. 3. Furosemide 40 mg p.o. once a day. 4. Coumadin 5 mg p.o. once a day. 5. NovoLog sliding scale twice a day and then he takes Levemir in the evening based on what his sugars are running. He has a glucose monitor in his left arm that he can check with his phone. 6. It is noted that he was on Entresto until last week and Dr. Saravia took him off that. PHYSICAL EXAMINATION: VITAL SIGNS: Blood pressure 136/55, pulse is 78, respiratory rate is 17, temperature is 98.2, pO2 saturations are 98% on room air. GENERAL: The patient is awake, alert, and oriented. He is nontoxic appearing. He is however pale. HEENT: Head is atraumatic and normocephalic. NECK: Supple. No JVD is noted. Trachea is midline. CHEST: Clear to auscultation. Chest expansion is equal. HEART: Irregularly irregular. ABDOMEN: Soft, nontender. Bowel sounds are heard. NEUROLOGIC: The patient is alert and oriented x3. PSYCH: He has a normal affect. EXTREMITIES: Moves all extremities. No clubbing, edema, or cyanosis is noted. DIAGNOSTIC STUDIES: EKG in the emergency room shows atrial fibrillation with controlled ventricular response, beats per minute 76, with unifocal premature ventricular complexes, ST segments are normal, T-waves are flattened in aVL, V1, V2. PLAN AND ASSESSMENT: 1. Symptomatic anemia due to most likely gastrointestinal bleed. The patient is on Coumadin, which we will hold. The patient has been typed and screened for 1 unit of packed red blood cells. We will infuse 1 unit. Serial hemoglobins and hematocrits overnight. Dr. Welch who is on-call for GI group has been contacted from the ER. We have also consulted him and iron studies have been ordered, ferritin level. We made the patient n.p.o. at midnight. Clear liquids today. 2. Positive guaiac, gastrointestinal bleed. We will hold his Coumadin for now. Please see #1. 3. History of diabetes. Accu-Cheks before meals and at bedtime, sliding scale for coverage. We have restarted his Lantus that he takes at night at his normal dose, this can be titrated as needed. 4. History of atrial fibrillation. He has had two ablations. He is under the care of Dr. Saravia and Dr. Carter. We have asked Dr. Saravia as sees the patient, as he saw him today in the office to consult and give us recommendations on coagulation moving forward. 5. Hyperlipidemia. We will restart his atorvastatin. 6. SCDs for deep venous thrombosis prevention. We will give Protonix b.i.d. for PUD and GI bleed. 7. Dr. Mcdaniel is attending today. 8. Clincal course dependent on clinical findings. Job ID: [id number]
[2020-09-21 19:27] LABS: Troponin I 0.021 ng/mL (< 0.028)
[2020-09-21] MEDS: Pantoprazole 40 MG VIAL IVP SCH (21:32)
[2020-09-21 22:09] LABS: SARS-CoV-2 MS2 Positive; SARS-CoV-2 N Gene Negative; SARS-CoV-2 S Gene Negative; SARS-CoV-2 by NAA Not Detected (NotDetected); SARS-CoV-2 orf1ab Negative
[2020-09-21] MEDS: Insulin Glargine 12 UNITS in Pre-Filled Syringe 1 EACH SC SCH (23:04)
--- NOTE | 2020-09-22 06:46 | CON ---
DATE OF CONSULTATION: 09/21/2020 REASON FOR CONSULTATION: Severe anemia, symptomatic. HISTORY OF PRESENT ILLNESS: Mr. Waterman is an 80-year-old male, who has had a two-month history of progressive weakness and dyspnea on exertion. The patient was seen by his pet sitter this morning when he was advised to present to the emergency room for evaluation for his decreasing blood count. The patient denies having seen any melena, hematochezia, or rectal bleeding. However, he does have heme-positive stool tested in the ER. From the GI standpoint, he has been doing well without any localizing pain or discomfort. There is no change in bowel function. There is no nausea or vomiting. He has been eating well. He reportedly has gained approximately 20 pounds over the last two months due to fluid retention, although has not noted any worsening of his edema in the lower extremities. The patient reportedly had a colonoscopy in the distant past, perhaps 15 to 20 years ago in [place]. He has been on chronic warfarin for a history of atrial fibrillation. PAST MEDICAL HISTORY: 1. Coronary artery disease, status post bypass x5. 2. Hypertension. 3. Adult onset diabetes. 4. Hyperlipidemia. 5. Atrial fibrillation. 6. Status post cardiac ablation. 7. History of defibrillator placement. ALLERGIES: NONE. MEDICATIONS: At home include; 1. Coreg 25 mg b.i.d. 2. Atorvastatin 40 mg at bedtime. 3. Furosemide 40 mg daily. 4. Warfarin 5 mg daily. 5. Entresto one daily. 6. Insulin. SOCIAL HISTORY: The patient is . Lives with his . Has two daughters, daughters live nearby. He stopped smoking and alcohol usage in 1994. FAMILY HISTORY: Negative for any known GI problem, liver disease, or GI malignancy. REVIEW OF SYSTEMS: Ten-point review of systems did not show any pertinent positives or negatives. A 20-pound weight gain as noted above. He denies any chest pain. Severe dyspnea on exertion as noted above. No other reported symptoms other than listed above. PHYSICAL EXAMINATION: VITAL SIGNS: Temperature is 97.1, blood pressure 137/59, and pulse of 70. GENERAL: He is alert, conversant without any distress. EYES: Shows anicteric sclerae. NECK: Supple. No adenopathy. CV: Shows normal S1 and S2. Regular rate and irregular rhythm. CHEST: Shows a breath sounds clear to auscultation. ABDOMEN: Mildly protuberant, but soft and nontender. No palpable mass or organomegaly. Good bowel sounds. No bruit. EXTREMITIES: Shows mild 1+ pretibial and pedal edema in the right leg, none on the left leg. LABORATORY DATA: WBCs 5.6, hemoglobin 7.6, hematocrit 25%, MCV of 67, and platelet count of 141 (his hemoglobin was 13.5 in December of this year). INR 1.6 and PTT 36.5. Electrolytes within normal range. Creatinine is 2.07 and BUN of 49. Serum iron is 12, TIBC 358, saturation 3%, and ferritin is 14.7. Serum LFTs are normal. Serum lipase 38. ASSESSMENT: 1. Microcytic anemia with iron parameters consistent with iron deficiency. This is certainly new onset as his hemoglobin from six months ago was normal. The patient has heme-positive stool in the ER without any overt bleeding. Chronic occult gastrointestinal blood loss is the most likely source. 2. Coronary artery disease. 3. History of heart failure, status post defibrillator placement. 4. Atrial fibrillation on chronic warfarin. 5. Hypertension. 6. Diabetes. RECOMMENDATION: 1. Agree with blood transfusions as ordered as the patient is quite symptomatic from his anemia, despite his hemoglobin is not below 7 g-dL. 2. Bowel prep tonight. 3. Proceed with upper endoscopy and colonoscopy in a.m. pending COVID-19 results - should be back in early head start director. 4. Indication including risks and procedure were discussed with Mr. Waterman and his daughter, all questions answered. We will proceed. Job ID: [id number]
[2020-09-22 07:19] LABS: Hemoglobin 8.5 g/dL (14.0-18.0); Mean Corpuscular Volume 69.8 fL (78.0-98.0); Mean Platelet Volume 11.7 fL (7.4-10.4); Platelet Count 132 thou/uL (130-400); RBC Distribution Width 19.7 % (11.5-14.5); Red Blood Cell (RBC) Count 4.04 mill/uL (4.70-6.10); White Blood Cell (WBC) Count 4.8 thou/uL (4.8-10.8)
[2020-09-22 07:29] LABS: #Eosinphils 0.3 thou/uL (0.0-0.7); #Lymphocytes 1.1 thou/uL (1.20-3.40); #Monocytes 0.4 thou/uL (0.11-0.59); %Basophils 0.5 % (0.0-1.0); %Eosinophils 5.9 % (0.0-10.0); %Lymphocytes 23.3 % (21.0-51.0); %Monocytes 8.6 % (0.0-10.0); %Neutrophils 61.7 % (42.0-75.0)
[2020-09-22 07:36] LABS: ALT (SGPT) 13 U/L (8-55); AST (SGOT) 16 U/L (5-34); Albumin 3.7 g/dL (3.4-4.8); Alkaline Phosphatase 49 U/L (40-110); Anion Gap 14 mmol/L (10-20); BUN (Urea Nitrogen) 38 mg/dL (8.4-25.7); Bilirubin, Total 0.8 mg/dL (0.2-1.2); Calc. Creatinine Clearance 49 mL/min (70-130); Calcium 8.8 mg/dL (7.8-10.44); Carbon Dioxide 28 mmol/L (23-31); Chloride 104 mmol/L (98-107); Globulin 3.1 g/dL (2.4-3.5); Glucose 186 mg/dL (83-110); Potassium 4.4 mmol/L (3.5-5.1); Protein, Total 6.8 g/dL (5.8-8.1); Sodium 142 mmol/L (136-145)
[2020-09-22] MEDS ORDERED: Famotidine/PF 20 mg/2ml Vial SLOW IVP SCH (09:00)
[2020-09-22] MEDS ORDERED: Lidocaine 1% PF 5 ML VIAL ONE (09:34)
[2020-09-22] MEDS ORDERED: PROPOFOL 200 MG/20 ML VIAL ONE (09:34)
[2020-09-22] MEDS ORDERED: Acetaminophen 500 MG TAB PO SCH (10:30)
[2020-09-22] MEDS ORDERED: Gabapentin 100 MG CAP PO SCH (10:30)
--- NOTE | 2020-09-22 10:32 | OP ---
DATE OF PROCEDURE: 09/22/2020 PROCEDURES PERFORMED: 1. Esophagogastroduodenoscopy with biopsy. 2. Colonoscopy with biopsy and tattoo injection. PREPROCEDURE DIAGNOSES: 1. Iron deficiency anemia. 2. Fecal occult blood positive. POSTPROCEDURE DIAGNOSES: 1. Solitary gastric erosions, midbody. 2. Ulcerated colon mass in proximal transverse colon. 3. Sigmoid diverticulosis coli. DESCRIPTION OF PROCEDURE: Written consents were obtained prior to procedure. After adequate sedation, the forward-viewing endoscope was advanced down the stomach under direct vision to the third portion of duodenum. The duodenum and the bulb appeared normal. The gastric antrum appeared normal. A solitary gastric erosions was seen in the mid body anteriorly. The rest of the cardia and fundus appeared normal. Biopsies obtained for H pylori. The GE junction located at 42 cm. The esophagus appeared normal. The patient was then repositioned for colonoscopy. Digital exam performed was normal. The endoscope was advanced to the cecum. The quality of the bowel prep was good. The cecum and ascending colon appeared normal. Near the hepatic flexure and proximal transverse colon, a 5 x 10 ulcerated mass was seen. It occupies approximately one-third of the circumference and nonobstructing. Biopsies obtained. Ink injection for site tattooing was placed distal and proximal to the lesion. The remainder of the transverse colon, splenic flexure, descending appeared normal. Few scattered diverticula were noted in the sigmoid colon. The rectal vault appeared normal including retroflexion. The patient tolerated the procedure well. ASSESSMENT: 1. Colon mass, likely malignant. Source of his iron deficiency anemia. 2. Solitary gastric erosion. PLAN: 1. Await biopsy results. 2. Abdominal pelvic CT. 3. General Surgery evaluation. Job ID: [id number]
[2020-09-22] MEDS ORDERED: diphenhydrAMINE 25 MG CAP PO PRN (12:37)
--- NOTE | 2020-09-22 12:42 | PDOC.HOSPP ---
- Subjective Encounter Date: 09/22/20 Encounter Time: 11:30 Subjective: Went to see patient around 0830 this morning and patient was in Endo. Went back around noon and patient was sitting at the side of the bed. Cardiology, per nurses, had just left. He denies any new complaints, reports GARNER is slightly better after transfusion but he still gets winded with exertion. - Objective Vital Signs & Weight: Vital Signs (12 hours) Temp Pulse Resp BP BP Pulse Ox 09/22/20 08:00 98.6 F 73 18 142/60 H 94 L 09/22/20 03:53 97.9 F 75 16 168/72 H 97 Weight Weight 104.071 kg I&O: 09/21/20 09/22/20 09/23/20 06:59 06:59 06:59 Intake Total 830 Balance 830 Result Diagrams: 09/22/20 06:58 09/22/20 06:58 Additional Labs: Accuchecks 09/22/20 09/22/20 09/21/20 11:36 05:55 22:14 POC Glucose 148 H 156 H 169 H Hospitalist ROS - Review of Systems Constitutional: denies: fever, chills, sweats, weakness, malaise, other Eyes: denies: pain, vision change, conjunctivae inflammation, eyelid inflammation, redness, other ENT: reports: nose congestion Respiratory: denies: cough, dry, shortness of breath, hemoptysis, pleuritic p ain, sputum, wheezing, other Cardiovascular: denies: chest pain, palpitations, orthopnea, paroxysmal noc. dyspnea, edema, light headedness, other Gastrointestinal: denies: nausea, vomiting, abdominal pain, diarrhea, constipation, melena, hematochezia, other Genitourinary: denies: dysuria, frequency, incontinence, hematuria, retention, other Musculoskeletal: denies: neck pain, shoulder pain, arm pain, back pain, hand pain, leg pain, foot pain, other Skin: denies: rash, lesions, briana, bruising, other Neurological: denies: weakness, numbness, incoordination, change in speech, confusion, seizures, other - Medication Medications: Active Medications Generic Name Dose Route Start Last Admin Trade Name Freq PRN Reason Stop Dose Admin Insulin Glargine 12 units/ 0.12 mls @ 0 mls/hr 12/22/20 21:00 09/21/20 23:04 Miscellaneous Medication SC 0.12 mls HS RAJWINDER Administration - Exam Eye: PERRL, anicteric sclera ENT: normocephalic atraumatic Neck: supple, no JVD Heart: RRR, normal peripheral pulses Respiratory: CTAB, normal chest expansion Gastrointestinal: soft, non-tender Extremities: no cyanosis, 1+ LE edema Skin: normal turgor Neurological: cranial nerve grossly intact Musculoskeletal: normal tone, normal strength Psychiatric: normal affect, A&O x 3 Hosp A/P (1) GI bleed Code(s): K92.2 - GASTROINTESTINAL HEMORRHAGE, UNSPECIFIED Status: Acute (2) Colon tumor Code(s): D49.0 - NEOPLASM OF UNSPECIFIED BEHAVIOR OF DIGESTIVE SYSTEM Status: Acute (3) Afib Code(s): I48.91 - UNSPECIFIED ATRIAL FIBRILLATION Status: Chronic Qualifiers: Atrial fibrillation type: chronic (4) Chronic anticoagulation Code(s): Z79.01 - USP (CURRENT) USE OF ANTICOAGULANTS Status: Chronic (5) Chronic combined systolic and diastolic CHF, 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 Code(s): I50.42 - CHRONIC COMBINED SYSTOLIC AND DIASTOLIC HRT FAIL Status: Chronic (6) DM type 2 (diabetes mellitus, type 2) Status: Chronic (7) Dyslipidemia Code(s): E78.5 - HYPERLIPIDEMIA, UNSPECIFIED Status: Chronic (8) HTN (hypertension) Code(s): I10 - ESSENTIAL (PRIMARY) HYPERTENSION Status: Chronic Qualifiers: (9) LEON (obstructive sleep apnea) Code(s): G47.33 - OBSTRUCTIVE SLEEP APNEA (ADULT) (PEDIATRIC) Status: Chronic (10) Symptomatic anemia Code(s): D64.9 - ANEMIA, UNSPECIFIED Status: Acute - Plan #GI Bleed/symptomatic anemia/iron deficiency anemia -Had Upper/lower GI scope today and a tumor was found in the proximal transverse colon. Biopsies were obtained. Dr. Watts was consulted. Scheduled for surgery in AM. - Will go for Abd/Pel CT with contrast today - Will be on a clear liquid diet today; NPO after midnight - had 1 PRBC infused yesterday; Hbg improved to 8.5; will recheck in AM #CHF -Last Echo in our records is from 2018, ED 35-40% - Cardiology is on the case, home meds restart (coumadin is being held) #HTN/HLD/ Home meds restarted #Hypothyroidism Home meds restarted; will check TSH #DM Accuchecks ACHS Sliding Scale Humalog and Lantus QPM SCDs for DVT prevention; Protonix IV q12h/PUD prevention Case discussed with Dr. Casey
[2020-09-22] MEDS ORDERED: MEROPENEM 1 GM/50 ML 1 GM in Premix Bag 1 BAG IVPB SCH (12:45)
[2020-09-22] MEDS ORDERED: Iopamidol-370 76% 500 ML 1 ML ONE (12:52)
--- NOTE | 2020-09-22 13:00 | CON ---
DATE OF CONSULTATION: HISTORY OF PRESENT ILLNESS: The patient is an 80-year-old gentleman who has a long history of an ischemic cardiomyopathy, who was found to have a colon mass. The patient has a history of coronary artery bypass graft surgery x5 in 1996. He was followed many years by Dr. Rider. The patient also had chronic atrial fibrillation and has been on chronic anticoagulation therapy. The patient was seen initially here in 2018 with altered mental status and congestive heart failure. The patient underwent a cardiac evaluation including cardiac catheterization and was found to have a severe decrease in left ventricular systolic function, estimated ejection fraction 25% to 30%. The LOPEZ was a patent vessel, the saphenous vein graft to the 1st diagonal and OM was patent with mild disease, the saphenous vein graft to the right coronary artery had a patent anastomosis, and there was distal disease in the posterior descending artery. The patient subsequently was placed on medical therapy including Entresto. The patient also has had difficulty with ventricular tachycardia. He underwent a recent ablation in [place] for ventricular tachycardia. The patient recently underwent a followup PET scan, which revealed him to have a moderately decreased left ventricular ejection fraction at 37%. There was decreased activity in the anterior wall, suggestive of ischemia and infarction. The patient denies having any chest pain. He noticed having increasing weakness and dyspnea. The patient was recently found to be markedly anemic. He was admitted for further evaluation. PAST MEDICAL HISTORY: 1. Coronary artery disease. 2. Ischemic cardiomyopathy. 3. Congestive heart failure. 4. Diabetes mellitus. 5. Hypertension. 6. Chronic atrial fibrillation. 7. Chronic renal insufficiency. 8. GE reflux. 9. History of ventricular tachycardia. PAST SURGICAL HISTORY: Coronary artery bypass graft surgery. MEDICATIONS: See nursing list. ALLERGIES: NO KNOWN DRUG ALLERGIES. PHYSICAL EXAMINATION: GENERAL: This was an 80-year-old gentleman, who is pale in no acute distress. VITAL SIGNS: Blood pressure 142/60. NECK: No jugular venous distention. LUNGS: Clear to auscultation. HEART: Irregular rate and rhythm. Normal S1 and S2. A 1/6 systolic murmur. ABDOMEN: Distended. EXTREMITIES: Mild bilateral edema. LABORATORY DATA: White blood cell count 4.8, hemoglobin 8.5, hematocrit 28.2, and platelet 132. Sodium is 140, potassium 4.4, chloride 104, bicarbonate 28, BUN 38, creatinine 1.7, and glucose is 186. Troponin is 0.021. INR was 1.6. EKG atrial fibrillation with occasional premature ventricular contractions, no acute ST-T wave changes. IMPRESSION: 1. Colon mass, suggestive of carcinoma. 2. Recent gastrointestinal hemorrhage. 3. Ischemic cardiomyopathy. 4. History of coronary artery bypass graft surgery. 5. History of ventricular tachycardia status post ablation. 6. Permanent atrial fibrillation. 7. Renal insufficiency. 8. History of deep vein thrombosis. PLAN: This gentleman has ischemic cardiomyopathy and underwent a recent PET scan did reveal ischemia/scar in the anterior wall. The patient will be at an increased risk of cardiac complication for undergoing general anesthesia for colon surgery. His blood pressure and heart rate should be monitored very closely. We would like to continue the patient on beta-mamadou therapy to prevent beta- mamadou withdrawal. We will follow this patient with you through his hospitalization. Job ID: [id number]
--- NOTE | 2020-09-22 13:27 | CT ---
CT ABDOMEN WITH CONTRAST CT PELVIS WITH CONTRAST: DATE: 09/22/2020 HISTORY: 80-year-old male with colon cancer. Initial staging. COMPARISON: None TECHNIQUE: IV injection of iodinated contrast media: administered. Oral contrast media:Administered FINDINGS: Four-chamber dilation of the heart. Cardiomegaly. Extensive atherosclerotic calcification of entire abdominal aorta and its branches, including SMA, sp lenic, and bilateral iliac, arteries. Origins of bilateral renal arteries, left greater than right affected. No hydronephrosis. A few tiny left renal calculi ranging from 1 mm to 3 mm. 2.3 cm partially exophytic right renal moderately low attenuation lesion with density of 26 Hounsfiel d units. Right renal mild malrotation. Spleen: 10.5 x 11 x 17.5 cm. Liver: No definite abnormality identified. Pancreas: A 2 x 2 x 1.3 cm cystic lesion at the body of pancreas. No pancreatic ductal dilation, calcifications, or acute pancreatitis No adrenal nodule. No small bowel dilation, ascites, pneumoperitoneum, or pleural effusion. Nonspecific enlarged 2.7 x 0.7 x 3.0 cm portacaval node. No significant iliac chain or retroperitoneal lymphadenopathy. No small bowel dilation. Unremarkable urinary bladder. Oral contrast material has reached the rectosigmoid junction. No oral contrast opacification of the rectum. No colonic diverticulitis. Cecum is in right upper quadrant. Normal appendix. Circumferential soft tissue mass almost obliterating lumen in ascending colon, consistent with colon cancer. Adjacent cluster of mildly enlarged mesenteric lymph nodes close to this. Adjacent mild fat stranding suggestive of edema.. IMPRESSION: 1) right-sided colon cancer: Apple core mass in ascending colon. 2) adjacent cluster of minimally enlarged right lateral mesenteric lymph nodes, and adjacent mild elda ma. 3) no evidence of liver metastasis, but the IV contrast opacification of the liver is poor. Perhaps t his is due to low cardiac output. 4) splenomegaly. 5) cardiomegaly with four-chamber dilation. 6) atherosclerosis of abdominal aorta and its branches. 7) 2.3 cm right renal lesion: Hemorrhagic renal cyst versus neoplasm. Recommend beginning evaluation with renal ultrasound. 8) mild left nephrolithiasis. 9) 2 cm cystic lesion at pancreatic body. Possibility of low-grade cystic pancreatic neoplasm. Recomm end follow-up CT abdomen with contrast in one year.
--- NOTE | 2020-09-22 14:35 | CON ---
DATE OF CONSULTATION: HISTORY OF PRESENT ILLNESS: Kenji Waterman is an 80-year-old male, who is , lives in [place] with his , has been on Coumadin for atrial fibrillation. He has had 2 ablations that have not resolved his atrial fibrillation. He has a defibrillator in left subclavian vein placed 2 years ago. He has had echocardiograms demonstrating global hypokinesis, EF 35% to 40%, followed by Dr. Saravia. The patient had a coronary artery bypass graft, 5 vessels, years ago, had a stress test in 2018 that was negative for ischemia. The patient reports having had a stress test earlier this year or late last year in Dr. Saravia's office that was not revealing any ischemia. The patient has not had any dyspnea or chest pain or symptoms of coronary artery disease. The patient noted blood per stool and was feeling some malaise, was admitted, noted to have a hemoglobin of 7, given 1 unit of blood, and Dr. Welch consulted, and colonoscopy revealed hepatic flexure colon mass. The patient is drinking contrast for a CT scan of the abdomen and pelvis. Upper endoscopy revealed a solitary gastric erosion. The mass in the proximal transverse colon hepatic flexure revealed a 5 x 10 cm mass occupying one-third of circumference, nonobstructing, biopsies obtained. It was injected. Remainder of the colon was unremarkable. I have talked to Dr. Antony Saravia, who will see the patient today for preoperative evaluation. Plan at this time is for laparoscopic, possible open right colon resection. General anesthesia, TAP block. He understands risks and benefits of the procedure and consents. Risks of infection, bleeding, reoperation, anastomotic leakage discussed. ALLERGIES: NONE. TOBACCO: None. ALCOHOL: None. MEDICATIONS: At home; 1. Omeprazole. 2. Levothyroxine. 3. Insulin 13 units subcu at bedtime. 4. Vascepa. 5. Carvedilol. 6. Coreg 12.5 mg b.i.d. 7. Atorvastatin. 8. Aspirin. 9. Coumadin 5 mg a day, held for last 2 days. 10. Furosemide 40 mg a day. PAST SURGICAL HISTORY: Coronary artery bypass grafting years past; defibrillator, left subclavian vein left chest, ablations, right total knee. PAST MEDICAL HISTORY: 1. Coronary artery disease. 2. Atrial fibrillation, chronic anticoagulation. 3. Diabetes mellitus, insulin dependent. 4. Hypertension. Note, this is patient's 1st colonoscopy. SOCIAL HISTORY: The patient lives at home with his . 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 He just recently finished a in his detention. FAMILY HISTORY: No known colon cancer history. REVIEW OF SYSTEMS: Ten point otherwise noncontributory except as noted above. PHYSICAL EXAMINATION: VITAL SIGNS: Height 5 feet 10 inches, weight 229 pounds, 32 BMI. Temperature 98.6, pulse 73, blood pressure 142/60. LUNGS: Clear to auscultation. CARDIAC: Regular rate and rhythm without murmur or gallop. ABDOMEN: Soft, slightly tympanitic from recent colonoscopy. No masses. Prominent fatty tissue masses lower abdomen more prominent right than left. No evidence of ventral hernia. EXTREMITIES: No ankle edema. LABORATORY DATA: Hemoglobin 8.5 today after 1 unit of blood yesterday, 7.6 on admission. BUN 38, creatinine 1.79. No prior history of CKD. ASSESSMENT AND PLAN: 1. Right colon cancer hepatic flexure. We would recommend laparoscopic-assisted possible open right colectomy . Risks of infection, bleeding, reoperation, open procedure, anastomotic leakage, reoperation discussed. Questions answered. 2. Atrial fibrillation, on chronic anticoagulation. Coumadin has been held. His last PT was yesterday at 19.8, INR 1.6. Hold anticoagulation. He can resume aspirin. 3. Defibrillator, left subclavian vein. 4. Coronary artery bypass grafting years ago. Cardiac stress test earlier this year unremarkable. Cardiomyopathy, 35% to 40% EF. Awaiting for Dr. Saravia's preoperative evaluation. 5. Insulin-dependent diabetes mellitus. 6. Hypertension. 7. Anemia secondary to colon cancer (prehospitalization). 8. Chronic kidney disease. 9. Slight obesity. Job ID: [id number]
[2020-09-22] MEDS: Pantoprazole 40 MG VIAL IVP SCH (15:00)
[2020-09-22] MEDS: HumaLOG 300 UNITS/3 ML VIAL SC PRN (17:26)
[2020-09-22] MEDS: Carvedilol 6.25 MG TAB PO SCH (17:26)
[2020-09-22] MEDS: Insulin Glargine 12 UNITS in Pre-Filled Syringe 1 EACH SC SCH (20:47)
[2020-09-23 06:49] LABS: #Eosinphils 0.1 thou/uL (0.0-0.7); #Lymphocytes 0.9 thou/uL (1.20-3.40); #Monocytes 0.5 thou/uL (0.11-0.59); #Neutrophils 4.6 thou/uL (1.40-6.50); %Basophils 0.6 % (0.0-1.0); %Eosinophils 1.6 % (0.0-10.0); %Lymphocytes 14.1 % (21.0-51.0); %Monocytes 8.1 % (0.0-10.0); %Neutrophils 75.7 % (42.0-75.0); Hemoglobin 8.6 g/dL (14.0-18.0); Mean Corpuscular HGB CONC 29.7 g/dL (32.0-36.0); Mean Corpuscular Hemoglobin 20.8 pg (27.0-31.0); Mean Platelet Volume 11.8 fL (7.4-10.4); Platelet Count 124 thou/uL (130-400); RBC Distribution Width 19.9 % (11.5-14.5); Red Blood Cell (RBC) Count 4.14 mill/uL (4.70-6.10); White Blood Cell (WBC) Count 6.1 thou/uL (4.8-10.8)
[2020-09-23] MEDS: Carvedilol 6.25 MG TAB PO SCH ×2 (06:53→21:26)
[2020-09-23 07:12] LABS: ALT (SGPT) 11 U/L (8-55); AST (SGOT) 13 U/L (5-34); Albumin 3.8 g/dL (3.4-4.8); Alkaline Phosphatase 57 U/L (40-110); Anion Gap 14 mmol/L (10-20); BUN (Urea Nitrogen) 24 mg/dL (8.4-25.7); Bilirubin, Total 1.1 mg/dL (0.2-1.2); Calc. Creatinine Clearance 51 mL/min (70-130); Carbon Dioxide 26 mmol/L (23-31); Chloride 103 mmol/L (98-107); Glucose 220 mg/dL (83-110); Potassium 4.4 mmol/L (3.5-5.1); Protein, Total 6.8 g/dL (5.8-8.1); Sodium 139 mmol/L (136-145)
[2020-09-23] MEDS ORDERED: Norepinephrine 4 MG/4 ML VIAL ONE (08:24)
[2020-09-23] MEDS ORDERED: Phenylephrine 10 MG/ML VIAL ONE (08:24)
[2020-09-23] MEDS ORDERED: Fentanyl 100 MCG/2 ML VIAL ONE ×2 (08:36)
[2020-09-23] MEDS ORDERED: Ketamine 50 MG/ML (10ML VIAL) ONE (08:36)
[2020-09-23] MEDS: Pantoprazole 40 MG VIAL IVP SCH (08:40)
[2020-09-23] MEDS ORDERED: Lidocaine 1% w/Epinephrine 1:100K 20 ML VIAL ONE (08:56)
[2020-09-23] MEDS ORDERED: Bupivacaine 0.25% HCL 30 ML VIAL ONE (08:56)
[2020-09-23] MEDS ORDERED: Lidocaine 1% PF 5 ML VIAL ONE (10:15)
[2020-09-23] MEDS ORDERED: Rocuronium Bromide 10 MG/ML (10ML VIAL) ONE (10:15)
[2020-09-23] MEDS ORDERED: Ondansetron PF 4 MG/2 ML Vial ONE (10:15)
[2020-09-23] MEDS ORDERED: PROPOFOL 200 MG/20 ML VIAL ONE (10:15)
[2020-09-23] MEDS ORDERED: SUGAMMADEX SODIUM 500 MG/5 ML VIAL ONE (11:27)
[2020-09-23] MEDS ORDERED: Ketorolac Tromethamine 30 MG/ML VIAL IVP PRN ×2 (11:39→12:16)
[2020-09-23] MEDS ORDERED: Morphine 2 MG/ML VIAL SLOW IVP PRN (11:39)
[2020-09-23] MEDS ORDERED: Morphine 4 MG/ML VIAL SLOW IVP PRN (11:39)
[2020-09-23] MEDS ORDERED: traMADol HCl 50 MG TAB PO PRN (11:44)
[2020-09-23] MEDS ORDERED: diphenhydrAMINE 50 MG/ML VIAL IM PRN ×2 (12:14→12:15)
[2020-09-23] MEDS ORDERED: diphenhydrAMINE 50 MG/ML VIAL IVP PRN ×2 (12:14→12:15)
[2020-09-23] MEDS ORDERED: Promethazine HCl 25 MG/ML VIAL IM PRN ×3 (12:14→12:15)
[2020-09-23] MEDS ORDERED: diphenhydrAMINE 25 MG CAP PO PRN ×2 (12:14→12:15)
[2020-09-23] MEDS ORDERED: Zolpidem Tartrate 5 MG TAB PO PRN ×2 (12:14→12:15)
[2020-09-23] MEDS ORDERED: Naloxone HCl 0.4 mg/ml Vial IV PRN ×2 (12:14→12:15)
[2020-09-23] MEDS ORDERED: Ondansetron PF 4 MG/2 ML Vial IVP PRN ×2 (12:14→12:15)
[2020-09-23] MEDS ORDERED: Ondansetron HCl/PF 4 MG/2 ML Vial IVP PRN (12:14)
[2020-09-23] MEDS ORDERED: Promethazine HCl 25 MG/ML VIAL SLOW IVP PRN (12:14)
[2020-09-23] MEDS ORDERED: HYDROmorphone 10 mg/100 ml CADD IVPB PRN (12:15)
[2020-09-23] MEDS ORDERED: Acetaminophen 500 MG TAB PO SCH (12:15)
[2020-09-23] MEDS ORDERED: Communication Order-Pharmacy FS SCH ×2 (12:15)
--- NOTE | 2020-09-23 12:24 | OP ---
DATE OF PROCEDURE: 09/23/2020 PREOPERATIVE DIAGNOSES: 1. Right colon cancer, ascending colon. 2. Coronary artery disease. 3. Cardiomyopathy. 4. Defibrillator status. 5. Obesity. 6. Diabetes. 7. Anemia. POSTOPERATIVE DIAGNOSES: 1. Right colon cancer, ascending colon. 2. Coronary artery disease. 3. Cardiomyopathy. 4. Defibrillator status. 5. Obesity. 6. Diabetes. 7. Anemia. Preoperative CAT scan negative for metastasis. Preoperative CEA level less than 2. PROCEDURE: Laparoscopy converted open right colectomy with primary ileocolic (transverse) anastomosis, stapled. ANESTHESIA: General. ESTIMATED BLOOD LOSS: 50 mL. BLOOD TRANSFUSIONS: None. DESCRIPTION OF PROCEDURE: The patient was taken to the operating room, where under general anesthesia, the abdomen was prepared with ChloraPrep and draped in routine fashion. Nevarez placed at the beginning of the procedure, left in place postoperatively. Infraumbilical incision was made. Pneumoperitoneum to 15 mmHg obtained with a Veress needle, replaced with a 5 port. Left upper midline incision made and a 5 port placed. Left lower midline incision made and another 5 port placed. The patient is morbidly obese. There was abundant fatty tissue. I could not see well despite pneumoperitoneum of 15 mmHg. Thus, conversion to open performed. Midline incision was made, carried down to skin and subcutaneous tissue, centered about the umbilicus, more directed to the upper abdomen. The patient had a paucity of subcutaneous fat. Most of his obesity was intraabdominal. A Bookwalter retractor was used. Right colon was mobilized. Hepatic flexure mobilized using the cautery. The tumor mass was noted in ascending colon. Mesentery was adjacent to the terminal ileum, divided with cautery. Ileum was divided with a CHRIS stapler, approximately 6 inches from the ileocecal valve. Proximal transverse colon mobilized. Gastrocolic ligament mobilized and colon divided with a CHRIS stapler. Duodenum identified. His right colon was mobilized. The mesentery was taken out with a LigaSure, taking the right ileocolic pedicle divided between clamps and ligated with 2-0 silk ties. Duodenum identified, kept free of harm. Good hemostasis noted. Ileocolic anastomosis performed with 75 CHRIS stapler 2 fires, closing the common enterotomy with the second fire. Staple line reinforced with interrupted Lembert suture of 3-0 silk and omentum placed to reinforce it. Mesenteric defect closed with 3-0 silk [id number]. Good hemostasis noted. Abdominal cavity irrigated. Irrigant evacuated. Good hemostasis noted. Gallbladder appeared to be normal. Liver appeared slightly enlarging and fatty. Good hemostasis noted. Sponge and needle counts were correct. Midline fascia closed with continuous suture of #1 PDS. Gloves had been changed after the anastomosis. Skin and subcutaneous tissues irrigated. Skin approximated with onur loosely and YOSI wound incisional suction device was placed. The patient tolerated the procedure well, without complications. No pressors were necessary. No transfusion necessary. Preoperative hemoglobin 8.6 after 1 unit of blood transfused preoperatively. Job ID: [id number]
[2020-09-23] MEDS ORDERED: Acetaminophen 500 MG TAB ONE (13:19)
[2020-09-23] MEDS: Lactated Ringer's 1,000 ML IV SCH ×2 (14:12→21:38)
--- NOTE | 2020-09-23 14:54 | CON ---
DATE OF CONSULTATION: 09/23/2020 This encompassed 75 minutes time. Of that time, greater than 50% spent with the patient and/or on the patient's unit in the hospital. REASON FOR CONSULTATION: Shortness of breath. HISTORY OF PRESENT ILLNESS: Mr. Waterman is an 80-year-old male who was admitted to hospital 09/21/2020, by the hospitalist. His principal complaint at that time was rectal bleeding and dizziness. He has complained of shortness of breath, which has been increasing over the last month. This is mainly exertional dyspnea. He has been seen by my former partner, Dr. Haji, in the past while in the hospital regarding medical management, but he has never had a formal workup for his shortness of breath. Specifically, he has never had PFTs. He was a 3 [id number] smoker between age 18 and 56. He quit back in 1996. He does not take oxygen at home and does not take any bronchodilators. He has a history of diastolic and systolic cardiac dysfunction. He has moderate mitral regurgitation by an echo performed in 2018. He has also had AICD placement and heart ablation in the past. PAST MEDICAL HISTORY: See above. Additionally, he has; 1. Coronary artery disease. 2. Pneumothorax in the past. 3. DVT in the right leg. 4. Skin cancer. 5. Gastroesophageal reflux. 6. Osteoarthritis. 7. Diabetes mellitus, type 2. 8. Hyperlipidemia. 9. Atrial fibrillation. PAST SURGICAL HISTORY: 1. Five-vessel coronary artery bypass grafting surgery. 2. Nasal surgery. 3. Skin cancer removal. 4. Right knee replacement. 5. AICD placement. 6. Cardiac ablation x2. 7. He has had partial colectomy today for colon cancer. SOCIAL HISTORY: See above. He does not consume alcohol. 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 REVIEW OF SYSTEMS: See above. ALLERGIES: NONE. MEDICATIONS: Prior to admission; 1. Coreg. 2. Atorvastatin. 3. Furosemide. 4. Coumadin. 5. NovoLog insulin. PHYSICAL EXAMINATION: VITAL SIGNS: His temperature is 98.5, pulse has been running in the 70s, O2 saturations running in the low 90s on room air, blood pressure 147/66. He is 5 feet 10 inches, weighs 229. His BMI is 32.9. HEENT: Class 3 Mallampati airway. NECK: No adenopathy or JVD. LUNGS: He has expiratory wheezing, which is mild, mainly on his left lung. CARDIOVASCULAR: S1 and S2, regular with some ectopy. He has a 2/6 systolic murmur. ABDOMEN: Soft and nontender. Has a low midline surgical dressing. EXTREMITIES: No clubbing, cyanosis, or edema. LABORATORY DATA: White blood cell count 6.4, hematocrit 29.0, and platelet count 124. INR was 1.6 at time of admission. Sodium 139, potassium 4.4, chloride 103, CO2 of 26, BUN 24, creatinine 1.6, and glucose 120. Chest x-ray shows cardiomegaly without evidence of mass, effusion, or infiltrate. ASSESSMENT: Multifactorial dyspnea. This patient clearly has some serious cardiac issues, which while stable, will contribute to continued dyspnea, including systolic and diastolic cardiac dysfunction, mitral regurgitation, and use of beta-mamadou. Additionally, he probably has some underlying chronic obstructive pulmonary disease, which has not been evaluated with spirometry in the past. I do not think pulmonary thromboembolism is likely at the current time given the fact that he takes Coumadin unless he has chronic thromboemboli from the past. RECOMMENDATIONS: 1. We would recommend outpatient PFTs. 2. Continue treatment of heart failure and consider decreasing beta blockers if appropriate. 3. Empiric bronchodilators. 4. Incentive spirometry. 5. Follow up in the office in 1 to 2 months. Job ID: [id number]
[2020-09-23] MEDS: HumaLOG 300 UNITS/3 ML VIAL SC PRN (17:29)
--- NOTE | 2020-09-23 18:55 | PRG ---
DATE OF SERVICE: 09/23/2020 SUBJECTIVE: Mr. Waterman is in surgery today. He is still pretty sleepy, although he is breathing better per his nurses. Daughter is here at the bedside. He is arousable and can talk to me. He states he feels pretty rough, but does not feel short of breath. He denies any severe abdominal pain. MEDICATIONS: Reviewed. 1. LR at 100. 2. Protonix. 3. His previous medicines. OBJECTIVE: VITAL SIGNS: Temperature is 97, blood pressure 149/90, pulse 87. ABDOMEN: Soft, nontender. LABORATORY DATA: Hemoglobin 8.6, white count 6.1, platelet count 124 and that was this morning. CEA is 1.55. Liver function tests normal. CT showed no evidence of metastatic disease. ASSESSMENT: 1. Status post resection of colon cancer today discovered in workup for severe anemia, stable. Postoperative day zero. 2. Cardiomyopathy, stable. 3. Obesity, stable. 4. Shortness of breath, improved. He is on a Venturi mask. The nurse feels he is doing much better with that right now. PLAN: At this time, we will await pathology. Follow from distance. He will need a followup colonoscopy in one year depending on overall health at that time. If I can be of any further assistance in the patient's care, please do not hesitate to contact me. Job ID: [id number]
--- NOTE | 2020-09-23 19:24 | PDOC.HOSPP ---
- Subjective Encounter Date: 09/23/20 Encounter Time: 16:00 Subjective: Patient seen and examined for GI bleeding with colon mass. S/p partial colectomy. Pain controlled with INSTRUCTIONAL SYSTEMS SPECIALIST. No chest pain or palpitations reported. - Objective Vital Signs & Weight: Vital Signs (12 hours) Temp Pulse BP Pulse Ox 09/23/20 16:13 94 L 09/23/20 16:00 95 09/23/20 15:46 97.8 F 09/23/20 08:00 98.5 F 78 147/66 H 90 L Weight Weight 229 lb 7 oz Most Recent Monitor Data Heart Rate from ECG 83 NIBP 152/64 NIBP BP-Mean 93 Respiration from ECG 10 SpO2 98 I&O: 09/22/20 09/23/20 09/24/20 06:59 06:59 06:59 Intake Total 830 1850 800 Output Total 350 Balance 830 1850 450 Result Diagrams: 09/23/20 06:26 09/23/20 06:26 Additional Labs: Accuchecks 09/23/20 09/23/20 09/23/20 16:40 11:56 06:31 POC Glucose 209 H 191 H 178 H 09/22/20 20:34 POC Glucose 210 H Abnormal Lab Results - Last 48 hrs 09/21/20 12:28: Crossmatch See Detail 09/22/20 06:58: BUN 38 H, Creatinine 1.70 H 09/22/20 06:58: RBC 4.04 L, Hgb 8.5 L, Hct 28.2 L, MCV 69.8 L, MCH 21.0 L, MCHC 30.0 L, RDW 19.7 H, MPV 11.7 H, Lymphocytes # 1.1 L 09/23/20 06:26: Creatinine 1.65 H 09/23/20 06:26: RBC 4.14 L, Hgb 8.6 L, Hct 29.0 L, MCV 70.0 L, MCH 20.8 L, MCHC 29.7 L, RDW 19.9 H, Plt Count 124 L, MPV 11.8 H, Neutrophils % 75.7 H, Lymphocytes % 14.1 L, Lymphocytes # 0.9 L Microbiology - Entire Visit 09/21/20 12:35 Stool - Pending Stool Occult Blood (BENIGNO) - Final Radiology Reviewed by me: Yes (CT abdomenreviewed) EKG Reviewed by me: Yes (Sinus rhythm on telemetry) Hospitalist ROS - Review of Systems Respiratory: denies: cough, dry, shortness of breath, hemoptysis, SOB with excertion, pleuritic pain, sputum, wheezing, other Cardiovascular: denies: chest pain, palpitations, orthopnea, paroxysmal noc. dyspnea, edema, light headedness, other - Medication Medications: Active Medications Generic Name Dose Route Start Last Admin Trade Name Freq PRN Reason Stop Dose Admin Insulin Glargine 12 units/ 0.12 mls @ 0 mls/hr 09/21/20 21:00 09/22/20 20:47 Miscellaneous Medication SC 0.12 mls HS RAJWINDER Administration Lactated Ringer's 1,000 mls @ 100 mls/hr 09/23/20 11:45 09/23/20 14:12 Lactated Ringer's IV 1,000 mls .Q10H RAJWINDER Administration Insulin Human Lispro 0 units 09/21/20 13:45 09/23/20 17:29 Humalog 300 Units/3 Ml Vial SC 3 units .MILD SLIDING SCALE PRN Administration Mild Correctional Scale Pantoprazole Sodium 40 mg 09/23/20 09:00 09/23/20 08:40 Pantoprazole 40 Mg Vial IVP Not Given DAILY RAJWINDER - Exam General Appearance: ill appearing Neck: supple, no JVD Heart: RRR, no gallops Respiratory: no wheezes, no ronchi Gastrointestinal: soft, no guarding, no rigidity Extremities: no cyanosis Neurological: no new deficit Hosp A/P - Plan DVT proph w/SCDs 80-year-old male with coronary artery disease, GERD, diabetes mellitus type 2, atrial fibrillation on anticoagulation and hyperlipidemia presented to the emergency room on 09/21 with shortness of breath on exertion as well as anemia. CT scan of the abdomen showed apple core mass in the ascending colon with splenomegaly please refer to the history and physical dated 09/21 for further details. The patient was admitted to the hospital with a diagnosis of symptomatic anemia likely due to GI bleeding. His hemoglobin on admission was 7.6. He has received total of 1 unit PRBC this admission. He was evaluated by gastroenterology. His EGD/colonoscopy on 09/22 showed solitary gastric erosion in the mid body along with ulcerative colon mass in the proximal transverse colon with sigmoid diverticulosis. The biopsy of the colon mass was consistent with invasive moderately differentiated adenocarcinoma. CT also showed a cystic pancreatic lesionCT scan of the pancreatic lesion after 2 years is recommended. On 09/23, patient underwent laparoscopy converted to open right colectomy with primary ileocolic anastomosis. He was monitored in the IMCU post surgery. His pain was controlled with INSTRUCTIONAL SYSTEMS SPECIALIST. 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 Patient on full liquid diet. Continue IV hydration. Continue current dose of Lantus with carvedilol, gabapentin and levothyroxine. Continue PPIs. INSTRUCTIONAL SYSTEMS SPECIALIST for pain control. Physical therapy consultation. A.m. labs. Transfuse as needed. Plan discussed with the family at the bedside. Lantus to 10 units every morning.
[2020-09-23] MEDS: Enoxaparin Sodium 40 MG/0.4 ML SYRINGE SC SCH (21:25)
[2020-09-23] MEDS: Gabapentin 100 MG CAP PO SCH (21:27)
[2020-09-24 04:00] LABS: #Lymphocytes 0.8 thou/uL (1.20-3.40); #Monocytes 0.5 thou/uL (0.11-0.59); #Neutrophils 9.6 thou/uL (1.40-6.50); %Basophils 0.1 % (0.0-1.0); %Eosinophils 0.1 % (0.0-10.0); %Lymphocytes 6.9 % (21.0-51.0); %Monocytes 4.8 % (0.0-10.0); %Neutrophils 88.2 % (42.0-75.0); Mean Corpuscular HGB CONC 29.3 g/dL (32.0-36.0); Mean Corpuscular Hemoglobin 20.7 pg (27.0-31.0); Mean Corpuscular Volume 70.7 fL (78.0-98.0); Mean Platelet Volume 7.4 fL (7.4-10.4); Platelet Count 104 thou/uL (130-400); RBC Distribution Width 19.8 % (11.5-14.5); Red Blood Cell (RBC) Count 3.88 mill/uL (4.70-6.10); White Blood Cell (WBC) Count 10.8 thou/uL (4.8-10.8)
[2020-09-24 04:17] LABS: Phosphorus 4.7 mg/dL (2.3-4.7)
[2020-09-24 04:20] LABS: Anion Gap 13 mmol/L (10-20); BUN (Urea Nitrogen) 25 mg/dL (8.4-25.7); Calc. Creatinine Clearance 56 mL/min (70-130); Calcium 8.4 mg/dL (7.8-10.44); Carbon Dioxide 26 mmol/L (23-31); Chloride 104 mmol/L (98-107); Glucose 238 mg/dL (83-110); Magnesium 1.9 mg/dL (1.6-2.6); Potassium 4.9 mmol/L (3.5-5.1); Sodium 138 mmol/L (136-145)
[2020-09-24] MEDS: Levothyroxine Sodium 50 MCG TAB PO SCH (05:59)
[2020-09-24] MEDS: HumaLOG 300 UNITS/3 ML VIAL SC PRN ×2 (05:59→11:21)
[2020-09-24] MEDS: Gabapentin 100 MG CAP PO SCH ×2 (08:38→20:20)
[2020-09-24] MEDS: Aspirin Chewable 81 MG TAB PO SCH (08:38)
[2020-09-24] MEDS: Carvedilol 6.25 MG TAB PO SCH ×2 (08:39→20:19)
[2020-09-24] MEDS: Pantoprazole 40 MG VIAL IVP SCH (08:40)
[2020-09-24] MEDS ORDERED: Insulin Glargine 10 UNITS in Pre-Filled Syringe 1 EACH SC SCH (09:00)
[2020-09-24] MEDS ORDERED: Furosemide 40 MG/4 ML VIAL SLOW IVP SCH (11:00)
[2020-09-24] MEDS: Lactated Ringer's 1,000 ML IV SCH ×2 (11:19→16:13)
--- NOTE | 2020-09-24 15:19 | PRG ---
DATE OF SERVICE: 09/24/2020 SUBJECTIVE: Mr. Waterman is doing well today. He had some nausea when he was trying to walk and transfer this morning, but otherwise has not been nauseated. He denies having any abdominal pain today. His EDI PROGRAMMER is infusing. He reports no flatus, no stool. He did belch when I was present. Findings at operation were reviewed with him. OBJECTIVE: VITAL SIGNS: Heart rate 94, blood pressure 152/68, respiratory rate 22 to 25. The patient states that he is not dyspneic since his surgery. LUNGS: Clear to auscultation. CARDIAC: Regular rate and rhythm without murmur or gallop. ABDOMEN: Soft, protuberant, baseline. Bowel sounds diminished. Midline incisional wound suction device in place. We will plan to remove that 5 days postoperatively probably at home. LABORATORY DATA: Sodium is 138, potassium 4.9, BUN 25, creatinine 1.49, glucose 238. He is on sliding scale. ASSESSMENT AND PLAN: 1. Status post right colectomy. Continue full liquids. If he has any vomiting, the nurses are to call me. Await bowel function which will occur spontaneously. 2. Coronary artery disease and cardiomyopathy. Monitor in IMCU. 3. Chronic kidney disease, stable, actually improved perioperatively with hydration. 4. Dr. Saravia has ordered diuretic. 5. Right colon cancer. Await pathology available next week. CEA level normal 1.55. Alpha fetoprotein less than 2. CAT scan without evidence of metastatic disease. Chest x-ray without evidence of metastatic disease. Job ID: [id number]
[2020-09-24] MEDS ORDERED: Carvedilol 6.25 MG TAB PO SCH (16:15)
[2020-09-24] MEDS ORDERED: Metoprolol Tartrate 5 MG/5 ML VIAL IVP SCH (18:15)
--- NOTE | 2020-09-24 19:34 | PDOC.HOSPP ---
- Subjective Encounter Date: 09/24/20 Encounter Time: 13:30 Subjective: Patient seen and examined for GI bleeding due to colon mass requiring surgical resection. Abdominal pain improving. Denies any nausea. Tolerating current diet. Sitting on the chair. No chest pain or shortness of breath reported. - Objective Vital Signs & Weight: Vital Signs (12 hours) Temp Pulse Pulse Pulse Resp BP BP 09/24/20 15:38 96.7 F L 09/24/20 15:02 101 H 18 09/24/20 13:55 94 91 152/68 H 134/67 09/24/20 11:49 97.0 F L 09/24/20 08:16 96.8 F L 09/24/20 08:00 09/24/20 07:35 81 12 Pulse Ox Pulse Ox Pulse Ox 09/24/20 15:38 09/24/20 15:02 96 09/24/20 13:55 95 94 L 09/24/20 11:49 09/24/20 08:16 09/24/20 08:00 97 09/24/20 07:35 100 Weight Weight 229 lb 7 oz Most Recent Monitor Data Heart Rate from ECG 92 NIBP 140/68 NIBP BP-Mean 92 Respiration from ECG 17 SpO2 98 I&O: 09/23/20 09/24/20 09/25/20 06:59 06:59 06:59 Intake Total 1850 2150 2050 Output Total 700 1225 Balance 1850 1450 825 Result Diagrams: 09/24/20 03:16 09/24/20 03:16 Additional Labs: Accuchecks 09/24/20 09/24/20 09/24/20 16:45 10:25 05:32 POC Glucose 207 H 244 H 212 H 09/23/20 20:44 POC Glucose 222 H Abnormal Lab Results - Last 48 hrs 09/21/20 12:28: Crossmatch See Detail 09/23/20 06:26: Creatinine 1.65 H 09/23/20 06:26: RBC 4.14 L, Hgb 8.6 L, Hct 29.0 L, MCV 70.0 L, MCH 20.8 L, MCHC 29.7 L, RDW 19.9 H, Plt Count 124 L, MPV 11.8 H, Neutrophils % 75.7 H, Lymphocytes % 14.1 L, Lymphocytes # 0.9 L 09/24/20 03:16: Creatinine 1.49 H 09/24/20 03:16: RBC 3.88 L, Hgb 8.0 L, Hct 27.4 L, MCV 70.7 L, MCH 20.7 L, MCHC 29.3 L, RDW 19.8 H, Plt Count 104 L, Neutrophils % 88.2 H, Lymphocytes % 6.9 L, Neutrophils # 9.6 H, Lymphocytes # 0.8 L Microbiology - Entire Visit 09/21/20 12:35 Stool - Pending Stool Occult Blood (BENIGNO) - Final EKG Reviewed by me: Yes (Rajendra rogers on telemetry) Hospitalist ROS - Review of Systems Respiratory: denies: cough, dry, shortness of breath, hemoptysis, SOB with excertion, pleuritic pain, sputum, wheezing, other Cardiovascular: denies: chest pain, palpitations, orthopnea, paroxysmal noc. dyspnea, edema, light headedness, other - Medication Medications: Active Medications Generic Name Dose Route Start Last Admin Trade Name Freq PRN Reason Stop Dose Admin Albuterol/Ipratropium 3 ml 09/23/20 19:00 09/24/20 15:02 Ipratropium/Albuterol Sulfate 3 Ml Neb EZPAP 3 ml [id number] RAJWINDER Administration Aspirin 81 mg 09/24/20 09:00 09/24/20 08:38 Aspirin Chewable 81 Mg Tab PO 81 mg DAILY RAJWINDER Administration Carvedilol 12.5 mg 09/23/20 21:00 09/24/20 08:39 Carvedilol 6.25 Mg Tab PO 12.5 mg BID RAJWINDER Administration Enoxaparin Sodium 40 mg 09/23/20 21:00 09/23/20 21:25 Enoxaparin Sodium 40 Mg/0.4 Ml Syringe SC 40 mg 2100 RAJWINDER Administration Gabapentin 100 mg 09/23/20 21:00 09/24/20 08:38 Gabapentin 100 Mg Cap PO 100 mg BID RAJWINDER Administration Insulin Glargine 10 units/ 0.1 mls @ 0 mls/hr 09/24/20 09:00 09/24/20 08:41 Miscellaneous Medication SC Not Given QAM RAJWINDER Lactated Ringer's 1,000 mls @ 50 mls/hr 09/24/20 15:04 09/24/20 16:13 Lactated Ringer's IV Not Given .Q20H RAJWINDER Insulin Human Lispro 0 units 09/21/20 13:45 09/24/20 11:21 Humalog 300 Units/3 Ml Vial SC 3 unit .MILD SLIDING SCALE PRN Administration Mild Correctional Scale Levothyroxine Sodium 50 mcg 09/24/20 06:00 09/24/20 05:59 Levothyroxine Sodium 50 Mcg Tab PO 50 mcg 0600 RAJWINDER Administration Metoprolol Tartrate 5 mg 09/24/20 18:15 09/24/20 19:19 Metoprolol Tartrate 5 Mg/5 Ml Vial IVP 09/24/20 20:15 Not Given NOW RAJWINDER Pantoprazole Sodium 40 mg 09/23/20 09:00 09/24/20 08:40 Pantoprazole 40 Mg Vial IVP 40 mg DAILY RAJWINDER Administration - Exam General Appearance: NAD Neck: supple, no JVD Heart: no gallops, no rubs, irregular Respiratory: no wheezes, no rales Gastrointestinal: soft, no guarding, no rigidity Extremities: no cyanosis, no clubbing Musculoskeletal: generalized weakness Psychiatric: normal affect, A&O x 3 Hosp A/P - Plan DVT proph w/SCDs 80-year-old male with coronary artery disease, GERD, diabetes mellitus type 2, atrial fibrillation on anticoagulation and hyperlipidemia presented to the emergency room on 09/21 with shortness of breath on exertion as well as anemia. CT scan of the abdomen showed apple core mass in the ascending colon with splenomegaly please refer to the history and physical dated 09/21 for further details. The patient was admitted to the hospital with a diagnosis of symptomatic anemia likely due to GI bleeding. His hemoglobin on admission was 7.6. He has received total of 1 unit PRBC this admission. He was evaluated by gastroenterology. His EGD/colonoscopy on 09/22 showed solitary gastric erosion in the mid body along with ulcerative colon mass in the proximal transverse colon with sigmoid diverticulosis. The biopsy of the colon mass was consistent with invasive moderately differentiated adenocarcinoma. CT also showed a cystic pancreatic lesionCT scan of the pancreatic lesion after 2 years is recommended. On 09/23, patient underwent laparoscopy converted to open right colectomy with primary ileocolic anastomosis. He was monitored in the IMCU post surgery. His pain was controlled with [employer]. 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 Continue physical therapy. Hemoglobin 8.0 today. Initiate electrolyte replacement protocol. Increase Lantus to 15 units daily continue c urrent dose of carvedilol. Reduce IV fluid. Continue levothyroxine and other medications as above. Continue PPIsprobably changed to p.o. in a.m. Continue full liquid diet. A.m. labs
[2020-09-24] MEDS ORDERED: Magnesium 2 GM/50 ML 2 GM in Premix Bag 1 BAG IVPB SCH (19:45)
[2020-09-24] MEDS ORDERED: Electrolyte Replacement Protocol 1 EACH FS SCH (19:45)
[2020-09-24] MEDS: Enoxaparin Sodium 40 MG/0.4 ML SYRINGE SC SCH (20:20)
[2020-09-25] MEDS: Lactated Ringer's 1,000 ML IV SCH ×2 (01:11→18:09)
[2020-09-25 04:11] LABS: #Eosinphils 0.1 thou/uL (0.0-0.7); #Lymphocytes 1.1 thou/uL (1.20-3.40); #Monocytes 0.5 thou/uL (0.11-0.59); #Neutrophils 4.6 thou/uL (1.40-6.50); %Basophils 0.7 % (0.0-1.0); %Eosinophils 0.9 % (0.0-10.0); %Lymphocytes 17.1 % (21.0-51.0); %Monocytes 8.1 % (0.0-10.0); %Neutrophils 73.2 % (42.0-75.0); Hemoglobin 7.5 g/dL (14.0-18.0); Mean Corpuscular HGB CONC 29.4 g/dL (32.0-36.0); Mean Corpuscular Hemoglobin 20.6 pg (27.0-31.0); Mean Corpuscular Volume 70.2 fL (78.0-98.0); Mean Platelet Volume 5.7 fL (7.4-10.4); Platelet Count 97 thou/uL (130-400); RBC Distribution Width 19.2 % (11.5-14.5); Red Blood Cell (RBC) Count 3.63 mill/uL (4.70-6.10); White Blood Cell (WBC) Count 6.3 thou/uL (4.8-10.8)
[2020-09-25 04:41] LABS: Anion Gap 13 mmol/L (10-20); BUN (Urea Nitrogen) 33 mg/dL (8.4-25.7); Calc. Creatinine Clearance 48 mL/min (70-130); Calcium 8.5 mg/dL (7.8-10.44); Carbon Dioxide 29 mmol/L (23-31); Chloride 100 mmol/L (98-107); Glucose 224 mg/dL (83-110); Magnesium 2.2 mg/dL (1.6-2.6); Phosphorus 3.1 mg/dL (2.3-4.7); Sodium 137 mmol/L (136-145)
[2020-09-25] MEDS: Levothyroxine Sodium 50 MCG TAB PO SCH (06:46)
[2020-09-25] MEDS: HumaLOG 300 UNITS/3 ML VIAL SC PRN ×3 (06:49→17:55)
[2020-09-25] MEDS ORDERED: Insulin Glargine 15 UNITS in Pre-Filled Syringe 1 EACH SC SCH (09:00)
[2020-09-25] MEDS: Aspirin Chewable 81 MG TAB PO SCH (09:10)
[2020-09-25] MEDS: Carvedilol 6.25 MG TAB PO SCH ×3 (09:10→21:32)
[2020-09-25] MEDS: Gabapentin 100 MG CAP PO SCH ×2 (09:11→21:32)
[2020-09-25] MEDS: Pantoprazole 40 MG VIAL IVP SCH (09:13)
[2020-09-25] MEDS ORDERED: Fentanyl 100 MCG/2 ML VIAL IV PRN (09:49)
[2020-09-25] MEDS ORDERED: HYDROcodone/Acetaminophen 10/325 mg Tablet PO PRN ×2 (10:00)
--- NOTE | 2020-09-25 17:36 | PDOC.HOSPP ---
- Subjective Encounter Date: 09/25/20 Encounter Time: 09:30 Subjective: Patient seen for follow-up regarding colon cancer. Reports feeling better. - Objective Vital Signs & Weight: Vital Signs (12 hours) Temp BP BP BP Pulse Ox Pulse Ox Pulse Ox 09/25/20 15:35 97.2 F L 09/25/20 15:28 130/60 09/25/20 13:37 165/70 H 116/59 L 93 L 95 09/25/20 11:42 97.2 F L 09/25/20 09:10 116/60 09/25/20 08:00 95 09/25/20 07:16 96.8 F L Weight Weight 240 lb 6.4 oz Most Recent Monitor Data Heart Rate from ECG 78 NIBP 119/52 NIBP BP-Mean 74 Respiration from ECG 21 SpO2 93 I&O: 09/24/20 09/25/20 09/26/20 06:59 06:59 06:59 Intake Total 2150 2900 Output Total 700 1615 Balance 1450 1285 Result Diagrams: 09/25/20 03:46 09/25/20 03:46 Additional Labs: Accuchecks 09/25/20 09/25/20 09/25/20 16:52 10:32 06:48 POC Glucose 212 H 224 H 210 H 09/24/20 20:23 POC Glucose 232 H Labs and MAR reviewed by me EKG Reviewed by me: Yes (Telemetry shows normal sinus rhythm) Hospitalist ROS - Review of Systems Cardiovascular: denies: chest pain, palpitations, orthopnea, paroxysmal noc. dyspnea, edema, light headedness Gastrointestinal: denies: nausea, vomiting, abdominal pain, diarrhea, constipation, melena, hematochezia - Medication Medications: Active Medications Generic Name Dose Route Start Last Admin Trade Name Freq PRN Reason Stop Dose Admin Albuterol/Ipratropium 3 ml 09/23/20 19:00 09/25/20 16:03 Ipratropium/Albuterol Sulfate 3 Ml Neb EZPAP Not Given [id number] RAJWINDER Aspirin 81 mg 09/24/20 09:00 09/25/20 09:10 Aspirin Chewable 81 Mg Tab PO 81 mg DAILY RAJWINDER Administration Carvedilol 12.5 mg 09/25/20 09:00 09/25/20 15:28 Carvedilol 6.25 Mg Tab PO 12.5 mg TID RAJWINDER Administration Enoxaparin Sodium 40 mg 09/23/20 21:00 09/24/20 20:20 Enoxaparin Sodium 40 Mg/0.4 Ml Syringe SC 40 mg 2100 RAJWINDER Administration Gabapentin 100 mg 09/23/20 21:00 09/25/20 09:11 Gabapentin 100 Mg Cap PO 100 mg BID RAJWINDER Administration Lactated Ringer's 1,000 mls @ 50 mls/hr 09/24/20 15:04 09/25/20 01:11 Lactated Ringer's IV 1,000 mls .Q20H RAJWINDER Administration Insulin Glargine 15 units/ 0.15 mls @ 0 mls/hr 09/25/20 09:00 09/25/20 09:12 Miscellaneous Medication SC Not Given QAM [facility] Insulin Human Lispro 0 units 09/21/20 13:45 09/25/20 11:25 Humalog 300 Units/3 Ml Vial SC 3 unit .MILD SLIDING SCALE PRN Administration Mild Correctional Scale Levothyroxine Sodium 50 mcg 09/24/20 06:00 09/25/20 06:46 Levothyroxine Sodium 50 Mcg Tab PO 50 mcg 0600 RAJWINDER Administration Pantoprazole Sodium 40 mg 09/23/20 09:00 09/25/20 09:13 Pantoprazole 40 Mg Vial IVP 40 mg DAILY RAJWINDER Administration - Exam General Appearance: awake alert Eye: anicteric sclera ENT: moist mucosa Neck: supple Heart: RRR Respiratory: CTAB Gastrointestinal: soft, non-tender Skin: no rashes Psychiatric: normal affect, normal behavior Hosp A/P - Plan Assessment: invasive moderately differentiated adenocarcinoma Generalized weakness/symptomatic anemia due to GI bleeding Blood loss anemia Coronary artery disease status post CABG History of AICD placement Chronic atrial fibrillation on anticoagulation at admission Diabetes mellitus type 2 Iron deficiency anemia Hypertension Obesity with a BMI 32.9 Thrombocytopenia JOSE on CKD stage IIIPOA Hypothyroidism Peripheral neuropathy Plan: Status post right colectomy Vital signs stable. Continue physical therapy. Continue electrolyte replacement protocol. Increase Lantus to 20 units daily. Continue Coreg during the postoperative period. Continue levothyroxine.
[2020-09-25] MEDS: Enoxaparin Sodium 40 MG/0.4 ML SYRINGE SC SCH (21:41)
--- NOTE | 2020-09-25 23:56 | PRG ---
DATE OF SERVICE: 09/25/2020 Mr. Waterman is postoperative day #2 following open right colectomy for presumed colon cancer. The patient remains in the [facility]. He has had an uneventful day. He was tolerating liquids and has been advanced up to solid food. He tells me he does not have much of an appetite, but he ate solid food this evening. He believes he has had some flatus, but not recently. He has had no bowel movement. He does tell me he is belching significantly but does not have any nausea currently. He notes minimal appropriate discomfort. He is voiding well. He has ambulated with physical therapy. PHYSICAL EXAMINATION: VITAL SIGNS: He is afebrile. His pulse is 84, blood pressure 126/48. LUNGS: Clear to auscultation. ABDOMEN: Obese but soft. Bowel sounds are present, but hypoactive. Dressing is intact on his midline incision. LABORATORY DATA: His CBC shows a low, but relatively stable hemoglobin of 7.5, white blood cell count of 6.3. His platelet count has been dropping and is currently 97. It was 104 yesterday. His electrolytes are unremarkable. He has mild elevation of creatinine at 1.7, which is relatively stable for him. ASSESSMENT: He appears to be stable following open right hemicolectomy. We will see how he tolerates his diet tomorrow. He is doing well and has evidence of appropriate bowel function, then he may be appropriate for discharge tomorrow. Job ID: [id number]
[2020-09-26 03:56] LABS: #Eosinphils 0.1 thou/uL (0.0-0.7); #Lymphocytes 1.1 thou/uL (1.20-3.40); #Monocytes 0.4 thou/uL (0.11-0.59); #Neutrophils 3.2 thou/uL (1.40-6.50); %Basophils 0.9 % (0.0-1.0); %Eosinophils 2.2 % (0.0-10.0); %Lymphocytes 22.1 % (21.0-51.0); %Monocytes 8.5 % (0.0-10.0); %Neutrophils 66.3 % (42.0-75.0); Hemoglobin 7.1 g/dL (14.0-18.0); Mean Corpuscular HGB CONC 29.5 g/dL (32.0-36.0); Mean Corpuscular Hemoglobin 20.4 pg (27.0-31.0); Mean Corpuscular Volume 69.2 fL (78.0-98.0); Mean Platelet Volume 6.4 fL (7.4-10.4); Platelet Count 109 thou/uL (130-400); RBC Distribution Width 19.5 % (11.5-14.5); Red Blood Cell (RBC) Count 3.45 mill/uL (4.70-6.10); White Blood Cell (WBC) Count 4.8 thou/uL (4.8-10.8)
[2020-09-26 04:15] LABS: Anion Gap 15 mmol/L (10-20); BUN (Urea Nitrogen) 45 mg/dL (8.4-25.7); Calc. Creatinine Clearance 55 mL/min (70-130); Calcium 8.1 mg/dL (7.8-10.44); Carbon Dioxide 25 mmol/L (23-31); Chloride 100 mmol/L (98-107); Glucose 193 mg/dL (83-110); Potassium 4.8 mmol/L (3.5-5.1); Sodium 135 mmol/L (136-145)
[2020-09-26] MEDS: Levothyroxine Sodium 50 MCG TAB PO SCH (06:14)
[2020-09-26] MEDS: HumaLOG 300 UNITS/3 ML VIAL SC PRN ×2 (06:17→17:16)
[2020-09-26] MEDS ORDERED: Insulin Glargine 20 UNITS in Pre-Filled Syringe 1 EACH SC SCH (09:00)
[2020-09-26] MEDS ORDERED: Furosemide 20 MG/2 ML VIAL SLOW IVP SCH (09:00)
--- NOTE | 2020-09-26 09:08 | RAD ---
Chest AP view INDICATION: Evaluate for volume overload COMPARISON: September 21, 2020 FINDINGS: Lungs: There is increased bilateral infrahilar airspace disease suspicious for edema Cardiac silhouette: There is moderate to prominent cardiomegaly Pulmonary vasculature: There is moderate pulmonary vascular congestion slightly more pronounced than on the prior exam Pleural spaces: There are worsening small bilateral pleural effusions Upper abdomen: No abnormality seen. Osseous structures: No acute osseous abnormality. Additional findings: Single lead AICD and post-CABG change are stable. No pneumothorax. IMPRESSION: Worsening volume overload or CHF
[2020-09-26] MEDS: Aspirin Chewable 81 MG TAB PO SCH (09:49)
[2020-09-26] MEDS: Gabapentin 100 MG CAP PO SCH ×2 (09:50→23:43)
[2020-09-26] MEDS: Insulin Glargine 8 UNITS in Pre-Filled Syringe 1 EACH SC SCH (09:51)
[2020-09-26] MEDS: Carvedilol 6.25 MG TAB PO SCH ×3 (09:52→23:42)
[2020-09-26] MEDS: Furosemide 40 MG/4 ML VIAL SLOW IVP SCH (13:54)
--- NOTE | 2020-09-26 15:56 | PRG ---
DATE OF SERVICE: 09/26/2020 SUBJECTIVE: Mr. Waterman is postoperative day #3 following open right colectomy for presumed colon cancer. He was transferred today from [facility] to a telemetry floor. He tells me today that "he feels miserable." He feels bloated and feels like he needs to have a bowel movement. He has been passing some flatus. He tells me he has also had a much larger amount of belching. He has not vomited. He has been eating solid food, but tells me he feels quite full. His labs this morning show that his hemoglobin had dropped from 7.5 yesterday to 7.1 today. Additionally, he had some relative thrombocytopenia with a platelet count of 97 yesterday. For these reasons, I discontinued his Lovenox this morning. OBJECTIVE: VITAL SIGNS: Temperature is 96.8, pulse is between 83 and 107, blood pressure is 120/45. LUNGS: Clear to auscultation anteriorly. CARDIAC: Regular rate and rhythm. ABDOMEN: Obese. It appears to be soft with minimal tenderness. He does have reasonable bowel sounds. Dressing is intact over his midline incision. LABORATORY DATA: His basic metabolic panel shows essentially normal electrolytes. His BUN is up somewhat at 45 (it was 33 yesterday). His creatinine, however, is down to 1.59 from 1.7 yesterday. His blood sugars run about 190 to 200. ASSESSMENT: The patient is reasonably stable following his surgery. However, his sensation of bloated feeling without any bowel function as well as his significant anemia is enough that I do not feel comfortable discharging him. I will repeat his labs tomorrow. So that he does not feel pressured to keep down oral intake, I will start him on a low volume IV fluid until we make sure that he is tolerating his diet better. Labs will be rechecked tomorrow. Job ID: [id number]
[2020-09-26] MEDS: Sodium Chloride 0.9% 1,000 ML IV SCH (15:57)
--- NOTE | 2020-09-26 15:58 | PDOC.HOSPP ---
- Subjective Encounter Date: 09/26/20 Encounter Time: 11:20 Subjective: Pt seen for followup re: colon mass. Denies any new complaints. - Objective Vital Signs & Weight: Vital Signs (12 hours) Temp Pulse Resp BP BP Pulse Ox 09/26/20 14:54 97.9 F 86 20 147/62 H 94 L 09/26/20 13:54 142/66 H 09/26/20 12:12 75 21 H 98 09/26/20 11:34 96.8 F L 09/26/20 09:52 129/91 H 09/26/20 07:30 94 L 09/26/20 07:03 97.0 F L 09/26/20 05:50 76 16 100 09/26/20 04:30 97.8 F Weight Weight 242 lb Most Recent Monitor Data Heart Rate from ECG 107 NIBP 120/45 NIBP BP-Mean 70 Respiration from ECG 20 SpO2 91 I&O: 09/25/20 09/26/20 09/27/20 06:59 06:59 06:59 Intake Total 2900 1576 569 Output Total 1247 224 7547 Balance 1285 976 -1131 Result Diagrams: 09/26/20 03:35 09/26/20 03:35 Additional Labs: Accuchecks 09/26/20 09/26/20 09/25/20 10:23 05:53 21:49 POC Glucose 198 H 190 H 190 H 09/25/20 16:52 POC Glucose 212 H I reviewed patient's labs and MAR Hospitalist ROS - Review of Systems Cardiovascular: denies: chest pain, palpitations, orthopnea, paroxysmal noc. dyspnea, edema, light headedness Gastrointestinal: denies: nausea, vomiting, abdominal pain, diarrhea, constipation, melena, hematochezia - Medication Medications: Active Medications Generic Name Dose Route Start Last Admin Trade Name Freq PRN Reason Stop Dose Admin Hydrocodone Bitart/Acetaminophen 1 tab 09/25/20 10:00 09/25/20 18:21 Hydrocodone/Acetaminophen 10/325 Mg Tablet PO 1 tab Q4H PRN Administration Mild-Moderate Pain (1-5) Albuterol/Ipratropium 3 ml 09/23/20 19:00 09/26/20 12:12 Ipratropium/Albuterol Sulfate 3 Ml Neb EZPAP 3 ml [id number] RAJWINDER Administration Aspirin 81 mg 09/24/20 09:00 09/26/20 09:49 Aspirin Chewable 81 Mg Tab PO 81 mg DAILY RAJWINDER Administration Carvedilol 12.5 mg 09/25/20 09:00 09/26/20 13:54 Carvedilol 6.25 Mg Tab PO 12.5 mg TID RAJWINDER Administration Furosemide 40 mg 09/26/20 14:00 09/26/20 13:54 Furosemide 40 Mg/4 Ml Vial SLOW IVP 40 mg 0600,1400 RAJWINDER Administration Gabapentin 100 mg 09/23/20 21:00 09/26/20 09:50 Gabapentin 100 Mg Cap PO 100 mg BID RAJWINDER Administration Insulin Glargine 8 units/ 0.08 mls @ 0 mls/hr 09/26/20 09:00 09/26/20 09:51 Miscellaneous Medication SC 0.08 mls QAM RAJWINDER Administration Insulin Human Lispro 0 units 09/21/20 13:45 09/26/20 06:17 Humalog 300 Units/3 Ml Vial SC 2 unit .MILD SLIDING SCALE PRN Administration Mild Correctional Scale Levothyroxine Sodium 50 mcg 09/24/20 06:00 09/26/20 06:14 Levothyroxine Sodium 50 Mcg Tab PO 50 mcg 0600 RAJWINDER Administration Pantoprazole Sodium 40 mg 09/26/20 09:00 09/26/20 09:50 Pantoprazole 40 Mg Tab PO 40 mg DAILY RAJWINDER Administration - Exam Eye: anicteric sclera ENT: normocephalic atraumatic Neck: supple Heart: RRR Respiratory: CTAB Gastrointestinal: soft, non-tender Skin: no rashes Psychiatric: normal affect, normal behavior Hosp A/P - Plan Assessment: Colon cancer Generalized weakness symptomatic anemia due to GI bleeding Acute blood loss anemia Coronary artery disease status post CABG Chronic atrial fibrillation on anticoagulation at admission Diabetes mellitus type 2 Iron deficiency anemia Hypertension Thrombocytopenia JOSE on CKD stage IIIPOA Hypothyroidism Peripheral neuropathy Plan: Patient had right colectomy Vital signs stable. Participating in physical therapy. Continue electrolyte replacement protocol. Patient was reportedly not receiving high doses of Lantus insulin because of not eating well. Continue Lantus at 8 units daily. Continue Coreg during the postoperative period. Patient is on levothyroxine.
[2020-09-26] MEDS ORDERED: Polyethylene Glycol 3350 17 GM Packet PO PRN (17:12)
[2020-09-27 01:31] LABS: #Eosinphils 0.1 thou/uL (0.0-0.7); #Lymphocytes 0.8 thou/uL (1.20-3.40); #Monocytes 0.4 thou/uL (0.11-0.59); %Basophils 0.5 % (0.0-1.0); %Eosinophils 2.2 % (0.0-10.0); %Lymphocytes 14.8 % (21.0-51.0); %Monocytes 8.2 % (0.0-10.0); %Neutrophils 74.2 % (42.0-75.0); Hemoglobin 8.1 g/dL (14.0-18.0); Mean Corpuscular HGB CONC 30.5 g/dL (32.0-36.0); Mean Corpuscular Hemoglobin 20.7 pg (27.0-31.0); Mean Corpuscular Volume 67.8 fL (78.0-98.0); Platelet Count 147 thou/uL (130-400); RBC Distribution Width 19.8 % (11.5-14.5); Red Blood Cell (RBC) Count 3.91 mill/uL (4.70-6.10); White Blood Cell (WBC) Count 5.4 thou/uL (4.8-10.8)
[2020-09-27 02:00] LABS: Anion Gap 15 mmol/L (10-20); BUN (Urea Nitrogen) 42 mg/dL (8.4-25.7); Calc. Creatinine Clearance 48 mL/min (70-130); Calcium 8.4 mg/dL (7.8-10.44); Carbon Dioxide 28 mmol/L (23-31); Chloride 98 mmol/L (98-107); Glucose 246 mg/dL (83-110); Magnesium 1.7 mg/dL (1.6-2.6); Potassium 4.6 mmol/L (3.5-5.1); Sodium 136 mmol/L (136-145)
[2020-09-27] MEDS ORDERED: Magnesium 2 GM/50 ML 2 GM in Premix Bag 1 BAG IVPB SCH (03:45)
[2020-09-27] MEDS: Levothyroxine Sodium 50 MCG TAB PO SCH (07:25)
[2020-09-27] MEDS: Furosemide 40 MG/4 ML VIAL SLOW IVP SCH ×2 (07:25→14:53)
[2020-09-27] MEDS: HumaLOG 300 UNITS/3 ML VIAL SC PRN ×2 (07:25→13:00)
[2020-09-27] MEDS: Gabapentin 100 MG CAP PO SCH (09:24)
[2020-09-27] MEDS: Carvedilol 6.25 MG TAB PO SCH ×2 (09:24→14:53)
[2020-09-27] MEDS: Aspirin Chewable 81 MG TAB PO SCH (09:24)
[2020-09-27] MEDS: Insulin Glargine 8 UNITS in Pre-Filled Syringe 1 EACH SC SCH (09:24)
[2020-09-27 12:19] VITALS: BP 140/68; TEMP 97.3; BMI 34.8
[2020-09-27] MEDS: Sodium Chloride 0.9% 1,000 ML IV SCH (13:02)
--- NOTE | 2020-09-27 14:59 | PDOC.DS.DS ---
Provider - Provider Date of Admission: 09/21/20 15:24 Date of Discharge: 09/27/20 Admitting Provider: Eric Pascual MD Consultations: Cardiology (Dr. Saravia), Gastroentrology (Dr. Welch), General Surgery (Dr. Watts), Pulmonary (Dr. Banks) Primary Care Physician: Karol Gagnon, MSN, [facility] Course - Hospital Course Hospital Course: Discharge diagnosis: 1. GI bleed 2. Symptomatic anemia 3. Iron deficiency anemia 4. Colon adenocarcinoma 5. Chronic kidney disease stage III 6. COVID-19 PCR test negative 7. Hyponatremia 8. Nonsustained ventricular tachycardia. Hospital course: Patient is a pleasant 80-year-old gentleman who was admitted to the hospital on September 21, 2020 for GI bleeding and acute blood loss anemia. He was seen by gastroenterology service. On September 22 he underwent EGD and colonoscopy. He was found to have solitary gastric erosions, ulcerated colon mass and proximal transverse colon and sigmoid diverticulosis coli. Biopsy reports showed mild chronic inactive gastritis, no Helicobacter pylori organisms identified, large intestine mass showing invasive moderately differentiated adenocarcinoma. Patient was seen by general surgery service. On September 23 he underwent laparoscopic converted to open right colectomy with primary ileocolic anastomosis, stapled. He had wound VAC placed. He continued to improve clinically. Diet was started and gradually advanced. Patient has been cleared for discharge by general surgery service. I am providing him with a prescri ption for rolling walker. He has been transitioned to Eliquis from warfarin per cardiology service. His beta-mamadou has been changed to 3 times daily dosing because he had episode of nonsustained ventricular tachycardia during this hospitalization. Many thanks for allowing me to participate in your patient's care. Please feel free to contact me with any questions or concerns. Discharge destination: Home Total amount of time spent coordinating this discharge: 31 minutes - Labs Lab Results: 09/27/20 01:17 09/27/20 01:17 Abnormal Lab Results - Last 48 hrs 09/26/20 03:35: Sodium 135 L, BUN 45 H, Creatinine 1.59 H 09/26/20 03:35: RBC 3.45 L, Hgb 7.1 L, Hct 23.9 L, MCV 69.2 L, MCH 20.4 L, MCHC 29.5 L, RDW 19.5 H, Plt Count 109 L, MPV 6.4 L, Lymphocytes # 1.1 L 09/27/20 01:17: BUN 42 H, Creatinine 1.83 H 09/27/20 01:17: RBC 3.91 L, Hgb 8.1 L, Hct 26.5 L, MCV 67.8 L, MCH 20.7 L, MCHC 30.5 L, RDW 19.8 H, MPV 6.0 L, Lymphocytes % 14.8 L, Lymphocytes # 0.8 L 09/27/20 01:47: Crossmatch See Detail Microbiology - Entire Visit 09/21/20 12:35 Stool - Pending Stool Occult Blood (BENIGNO) - Final - Physical Exam Vitals: Vital Signs (12 hours) Temp Pulse Pulse Resp BP BP BP 09/27/20 14:23 63 18 09/27/20 12:00 97.3 F L 90 18 140/68 09/27/20 08:40 96 138/59 L 09/27/20 07:58 97.9 F 95 18 137/74 09/27/20 04:00 98.2 F 95 20 153/76 H Pulse Ox Pulse Ox Pulse Ox 09/27/20 14:23 93 L 09/27/20 12:00 92 L 09/27/20 08:40 94 L 96 09/27/20 07:58 94 L 09/27/20 04:00 94 L Weight Admit Weight 243 lb Weight 243 lb Most Recent Monitor Data Heart Rate from ECG 107 NIBP 120/45 NIBP BP-Mean 70 Respiration from ECG 20 SpO2 91 Physical Exam: The patient was seen and examined on the day of discharge. Patient denies chest pain or shortness of breath. Vital signs are stable. S1 and S2 are heard. Lungs are clear to auscultation bilaterally. Plan - Discharge Medications Prescriptions: Carvedilol [Coreg] 12.5 mg PO TID #90 tab Apixaban [Eliquis] 2.5 mg PO BID #60 tab Ferrous Sulfate 325 mg PO DAILY #30 tab Multivitamin [Multi-Vitamin Daily] 1 tablet PO DAILY #30 tablet Home Medications: Medication Instructions Recorded Confirmed Type Atorvastatin Calcium 80 mg PO DAILY 07/02/18 09/21/20 History Furosemide 40 mg PO DAILY 07/02/18 09/21/20 History Insulin Glargine [Lantus Vial] 13 unit SQ HS 07/02/18 09/21/20 History Aspirin Chewable [Aspirin Chewable 81 mg PO DAILY 01/21/20 09/21/20 History Tablet] Icosapent Ethyl [Vascepa] 1 gm PO QID 01/21/20 09/21/20 History Levothyroxine Sodium 50 mcg PO DAILY 01/21/20 09/21/20 History Omeprazole 20 mg PO DAILY 09/21/20 09/21/20 History Apixaban [Eliquis] 2.5 mg PO BID #60 tab 09/27/20 Rx Carvedilol [Coreg] 12.5 mg PO TID #90 tab 09/27/20 Rx Ferrous Sulfate 325 mg PO DAILY #30 tab 09/27/20 Rx Multivitamin [Multi-Vitamin Daily] 1 tablet PO DAILY #30 tablet 09/27/20 Rx Allergies: No Known Allergies Allergy (Verified 07/02/18 10:12) - Discharge Instructions Discharge Instructions:: Shower/bathe prn with wound left open. Use [id number] acetaminophen for pain management, use as directed. Check your blood sugars, blood pressure and heart rate 3 times a day and shows readings to your primary care provider. - Follow up Plan Referrals: Edmund Watts MD [Active] - 10/07/20 2:40 pm Karol Gagnon MSN [employer] EX[employer]ER [employer] [Primary Care Provider] - 3 Days Disposition: HOME Quality - Care Measures CORE MEASURES:: N/A
--- NOTE | 2020-09-29 06:13 | PQF ---
CLINICAL DOCUMENTATION CLARIFICATION FORM: Dear : Harley Victoria Date / Time: 09/29/2020 0612 Please exercise your independent, professional judgment in responding to the clarification form. Clinical indicators are provided on the bottom of this form for your review Please check appropriate box(es): [ ] Acute Respiratory Failure: [ ] with Hypoxia [ ] with Hypercapnia [ ] ARDS (Acute Respiratory Distress Syndrome) [ ] Hypoxia [x ] Other diagnosis, please specify __No evidence of Acute resp failure or ARDS or hypoxia [ ] Unable to determine In addition, please specify: Present on Admission (POA): [ ] Yes [ ] No [ ] Unable to determine Physician Signature: Date/Time: For continuity of documentation, please document condition throughout progress notes and discharge summary. Thank You. To be completed by CDI/Coding staff for physician review: Present Clinical Indicators - Signs / Symptoms / Labs Results and Location in Medical Record [X] BP 136/55, Pulse 78, Resp 17, Temp 98.2 Vital signs 09/21 [X] O2 sat: 93%; 94%; 95% Vital signs 09/21-09/26 [X] He complained of SOB, which has been increasing over the last month Consult Dr Banks 09/23 [X] Multifactorial dyspnea. This clearly has some serious cardiac issues Consult Dr Banks 09/23 Present Risk Factors Results and Location in Medical Record [X] 80 year-old Male H&P p1 09/21 [employer] MARKETING OUTREACH COORDINATOR [X] DM H&P p1 09/21 [employer] MARKETING OUTREACH COORDINATOR [X] Obesity H&P p1 09/21 [employer] MARKETING OUTREACH COORDINATOR [X] Former smoker H&P p1 09/21 [employer] MARKETING OUTREACH COORDINATOR [X] History of collapse lung H&P p1 09/21 [employer] MARKETING OUTREACH COORDINATOR [X] CHF PN 09/22 [X] CKD Consult 09/22 Present Treatments Results and Location in Medical Record [X] Venturi mask 50 L/Min Respiratory panel 09/23 [X] Respiratory consult Consult Dr Banks 09/23 [X] Recommend for PFTs Consult Dr Banks 09/23 [X] Empiric bronchodilator Consult Dr Banks 09/23 [X] Incentive spirometry Consult Dr Banks 09/23 CDS/Dispensing Lead Signature: Lexii Jay Phone #: [facility] [phone] Date/Time: 09/29/2020 0612 Acute Respiratory Failure: ABG pH < 7.35 or > 7.45; Decreased oxygen saturation (<90% room air or < 95% on oxygen); PCO2 > 50 mm Hg; PO2 < 60 mm Hg; Labored or rapid respirations ARDS: Dx Criteria [[place] ARDS]: Respiratory symptoms within one week of a known clinical insult (e.g. shock, infection, surgery, trauma) Bilateral opacities in CXR/Chest CT not due to CHF or fluid This is a permanent part of the Medical Record [facility]
--- NOTE | 2020-10-02 14:14 | EKG ---
Test Reason : Blood Pressure : / mmHG Vent. Rate : 076 BPM Atrial Rate : 098 BPM P-R Int : 000 ms QRS Dur : 110 ms QT Int : 424 ms P-R-T Axes : 000 010 080 degrees QTc Int : 477 ms Atrial fibrillation with premature ventricular or aberrantly conducted complexes Nonspecific ST abnormality Abnormal ECG Confirmed by RIYA ALMEIDA ([id number]), scientific publications editor VLADIMIR DONNELLY ([id number]) on 10/02/2020 2:14:17 PM Referred By: Confirmed By:RIYA ALMEIDA
== END 2020-09-27 17:12 | disposition home or self-care (01) | DRG 330 ==
LOC: ERS 11:34 → ONC 15:24 → IMCU/EMU 09-23 13:43 → 2SE 09-26 15:04
PROVIDERS: ADMIT Emergency Medicine; ATTEND Internal Medicine
PROC: 30233N1 Transfusion of Nonautologous Red Blood Cells into Peripheral Vein, Percutaneous Approach (ICD-10-PCS; 2020-09-21)
PROC: 0DB68ZX Excision of Stomach, Via Natural or Artificial Opening Endoscopic, Diagnostic (ICD-10-PCS; 2020-09-22)
PROC: 0DBL8ZX Excision of Transverse Colon, Via Natural or Artificial Opening Endoscopic, Diagnostic (ICD-10-PCS; 2020-09-22)
PROC: 0DBF0ZZ Excision of Right Large Intestine, Open Approach (ICD-10-PCS; principal; 2020-09-23)
PROC: 0WJG4ZZ Inspection of Peritoneal Cavity, Percutaneous Endoscopic Approach (ICD-10-PCS; 2020-09-23)
DX: C18.2 Malignant neoplasm of ascending colon (principal); E87.1 Hypo-osmolality and hyponatremia; I47.2 Ventricular tachycardia; D62 Acute posthemorrhagic anemia; I50.42 Chronic combined systolic (congestive) and diastolic (congestive) heart failure; I48.21 Permanent atrial fibrillation; I13.0 Hypertensive heart and chronic kidney disease with heart failure and stage 1 through stage 4 chronic kidney disease, or unspecified chronic kidney disease; N17.9 Acute kidney failure, unspecified; N18.30 Chronic kidney disease, stage 3 unspecified; Z20.828 Contact with and (suspected) exposure to other viral communicable diseases; K57.30 Diverticulosis of large intestine without perforation or abscess without bleeding; I25.10 Atherosclerotic heart disease of native coronary artery without angina pectoris; E66.01 Morbid (severe) obesity due to excess calories; E78.5 Hyperlipidemia, unspecified; K21.9 Gastro-esophageal reflux disease without esophagitis; M19.90 Unspecified osteoarthritis, unspecified site; Z96.651 Presence of right artificial knee joint; G47.33 Obstructive sleep apnea (adult) (pediatric); I25.5 Ischemic cardiomyopathy; D63.0 Anemia in neoplastic disease; E11.22 Type 2 diabetes mellitus with diabetic chronic kidney disease; K29.70 Gastritis, unspecified, without bleeding; E11.42 Type 2 diabetes mellitus with diabetic polyneuropathy; Z95.810 Presence of automatic (implantable) cardiac defibrillator; Z79.4 Long term (current) use of insulin; Z68.34 Body mass index [BMI] 34.0-34.9, adult; Z53.31 Laparoscopic surgical procedure converted to open procedure; Z86.718 Personal history of other venous thrombosis and embolism; Z85.828 Personal history of other malignant neoplasm of skin; Z95.1 Presence of aortocoronary bypass graft; Z87.891 Personal history of nicotine dependence; Z79.899 Other long term (current) drug therapy; Z79.01 Long term (current) use of anticoagulants
CPT/HCPCS: 36415; 36416; 36430; 71045; 74177; 80048; 80053; 81003; 82105; 82270; 82274; 82378; 82728; 83540; 83550; 83690; 83735; 83880; 84100; 84443; 84484; 85025; 85610; 85730; 86850; 86900; 86901; 87635; 88305; 88309; 88312; 93005; 94640; C9113; J1650; J1815; J1940; J2370; J2405; J2704; J3010; J3475; J7620; P9016; Q0163; Q9967; S0020; U0003

== ENCOUNTER 2020-10-07 13:26 | Outpatient (CLI) | payer MEDICARE, BC ==
--- NOTE | 2020-10-07 14:17 | RAD ---
EXAM: XR Chest Pa Lat STANDARD PROVIDED CLINICAL HISTORY: Postprocedure discomfort COMPARISON: 09/26/2020 FINDINGS: The lateral view is degraded by patient motion, limiting evaluation. Cardiac silhouette remains enlar ged. Left subclavian cardiac pacing device is redemonstrated with lead tips overlying expected location of RV. Median sternotomy changes are again seen, as is atherosclerosis. There is blunting of the right lateral costophrenic angle likely reflecting pleural fluid. No focal consolidation or pneumothorax is evident. IMPRESSION: Cardiomegaly and probable right pleural fluid are demonstrated.
== END 2020-10-07 13:27 | disposition home or self-care (01) ==
LOC: BICRAD 13:26
PROVIDERS: ATTEND Specialist
DX: G89.18 Other acute postprocedural pain (principal); I51.7 Cardiomegaly
CPT/HCPCS: 71046

== ENCOUNTER 2020-10-24 23:32 | Inpatient (IN) | payer MEDICARE, BC ==
[2020-10-24] MEDS ORDERED: Amiodarone In Dextrose 200 ML IVPB SCH (23:45)
--- NOTE | 2020-10-24 23:55 | RAD ---
Chest one view HISTORY: Chest pain. COMPARISON: 10/07/2019. FINDINGS: Cardiac silhouette is magnified and enlarged. Pulmonary vasculature are unremarkable. Mediastinum is midline with postoperative changes and a left subclavian defibrillator. No lobar consolidation or evidence of pneumothorax. IMPRESSION : Cardiomegaly and other findings are stable.
[2020-10-25 00:02] LABS: #Eosinphils 0.2 thou/uL (0.0-0.7); #Lymphocytes 0.8 thou/uL (1.20-3.40); #Monocytes 0.5 thou/uL (0.11-0.59); #Neutrophils 5.6 thou/uL (1.40-6.50); %Basophils 0.3 % (0.0-1.0); %Eosinophils 2.2 % (0.0-10.0); %Lymphocytes 11.8 % (21.0-51.0); %Monocytes 6.6 % (0.0-10.0); %Neutrophils 79.1 % (42.0-75.0); Hemoglobin 10.3 g/dL (14.0-18.0); Mean Corpuscular HGB CONC 29.4 g/dL (32.0-36.0); Mean Corpuscular Hemoglobin 21.9 pg (27.0-31.0); Mean Corpuscular Volume 74.3 fL (78.0-98.0); Mean Platelet Volume 5.7 fL (7.4-10.4); Platelet Count 140 thou/uL (130-400); RBC Distribution Width 23.1 % (11.5-14.5); Red Blood Cell (RBC) Count 4.71 mill/uL (4.70-6.10); White Blood Cell (WBC) Count 7.1 thou/uL (4.8-10.8)
[2020-10-25 00:06] LABS: INR-International Normal Ratio 1.3; Prothrombin Time 16.9 sec (12.0-14.7)
[2020-10-25 00:22] LABS: ALT (SGPT) 18 U/L (8-55); AST (SGOT) 36 U/L (5-34); Albumin 3.6 g/dL (3.4-4.8); Alkaline Phosphatase 73 U/L (40-110); Anion Gap 16 mmol/L (10-20); BUN (Urea Nitrogen) 33 mg/dL (8.4-25.7); Bilirubin, Total 1.1 mg/dL (0.2-1.2); Calc. Creatinine Clearance 0 mL/min (70-130); Carbon Dioxide 27 mmol/L (23-31); Chloride 99 mmol/L (98-107); Globulin 3.3 g/dL (2.4-3.5); Glucose 282 mg/dL (83-110); Magnesium 1.7 mg/dL (1.6-2.6); Potassium 4.4 mmol/L (3.5-5.1); Protein, Total 6.9 g/dL (5.8-8.1); Sodium 138 mmol/L (136-145)
[2020-10-25 00:46] LABS: SARS-CoV-2 NAA Rapid Test Not Detected (NotDetected)
[2020-10-25 00:51] LABS: CKMB 7.8 ng/mL (0-6.6)
[2020-10-25] MEDS ORDERED: Ondansetron PF 4 MG/2 ML Vial IVP PRN (01:12)
[2020-10-25] MEDS ORDERED: Calcium Carbonate 500 MG ChewTAB PO PRN (01:12)
[2020-10-25] MEDS ORDERED: Acetaminophen 650 MG Suppository PR PRN (01:12)
[2020-10-25] MEDS ORDERED: Ondansetron ODT 4 MG TAB PO PRN (01:12)
[2020-10-25] MEDS ORDERED: Amiodarone 450 MG in Dextrose 5% in Water 250 ML IVPB SCH (01:15)
[2020-10-25] MEDS ORDERED: Aspirin Chewable 81 MG TAB ONE ×2 (01:19→12:45)
--- NOTE | 2020-10-25 01:33 | PDOC.HHP ---
Hospitalist HPI - History of Present Illness def shock History of Present Illness: Case of an 80y/o male with a pmhx of hypothyroidism, cad, chf, hypothyroidism, dm, htn, atrial fibrillation and colon CA who comes to hospital after feeling defibrillator shock him multiple times. patient states he was on his usual state of health until today when he felt his defibrillator go off. he reports was laying in bed around 2100 when he felt his defibrillator discharge. He states that over the next hour and a half he estimates that he was shocked approximately [address] In route EMS initiated a lidocaine drip. Patient continues to intermittently go into V. tach. He denies any specific chest pain, does refers some shortness of breath. Denies any recent illness. patient with a recent discharge September 27, 2020 following an open right biju-colectomy with primary re-anastomosis for a primary colon adenocarcinoma. Hospitalist ROS - Review of Systems All other systems reviewed; all pertinent +/- noted in HPI/Subj Hospitalist History - Past Surgical History Past Surgical History: reports: CABG Other Surgical History: colectomy with anostomosis - Family History Family History: reports: cardiac disorder, hypertension - Social History Smoking Status: Former smoker Alcohol: reports: None Drugs: reports: none - Exam General Appearance: NAD, awake alert Eye: PERRL, anicteric sclera ENT: normocephalic atraumatic, no oropharyngeal lesions Neck: supple, symmetric, no JVD, no thyromegaly Heart: RRR, no murmur, no gallops Respiratory: CTAB, no wheezes, no rales Gastrointestinal: soft, non-tender, non-distended Extremities: no cyanosis, no clubbing, no edema Skin: normal turgor, no lesions, no rashes Neurological: cranial nerve grossly intact, normal sensation to touch Musculoskeletal: normal tone, normal strength, no muscle wasting Psychiatric: normal affect, normal behavior, A&O x 3 Hospitalist Results - Labs Result Diagrams: 10/24/20 23:10/24/20 23: Lab results: WBC 7.1 thou/uL (4.8-10.8) 10/24/20 23: Hgb 10.3 g/dL (14.0-18.0) L 10/24/20 23: Hct 35.0 % (42.0-52.0) L 10/24/20 23: MCV 74.3 fL (78.0-98.0) L 10/24/20 23:27 Plt Count 140 thou/uL (130-400) 10/24/20 23: Neutrophils % 79.1 % (42.0-75.0) H 10/24/20 23:27 Sodium 138 mmol/L (136-145) 10/24/20 23: Potassium 4.4 mmol/L (3.5-5.1) 10/24/20 23: Chloride 99 mmol/L (98-107) 10/24/20 23: Carbon Dioxide 27 mmol/L (23-31) 10/24/20 23: BUN 33 mg/dL (8.4-25.7) H 10/24/20 23: Creatinine 1.55 mg/dL (0.7-1.3) H 10/24/20 23: Glucose 282 mg/dL (83-110) H 10/24/20 23: Calcium 9.0 mg/dL (7.8-10.44) 10/24/20 23: Total Bilirubin 1.1 mg/dL (0.2-1.2) 10/24/20 23: AST 36 U/L (5-34) H 10/24/20 23: ALT 18 U/L (8-55) 10/24/20 23: Alkaline Phosphatase 73 U/L (40-110) 10/24/20 23: CK-MB (CK-2) 7.8 ng/mL (0-6.6) H* 10/24/20 23: Troponin I 0.283 ng/mL (< 0.028) H 10/24/20 23: B-Natriuretic Peptide 418.1 pg/mL (0-100) H 10/24/20 23: Serum Total Protein 6.9 g/dL (5.8-8.1) 10/24/20 23: Albumin 3.6 g/dL (3.4-4.8) 10/24/20 23: Hospitalist H&P A/P - Problem (1) Ventricular tachycardia Code(s): I47.2 - VENTRICULAR TACHYCARDIA Status: Acute (2) Colon tumor Code(s): D49.0 - NEOPLASM OF UNSPECIFIED BEHAVIOR OF DIGESTIVE SYSTEM Status: Acute (3) Afib Code(s): I48.91 - UNSPECIFIED ATRIAL FIBRILLATION Status: Chronic Qualifiers: Atrial fibrillation type: chronic (4) Chronic combined systolic and diastolic CHF, 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 Code(s): I50.42 - CHRONIC COMBINED SYSTOLIC AND DIASTOLIC HRT FAIL Status: Chronic (5) DM type 2 (diabetes mellitus, type 2) Status: Chronic (6) Dyslipidemia Code(s): E78.5 - HYPERLIPIDEMIA, UNSPECIFIED Status: Chronic (7) HTN (hypertension) Code(s): I10 - ESSENTIAL (PRIMARY) HYPERTENSION Status: Chronic Qualifiers: - Plan Plan: Case of an 80y/o male with the stated pmhx who presents with v tach s/p def shock v tach - ppm interviewed, 32 shocks were given - started on lidonecaine drip, switching to amiodarone - troponin elevated, will trend - cardiology evaluation - cardiac monitoring atrial fibrillation - on amiodarone drip - continue elliquis - in adequate ventr response dm - acc+ss - long acting insulin hypothyroidism - continue home meds - check tsh cad / htn / hld -continue home meds
[2020-10-25] MEDS ORDERED: HumaLOG 300 UNITS/3 ML VIAL SC PRN ×2 (01:39→10:21)
[2020-10-25] MEDS ORDERED: Dextrose 50% Abboject 50 ML SYRINGE SLOW IVP PRN ×2 (01:39→10:21)
[2020-10-25] MEDS ORDERED: Dextrose 5% in Water 1,000 ML IV PRN ×2 (01:39→10:21)
[2020-10-25 02:28] VITALS: BMI 18.4
[2020-10-25 04:17] VITALS: TEMP 97.9
[2020-10-25 04:18] LABS: Hemoglobin 9.4 g/dL (14.0-18.0); Mean Corpuscular HGB CONC 29.6 g/dL (32.0-36.0); Mean Corpuscular Volume 74.1 fL (78.0-98.0); Platelet Count 126 thou/uL (130-400); RBC Distribution Width 22.9 % (11.5-14.5); White Blood Cell (WBC) Count 5.5 thou/uL (4.8-10.8)
[2020-10-25 04:19] LABS: Band 8 % (5-11); Eosinophils 1 % (0-10); Lymphocytes 24 % (21-51); MDiff Complete? YES; Monocytes 7 % (0-10); Neutrophil 60 % (42-75); Platelet Morphology Comment Appears Adequate
[2020-10-25 04:25] LABS: ALT (SGPT) 15 U/L (8-55); AST (SGOT) 33 U/L (5-34); Albumin 3.2 g/dL (3.4-4.8); Alkaline Phosphatase 66 U/L (40-110); Anion Gap 16 mmol/L (10-20); BUN (Urea Nitrogen) 29 mg/dL (8.4-25.7); Bilirubin, Total 0.8 mg/dL (0.2-1.2); Calc. Creatinine Clearance 35 mL/min (70-130); Calcium 8.5 mg/dL (7.8-10.44); Carbon Dioxide 24 mmol/L (23-31); Chloride 101 mmol/L (98-107); Globulin 2.9 g/dL (2.4-3.5); Glucose 257 mg/dL (83-110); Magnesium 1.7 mg/dL (1.6-2.6); Potassium 4.1 mmol/L (3.5-5.1); Protein, Total 6.1 g/dL (5.8-8.1); Sodium 137 mmol/L (136-145)
[2020-10-25 04:32] LABS: Troponin I 0.769 ng/mL (< 0.028)
[2020-10-25] MEDS: Levothyroxine Sodium 50 MCG TAB PO SCH (06:17)
[2020-10-25 06:32] LABS: Troponin I 1.243 ng/mL (< 0.028)
--- NOTE | 2020-10-25 07:31 | CT ---
PRELIMINARY REPORT/[facility]/EMERGENCY AFTER HOURS PROCEDURE EXAM: CT Head Without Intravenous Contrast. CLINICAL HISTORY: Complaint of defibrillator discharge earlier this evening. Patient stated that prior to today he was feeling fine. He had a fall this morning in his bathroom but had no acute injuries. Tonight he was laying in bed around 2100 when he felt his defibrillator discharge. TECHNIQUE: Axial computed tomography images of the head/brain without intravenous contrast. COMPARISON: None provided. FINDINGS: BRAIN: No acute intraparenchymal hemorrhage. No mass lesion. No CT evidence for acute territorial infarct. N o midline shift or extra-axial collection. VENTRICLES: No hydrocephalus. ORBITS: The orbits are unremarkable. SINUSES AND MASTOIDS: Partial opacification of the maxillary sinuses, correlate for sinus inflammatory disease. Mastoid ai r cells are well aerated. SOFT TISSUES: No significant facial or scalp soft tissue swelling evident. No radiopaque foreign body is seen. BONES: No acute skull fracture. IMPRESSION: No acute intracranial abnormality. ELECTRONICALLY SIGNED BY: Anupam Carpio MD Oct 25, 2020 1:41:00 AM SENIOR CHEMICAL PROCESS ENGINEER This report is intended for review by the ordering physician only, in accordance of law. If you recei ve this report in error, please call [facility] at [phone]. FINAL REPORT Final interpretation Head CT without contrast: 10/25/2020 COMPARISON: 07/02/2018 HISTORY: Fall, trauma, pain FINDINGS: Axial CT imaging at 2.5 mm intervals provided with coronal and sagittal reformatted imaging . The maxillary sinus on the right is opacified. There is mucosal thickening involving the left ethmoid air cells and maxillary sinus. Diffuse cerebral volume loss is present. No intracranial hemor rhage, midline shift, or mass effect. There is no displaced calvarial fracture. IMPRESSION: Chronic findings as described above. No intracranial hemorrhage or acute fracture. This i s in agreement with the preliminary report Code QA Transcribed Date/Time: 10/25/2020 7:59 AM
--- NOTE | 2020-10-25 08:10 | CT ---
PRELIMINARY REPORT/[facility]/EMERGENCY AFTER HOURS PROCEDURE Receipt of this report by the clinical staff was confirmed with Genevieve Castro MD by Manish Lopez on Oct 25, 2020 02:00:00 WEBMETHODS CONSULTANT. Addendum electronically signed by Nury Lopez on October 25, 2020 2:01:04 AM WEBMETHODS CONSULTANT EXAM: CT Lumbar Spine Without Intravenous Contrast. CLINICAL HISTORY: Complaint of defibrillator discharge earlier this evening. Patient stated that prior to today he was feeling fine. He had a fall this morning in his bathroom but had no acute injuries. Tonight he was laying in bed around 2100 when he felt his defibrillator discharge. TECHNIQUE: Axial computed tomography images of the lumbar spine without intravenous contrast. Sagittal and coron al reformations performed. COMPARISON: None provided. FINDINGS: BONES: Acute burst type fracture seen of the superior endplate of L1 extending into the posterior elements o f L1. Cannot rule out possible cord injury. MRI should be considered for further evaluation. DISCS/DEGENERATIVE CHANGES: Findings worrisome for ankylosis spondylitis. Multilevel broad-based disc herniation seen most promi nent at L3/L4 and L4/L5 with mild to moderate central canal stenosis. SOFT TISSUES: The paraspinal soft tissues are unremarkable. IMPRESSION: Acute burst type fracture seen of the superior endplate of L1 extending into the posterior elements o f L1. Cannot rule out possible cord injury. Given patient's defibrillator, MRI is not a consideration. Surgical consult is recommended. ELECTRONICALLY SIGNED BY: Anupam Carpio MD Oct 25, 2020 1:56:55 AM WEBMETHODS CONSULTANT This report is intended for review by the ordering physician only, in accordance of law. If you recei ve this report in error, please call [facility] at [phone]. FINAL REPORT Final interpretation CT of the lumbar spine without contrast: 10/25/2020 COMPARISON: None. HISTORY: Fall, trauma, pain. FINDINGS: Evaluation for central canal and/or neural foraminal stenosis is limited on routine CT exam. There is fusion of bilateral sacroiliac joints and there is calcification in the region of the anteri or longitudinal ligament and in the region of the interspinous ligaments suggesting ankylosing spondylitis. There is no anterolisthesis or retrolisthesis evident within the lumbar spine. There is atherosclerotic calcification of the abdominal aorta and its branches, not well assessed on this examination. There is a horizontally oriented fracture involving the superior aspect of the L1 vertebral body. Thi s fracture involves the anterior posterior cortex and extends into the left pedicle and through the posterior aspect of the left superior articular facet. This fracture extends through the region of a calcified interspinous ligament. It also involves the superior articular facet on the right. This is consistent with a Chance fracture. No anterolisthesis or retrolisthesis is noted. There is no loss of vertebral body height. There is a subtle fracture involving the anterior inferior corner of the T12 vertebral body without d isplacement. The L2, L3, L4, and L5 vertebral bodies demonstrate no definite evidence for fracture. L1-2: Bilateral facet hypertrophy with bilateral neural foraminal stenosis, right greater than left. Bilateral lateral osteophyte formation. L2-3: Bilateral facet hypertrophy. Anterior osteophyte formation. At least mild central canal stenosi s and bilateral neural foraminal stenosis. L3-4: Bilateral facet hypertrophy. Moderate/severe central canal stenosis and moderate bilateral neur al foraminal stenosis, right greater than left. L4-5: Bilateral facet hypertrophy with mild bilateral neural foraminal stenosis and at least mild efra tral canal stenosis. L5-S1: Bilateral facet hypertrophy. Anterior osteophyte formation. Bilateral neural foraminal stenosi s suspected, mild on the left and moderate on the right. No osseous cause of significant central canal stenosis. At the T12-L1 level there is no osseous cause of significant central canal or neural foraminal stenos is. The fracture at L1 extends into the transverse process on the right. IMPRESSION: Unstable Chance fracture of the L1 level. Subtle nondisplaced fracture involving the anterior inferior corner of T12. With respect to the preliminary report, I agree that there is an L1 fracture with extension into the posterior elements. As in the preliminary report, surgical consultation is recommended. Not mentioned in the preliminary report is the fracture involving the anterior inferior corner of the T12 vertebral body. CODE T. Transcribed Date/Time: 10/25/2020 8:24 AM
--- NOTE | 2020-10-25 10:49 | PDOC.HOSPP ---
- Subjective Encounter Date: 10/25/20 Encounter Time: 13:24 Subjective: Mr. Waterman was seen this am in follow-up of ventricular tachycardia. He says he is still a little short of breath. He complains of lower back pain that is dull. He rates it at a 4/10. The pain improves when he lays in one place. We called Dr. Saravia this morning and he he is aware of the patient's being admitted here. He patient has elevated troponin level. He denies any chest pain currently. Daughter at bedside. Patient lives with his . - Objective Vital Signs & Weight: Vital Signs (12 hours) Temp Pulse Resp BP Pulse Ox 10/25/20 04:15 97.9 F 10/25/20 02:15 72 18 128/52 L 97 10/25/20 02:00 80 18 147/65 H 97 10/25/20 01:45 70 18 138/56 L 95 10/25/20 01:30 76 20 136/61 93 L Weight Weight 132 lb 4.438 oz Most Recent Monitor Data Heart Rate from ECG 67 NIBP 134/62 NIBP BP-Mean 86 Respiration from ECG 14 SpO2 96 Result Diagrams: 10/25/20 03:24 10/25/20 03:24 Hospitalist ROS - Review of Systems Constitutional: denies: fever Respiratory: reports: shortness of breath. denies: cough Cardiovascular: reports: palpitations, edema. denies: chest pain Gastrointestinal: denies: nausea, vomiting, abdominal pain, diarrhea, constipation - Medication Medications: Active Medications Generic Name Dose Route Start Last Admin Trade Name Freq PRN Reason Stop Dose Admin Amiodarone HCl 450 mg/ 259 mls @ 0 mls/hr 10/25/20 01:15 10/25/20 06:56 Dextrose/Water IVPB 259 mls INF RAJWINDER Administration Protocol Per Protocol Levothyroxine Sodium 50 mcg 10/25/20 06:00 10/25/20 06:17 Levothyroxine Sodium 50 Mcg Tab PO Not Given 0600 [facility] - Exam Eye: PERRL, anicteric sclera Heart: RRR, no murmur, no gallops, no rubs, normal peripheral pulses Respiratory: CTAB, no wheezes, no ronchi, normal chest expansion, no tachypnea, normal percussion Gastrointestinal: soft, non-tender, non-distended, normal bowel sounds, no palpable masses, no hepatomegaly, no splenomegaly, no bruit, no guarding, no rigidity Extremities: 1+ LE edema Psychiatric: A&O x 3 Hosp A/P - Plan (1) Ventricular tachycardia Remote history of ICD placement in July 2018 Unsuccessful ablation in August 2020 - started on amiodarone drip - troponin elevated, - cardiology -Dr. Saravia aware of this patient - cardiac monitoring (2) Colon tumor - Resected, not currently on chemo. 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 -continue Carvedilol, Furosemide, (5) DM type 2 (diabetes mellitus, type 2) -Glucose decreased to around 170 -continue long acting insulin, his home regimen (6) Dyslipidemia -Continue Atorvastatin (7) HTN (hypertension) -Continue Carvedilol, Furosemide (8) Hypothyroidism - TSH in the normal range - continue levothyroxine (9) Microcytic Anemia - low H&H, high RDW, low MCHC - likely due to GI malignancy, with a history of colon cancer -Outpatient follow-up iron studies -Hemoglobin around 9 he does not require any transfusion will but will follow up 25th plan to transfer this patient to [facility] for ablation of the V. tach. Dr. Johnson, sports book server at [facility] accepted this patient. Dr. Carter on board and Dr. Saravia aware of the plan. Lately transfer center called me saying that [facility] not able to take this patient today. TSH and mag in the normal range Thrombocytopenia with a platelet of 126,000 -We will follow closely followed wTanisha. student, and edited today's plan.
[2020-10-25] MEDS ORDERED: Acetaminophen 325 MG TAB ONE ×3 (11:30→22:51)
[2020-10-25] MEDS: Acetaminophen 325 MG TAB PO PRN ×2 (11:42→22:56)
[2020-10-25] MEDS: Aspirin Chewable 81 MG TAB PO SCH (12:51)
[2020-10-25] MEDS: Apixaban 2.5 MG TAB PO SCH ×2 (12:53→22:06)
[2020-10-25] MEDS: Atorvastatin Calcium 40 MG TAB PO SCH (12:53)
[2020-10-25] MEDS: Carvedilol 6.25 MG TAB PO SCH ×3 (12:54→22:06)
[2020-10-25] MEDS: Icosapent Ethyl 1 GM CAPSULE PO SCH ×4 (12:56→22:08)
[2020-10-25] MEDS ORDERED: Furosemide 40 MG TAB ONE (12:57)
[2020-10-25] MEDS: Furosemide 40 MG TAB PO SCH (13:04)
--- NOTE | 2020-10-25 14:04 | CON ---
DATE OF CONSULTATION: 10/25/2020 CHIEF COMPLAINT: Fall. HISTORY OF PRESENT ILLNESS: Mr. Waterman is an 80-year-old gentleman, history of 2 MIs, quintuple bypass, congestive heart failure. He presents to the ED due to his defibrillator malfunctioning. He reports that his defibrillator discharged approximately 30 times causing him to fall this morning in the bathroom. A lumbar CT was performed indicating a Chance fracture at L1. At bedside, he has no neuro deficit. He is moving all extremities. REVIEW OF SYSTEMS: CONSTITUTIONAL: Denies fever or chills. HEENT: Denies change in vision or hearing. CARDIAC: Denies chest pain, shortness of breath, or diaphoresis. PULMONARY: Denies shortness of breath, cough, or hemoptysis. GI: Denies fecal incontinence, abdominal pain, nausea, vomiting, diarrhea, change in stool formation and consistency. : Denies urinary incontinence, trouble with urination, frequency of urination, bloody urine. SKIN: Denies skin rash, bruising, bleeding, skin masses. MUSCULOSKELETAL: As per history of present illness. NEUROLOGICAL: As per history of present illness. PSYCHOLOGICAL: As per history of present illness. PAST MEDICAL HISTORY: 1. Collapsed lung. 2. Artery burst. 3. DVT. 4. Skin cancer, recurred. 5. Osteoarthritis. 6. Diabetes type 2, insulin dependent. 7. Hyperlipidemia. PAST SURGICAL HISTORY: 1. CABG x5. 2. Nasal surgery. 3. Skin cancer surgery. 4. Heart ablation. 5. Lesions removed from colon. SOCIAL HISTORY: The patient denies alcohol use or illicit drug use. Former smoker, quit 10 years ago. MEDICATIONS: 1. Carvedilol 25 mg. 2. Atorvastatin 40 mg. 3. . 4. Levemir 100 units/mL, 13 units subcu. 5. Humalog 200 units/mL 3 times a day. 6. Levothyroxine . 7. Eliquis 2.5 mg once a day. 8. Aspirin 81 mg. 9. Omeprazole 20 mg. 10. Vascepa 1 g. ALLERGIES: NO KNOWN DRUG ALLERGIES. VITALS: Blood pressure 120/72, pulse 84, respirations 18, temperature 98.0. PHYSICAL EXAMINATION: HEENT: Pupils are equal. Extraocular movements are intact. NECK: Normal, soft, supple. No masses are noted. Range of motion is intact and nonpainful. NEUROLOGICAL: Awake, alert, and oriented x3. Memory, attention, fund of knowledge, and language are normal. Cranial nerves grossly intact. Upper extremity; he has good strength in his deltoids, biceps, triceps, wrist extensor extension, finger extension, finger intrinsic. Sensation equal bilaterally. Lower extremity has good strength in his iliopsoas, quadriceps, hamstrings, anterior tib, EHL, and gastrocnemius. There is no area of dermatomal sensory loss. Reflexes are symmetric. The toes are downgoing. GCS is 15. ASSESSMENT: 1. Fall. 2. Defibrillator malfunction. 3. Ventricular tachycardia. 4. L1 Chance fracture. 5. Ankylosing spondylitis. PLAN: [facility] called for fitting of a TLSO clamshell brace. Brace to be worn when he is greater than 45 degrees. No neurosurgery at this time. We will have him follow up in 2 to 3 weeks in our clinic and repeat scan prior to the visit. Job ID: [id number]
--- NOTE | 2020-10-25 14:28 | PDOC.BPN ---
- Brief Progress Note Encounter Date: 10/25/20 Encounter Time: 14:26 No beds available at [facility] in [place] for transfer. Will remain on list to see if a bed becomes available. In the meantime, continue amiodarone loading. Ablation may need to be arranged as OP if transfer is not accepted.
--- NOTE | 2020-10-25 15:03 | CON ---
DATE OF CONSULTATION: HISTORY OF PRESENT ILLNESS: The patient is an 80-year-old gentleman with a history of coronary artery disease and ventricular tachycardia, who presents after his AICD fired on multiple occasions and he had a fall. The patient has a long history of coronary artery disease and previously underwent CABG.. He was seen in 2018 with a myocardial infarction and underwent a cardiac catheterization, found to have a severe decrease in left ventricular systolic function, estimated ejection fraction of 25% to 30%. The LOPEZ was a patent vessel, the saphenous vein graft to the right coronary was a patent vessel and the graft to the diagonal branch was patent. The patient's right coronary artery graft was occluded. The patient has been on medical therapy. He has a history of congestive heart failure and ventricular tachycardia. The patient previously has undergone an ablation for ventricular tachycardia. Most recently, the patient was diagnosed with colon carcinoma and underwent resection. The patient was recovering and doing well. Yesterday he has felt his AICD fired on multiple occasions, he also had an episode where he fell. The patient denied having any chest discomfort. PAST MEDICAL HISTORY: 1. Coronary artery disease. 2. Ischemic cardiomyopathy. 3. Diabetes mellitus. 4. Hypertension. 5. Renal insufficiency. 6. History of permanent atrial fibrillation. 7. History of ventricular tachycardia. PAST SURGICAL HISTORY: Coronary artery bypass surgery. SOCIAL HISTORY: Nonsmoker. ALLERGIES: NO KNOWN DRUG ALLERGIES. MEDICATIONS: Include: 1. Synthroid 50 mcg daily. 2. Vascepa two tablets b.i.d. 3. Lasix 40 daily. 4. Coreg 12.5 b.i.d. 5. Lipitor 80 nightly. 6. Aspirin 81 daily. 7. Eliquis 2.5 b.i.d. 8. Protonix 40 daily. 9. Prilosec 20 daily. 10. Iron sulfate. 11. Insulin. REVIEW OF SYSTEMS: Ten-point system is otherwise unremarkable. No history of easy bruising or bleeding. PHYSICAL EXAMINATION: GENERAL: An obese gentleman, in no acute distress. VITAL SIGNS: Blood pressure 134/65. NECK: No jugular vein distention. LUNGS: Clear to auscultation. HEART: Irregular rate and rhythm with normal S1 and S2 and a 1/6 systolic murmur. ABDOMEN: Distended. EXTREMITIES: Mild bilateral edema. LABORATORY RESULTS: Sodium 137, potassium 4.1, chloride 101, bicarbonate 24, BUN 29, and creatinine 1.38. Troponin was 0.769. White blood cell count was 5.5, hemoglobin 9.4, hematocrit 31.9, and platelets are 126. IMPRESSION: 1. Recurrent ventricular tachycardia. 2. History of ischemic cardiomyopathy. 3. History of coronary artery bypass surgery. 4. Hypertension. 5. Permanent atrial fibrillation. 6. Diabetes mellitus. 7. Dyslipidemia. PLAN: This gentleman presents with a recurrent ventricular tachycardia. It is recommended by EP that to be transferred to [place]. The patient also has had a lumbar fracture. From a cardiac standpoint, we will follow this patient with you through his hospitalization. Job ID: [id number] MTDD
[2020-10-25] MEDS ORDERED: Insulin Glargine 10 UNITS in Pre-Filled Syringe 1 EACH SC SCH (21:00)
--- NOTE | 2020-10-26 07:14 | CON ---
DATE OF CONSULTATION: 10/25/2020 Dictated by Gisele Garcia, nurse practitioner, as a scribe for Dr. Lex Carter. REASON FOR CONSULTATION: Ventricular tachycardia storm and repeat ICD shocks. CONSULTING PHYSICIAN: Lex Carter MD. HOSPITALIST: Nathaniel Augustin MD HISTORY OF PRESENT ILLNESS: I am seeing Mr. Waterman at our [facility] in the emergency room as an electrophysiology unix consultant. He presented in VT storm, resulting in 32 ICD shocks. He was placed on amiodarone. His problems are as follows: 1. Recurrent ventricular tachycardia. a. History of slow VT at 170 beats per minute. b. EP study with VT ablation in 2018 with repeat ablation most recently on 07/20/2020, VT was not inducible and ablation was based on pace mapping at the anterior septum and inferior wall. c. VT storm on 10/24/2020, resulting in 32 ICD shocks, responded to initial lidocaine drip, then switched for amiodarone. 2. Chronic systolic congestive heart failure, LVEF 25%. 3. Ischemic cardiomyopathy. 4. Coronary artery disease status post CABG. 5. Single-chamber ICD, Medtronic Visia AF. 6. Sleep apnea. 7. Diabetes. 8. Chronic atrial fibrillation, on Eliquis. 9. Adenocarcinoma status post surgical resection of the tumor with resolution, did not require chemo or radiation therapy. Performed in 08/2020. ALLERGIES: NO KNOWN DRUG ALLERGIES. HOME MEDICATION LIST: 1. Levothyroxine 50 mcg daily. 2. Vascepa 1 g q.i.d. 3. Furosemide 40 mg daily. 4. Coreg 12.5 mg p.o. t.i.d. 5. Atorvastatin 80 mg daily. 6. Aspirin 81 mg daily. 7. Eliquis 2.5 mg b.i.d. 8. Omeprazole 20 mg daily. 9. Multivitamin daily. 10. Lantus nightly as directed. 11. Ferrous sulfate 325 mg daily. SUBJECTIVE: Mr. Waterman is here for VT storm and repeated ICD defibrillations. He has had no recent infectious disease or illness and has tested negative for COVID since arriving to the hospital. He did fall and hit his back in the bathtub yesterday morning. He remembers the entire event and did not pass out. He is not sure what caused him to fall. He was resting in bed the rest of the day. At 2100 hours, he received his 1st ICD shock. They continued to occur and he was counting them. EMS arrived and placed him on lidocaine. They brought him to the emergency room and IV lidocaine was stopped in favor of IV amiodarone. Device was interrogated, confirming VT storm and 32 appropriate ICD shocks. There were also multiple episodes of pace terminated ventricular tachycardia. He remains on an IV amiodarone drip at 0.5 mg/minute, which was started prior to midnight on the . At this point, Mr. Waterman is shaken, but feeling fair. He has significant back pain right now from his fall yesterday morning. He is quite fearful of VF shocks starting again. Otherwise, no symptoms. REVIEW OF SYSTEMS: A 12-point review of systems is otherwise unremarkable. PAST MEDICAL HISTORY: As above. SOCIAL HISTORY: Denies smoking, alcohol, or drug use. Quit smoking 10 years ago after a [id number] history. FAMILY HISTORY: Noncontributory. OBJECTIVE: VITAL SIGNS: Temperature 97.9, blood pressure 134/65, respirations 14, and oxygen 96% on room air. GENERAL: The patient is alert and oriented. Speech is clear. Affect is appropriate. He is in no apparent distress. Resting comfortably in bed. NECK: Supple without jugular venous distention. CHEST: Coarse without crackles. CARDIAC: Irregularly irregular. S2 is variable. Left precordial ICD is healed without reaction. There is a midsternal scar and mid abdominal scar from his recent resection. ABDOMEN: Benign and obese. Positive bowel sounds throughout. EXTREMITIES: Warm and dry to touch without edema, clubbing, or cyanosis. Pulses are adequate. NEUROLOGIC: Nonfocal. MUSCULOSKELETAL: Without swelling or deformities. SKIN: No rash. DATABASE: EKG shows atrial fibrillation with occasional PVCs that are monomorphic right bundle, inferior axis morphology. [place] QRS is narrow. ICD interrogation revealed frequent episodes of monomorphic ventricular tachycardia, often responsive to antitachycardia pacing and resulted in 32 ICD shocks. LABORATORY DATA: OCGK-PRIIA-3 PCR test performed on 10/24/2020, COVID not detected, negative test. Influenza A and influenza B negative as well. Hematology: Hemoglobin 9.4, hematocrit 31.9, and platelet count 126. Chemistry: Potassium 4.1 and creatinine 1.38. Liver enzymes within normal ranges. TSH 2.7. BNP 418 and troponins climbing at 1.2, felt to be related to ICD shocks. ASSESSMENT AND PLAN: Mr. Waterman is a pleasant 80-year-old man with a history of congestive heart failure, likely ischemic cardiomyopathy with remote bypass. He underwent left heart catheterization in 2018, that showed 3 out of 4 grafts were patent and no intervention was required at the time. Last year, he was seen to have recurrent monomorphic ventricular tachycardia and underwent electrophysiology study and ablation. Unfortunately, he was not inducible as mentioned above. He has had recurrent ventricular tachycardia episodes since then, that had previously been responsive to antitachycardia pacing. He was largely asymptomatic. We optimized beta-mamadou therapy, but now find that he went into ventricular tachycardia storm, resulting in multiple implantable cardiac defibrillator shocks and has now required an amiodarone drip. I have discussed this with Cardiology. There is minimal suspicion for an ischemic etiology to this and no ischemic workup is anticipated. I discussed options with Mr. Waterman and his daughter who was bedside at the time. We could continue amiodarone, loading him as an inpatient, continuing outpatient taper for suppression of the atrial fibrillation. The other option would be for transfer to [place] and repeat ablation. I suspect in the long run he would require this anyway and to avoid potential toxic effects of amiodarone, they favor transfer and ablation as well. We will attempt to transfer to [facility] in [place] and make arrangements for VT ablation with Dr. Keen, who has done his prior ablations. Currently, he is in atrial fibrillation, which is chronic, and his ventricular rates are controlled. Continue oral anticoagulation with Eliquis at this time. I discussed this with the hospitalist as well, and the transfer is already initiated. Hospitalist in [place] will be accepting. My colleague, Dr. Keen, is aware of this transfer and pending procedure as well. For now, we will continue the amiodarone drip. Thank you for allowing me to participate in the care of this patient. Job ID: [id number]
[2020-10-26] MEDS ORDERED: Acetaminophen 325 MG TAB ONE (07:56)
[2020-10-26] MEDS: Acetaminophen 325 MG TAB PO PRN (08:01)
[2020-10-26] MEDS ORDERED: Furosemide 40 MG TAB ONE (09:23)
[2020-10-26] MEDS ORDERED: Aspirin Chewable 81 MG TAB ONE (09:23)
[2020-10-26] MEDS ORDERED: Amiodarone 200 MG TAB PO SCH ×2 (09:30→15:00)
[2020-10-26] MEDS ORDERED: HumaLOG 300 UNITS/3 ML VIAL ONE (09:56)
[2020-10-26] MEDS: Aspirin Chewable 81 MG TAB PO SCH (10:06)
[2020-10-26] MEDS: Furosemide 40 MG TAB PO SCH (10:06)
[2020-10-26] MEDS: Levothyroxine Sodium 50 MCG TAB PO SCH (10:06)
[2020-10-26] MEDS: Apixaban 2.5 MG TAB PO SCH (10:07)
[2020-10-26] MEDS: Atorvastatin Calcium 40 MG TAB PO SCH (10:08)
[2020-10-26] MEDS: Carvedilol 6.25 MG TAB PO SCH (10:09)
[2020-10-26 10:11] VITALS: BP 144/86
[2020-10-26] MEDS: Icosapent Ethyl 1 GM CAPSULE PO SCH (10:11)
--- NOTE | 2020-10-26 14:20 | PDOC.DS.DS ---
Provider Date of Admission: 10/25/20 01:17 Admitting Provider: José Miguel Ayala Primary Care Physician: Karol Gagnon, MSN, RELOCATION COMMISSIONER- Course Hospital Course: 80-year-old male presented (1) Ventricular tachycardia Remote history of ICD placement in July 2018 Unsuccessful ablation in August 2020 - started on amiodarone drip - troponin elevated, - cardiology -Dr. Saravia, his vp integration followed with us (2) Colon tumor - Resected, not currently on chemo. 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 -continue Carvedilol, Furosemide, (5) DM type 2 (diabetes mellitus, type 2) -Glucose decreased to around 170 -continue long acting insulin, his home regimen (6) Dyslipidemia -Continue Atorvastatin (7) HTN (hypertension) -Continue Carvedilol, Furosemide (8) Hypothyroidism - TSH in the normal range - continue levothyroxine (9) Microcytic Anemia - low H&H, high RDW, low MCHC - likely due to GI malignancy, with a history of colon cancer -Outpatient follow-up iron studies -Hemoglobin around 9 he does not require any transfusion will but will follow up TSH and mag in the normal range Thrombocytopenia with a platelet of 126,000 25th plan to transfer this patient to [facility] for ablation of the V. tach. Dr. Johnson, paper products machine operator at [facility] accepted this patient. Dr. Carter on board and Dr. Saravia aware of the plan. Patient is transferred to that facility on 26th the morning. Resuscitation Status: 10/25/20 01:12 Resuscitation Status Routine Resuscitation Status: FULL: Full Resuscitation Lab Results: 10/25/20 03:24 10/25/20 03:24 Abnormal Lab Results - Last 48 hrs 10/24/20 23:27: BUN 33 H, Creatinine 1.55 H, AST 36 H, Albumin/Globulin Ratio 1.1 L 10/24/20 23:27: PT 16.9 H 10/24/20 23:27: CK-MB (CK-2) 7.8 H*, Troponin I 0.283 H 10/24/20 23:27: Hgb 10.3 L, Hct 35.0 L, MCV 74.3 L, MCH 21.9 L, MCHC 29.4 L, RDW 23.1 H, MPV 5.7 L, Neutrophils % 79.1 H, Lymphocytes % 11.8 L, Lymphocytes # 0.8 L 10/24/20 23:27: B-Natriuretic Peptide 418.1 H 10/25/20 03:24: BUN 29 H, Creatinine 1.38 H, Albumin 3.2 L, Albumin/Globulin Ratio 1.1 L 10/25/20 03:24: RBC 4.30 L, Hgb 9.4 L, Hct 31.9 L, MCV 74.1 L, MCH 22.0 L, MCHC 29.6 L, RDW 22.9 H, Plt Count 126 L, MPV 6.0 L 10/25/20 03:24: Troponin I 0.769 H* 10/25/20 05:34: Troponin I 1.243 H* Vitals: Vital Signs (12 hours) BP 10/26/20 10:09 144/86 H Weight Weight 132 lb 4.438 oz Most Recent Monitor Data Heart Rate from ECG 84 NIBP 146/83 NIBP BP-Mean 104 Respiration from ECG 20 SpO2 97 Physical Exam: The patient was seen and examined on the day of discharge. Plan Home Medications: Medication Instructions Recorded Confirmed Type Atorvastatin Calcium 80 mg PO DAILY 07/02/18 09/21/20 History Furosemide 40 mg PO DAILY 07/02/18 09/21/20 History Insulin Glargine [Lantus Vial] 13 unit SQ HS 07/02/18 09/21/20 History Aspirin Chewable [Aspirin Chewable 81 mg PO DAILY 01/21/20 09/21/20 History Tablet] Icosapent Ethyl [Vascepa] 1 gm PO QID 01/21/20 09/21/20 History Levothyroxine Sodium 50 mcg PO DAILY 01/21/20 09/21/20 History Omeprazole 20 mg PO DAILY 09/21/20 09/21/20 History Apixaban [Eliquis] 2.5 mg PO BID #60 tab 09/27/20 Rx Carvedilol [Coreg] 12.5 mg PO TID #90 tab 09/27/20 Rx Ferrous Sulfate 325 mg PO DAILY #30 tab 09/27/20 Rx Multivitamin [Multi-Vitamin Daily] 1 tablet PO DAILY #30 tablet 09/27/20 Rx Allergies: No Known Allergies Allergy (Verified 07/02/18 10:12) Referrals: Karol Gagnon, MSN RELOCATION COMMISSIONER [facility] [Primary Care Provider] - Disposition: HOME Quality CORE MEASURES:: N/A
--- NOTE | 2020-10-26 14:45 | PDOC.EP ---
- Subjective Date: 10/26/20 Time: 08:00 Interval History: Feels fair. + back pain. Fearful of repeat ICD shocks. - Review of Systems Respiratory: denies: cough, dry, hemoptysis, pleuritic pain, shortness of breath, SOB with excertion, sputum, wheezing, other Cardiology: denies: chest pain, edema, heart racing, light headedness, paroxysmal noc. dyspnea, orthopnea, palpitations, passing out, pleuritic pain, pressure, swelling, other Gastrointestinal: denies: abdominal pain, constipation, diarrhea, hematochezia, melena, nausea, vomitting, other Musculoskeletal: reports: unstable gait, other (back pain) - Objective Allergies/Adverse Reactions: Allergies Allergy/AdvReac Type Severity Reaction Status Date / Time No Known Allergies Allergy Verified 07/02/18 10:12 Current Medications Acetaminophen (Acetaminophen 325 Mg Tab) 650 mg PO Q4H PRN PRN Reason: Headache/Fever/Mild Pain (1-3) Last Admin: 10/26/20 08:01 Dose: 650 mg Documented by: Acetaminophen (Acetaminophen 650 Mg Suppository) 650 mg LA Q4H PRN PRN Reason: Headache/Fever/Mild Pain (1-3) Last Admin: 10/25/20 17:53 Dose: 650 mg Documented by: Amiodarone HCl (Amiodarone 200 Mg Tab) 400 mg PO TID [facility] Apixaban (Apixaban 2.5 Mg Tab) 2.5 mg PO BID [facility] Last Admin: 10/26/20 10:07 Dose: 2.5 mg Documented by: Aspirin (Aspirin Chewable 81 Mg Tab) 81 mg PO DAILY [facility] Last Admin: 10/26/20 10:06 Dose: 81 mg Documented by: Atorvastatin Calcium (Atorvastatin Calcium 40 Mg Tab) 80 mg PO DAILY [facility] Last Admin: 10/26/20 10:08 Dose: 80 mg Documented by: Calcium Carbonate (Calcium Carbonate 500 Mg Chewtab) 1,000 mg PO Q4H PRN PRN Reason: Heartburn or Indigestion Carvedilol (Carvedilol 6.25 Mg Tab) 12.5 mg PO TID [facility] Last Admin: 10/26/20 10:09 Dose: 12.5 mg Documented by: Dextrose/Water (Dextrose 50% Abboject 50 Ml Syringe) 25 gm SLOW IVP PRN PRN PRN Reason: Hypoglycemia Furosemide (Furosemide 40 Mg Tab) 40 mg PO DAILY [facility] Last Admin: 10/26/20 10:06 Dose: 40 mg Documented by: Glucagon (Glucagon 1 Mg/Ml Vial) 1 mg IM PRN PRN PRN Reason: Hypoglycemia Insulin Glargine 10 units/ (Miscellaneous Medication) 0.1 mls @ 0 mls/hr SC HS [facility] Last Admin: 10/25/20 22:08 Dose: 0.1 mls Documented by: Dextrose/Water (D5w) 1,000 mls @ 0 mls/hr IV .Q0M PRN PRN Reason: Hypoglycemia Insulin Human Lispro (Humalog 300 Units/3 Ml Vial) 0 units SC .MODERATE SLIDING SC PRN PRN Reason: Moderate Correctional Scale Levothyroxine Sodium (Levothyroxine Sodium 50 Mcg Tab) 50 mcg PO 0600 [facility] Last Admin: 10/26/20 10:06 Dose: 50 mcg Documented by: Miscellaneous Medication (Icosapent Ethyl 1 Gm Capsule) 1 gm PO QID [facility] Last Admin: 10/26/20 10:11 Dose: 1 gm Documented by: Ondansetron HCl (Ondansetron Odt 4 Mg Tab) 4 mg PO Q6H PRN PRN Reason: Nausea/Vomiting Ondansetron HCl (Ondansetron Pf 4 Mg/2 Ml Vial) 4 mg IVP Q6H PRN PRN Reason: Nausea/Vomiting Vital Signs & Weight: Vital Signs BP 10/26/20 10:09 144/86 H Weight 132 lb 4.438 oz I/O: I/O 10/25/20 10/26/20 10/27/20 06:59 06:59 06:59 Intake Total 360 Balance 360 - Quality Measures Condition: Atrial Fibrillation/Flutter (hx or current) CV meds: Eliquis: Yes - Physical Exam General: alert & oriented x3, appears well, no apparent distress, speech clear, affect appropriate HEENT: mucus membranes moist, normocephaly Neck: supple neck, midline trachea, no JVD/HJR, no masses, no bruit, no lymphadenopathy, no thromegaly Cardiology: no murmur, regular rate, PMI nondisplaced. negative: regular rhythm Lungs: clear to auscultation, normal breath sounds, no wheeze, rales, rhonchi Neurology: cranial nerve 2-12 intact, grossly intact, no lateralizing findings - Labs Result Diagrams: 10/25/20 03:24 10/25/20 03:24 - EKG Interpretation EKG Method: Telemetry EKG shows: Atrial fibrillation - Device Device: single, defibrillator Device Result: [employer] - Assessment/Plan Assessment/Plan: 1. Recurrent ventricular tachycardia. a. History of slow VT at 170 beats per minute. b. EP study with VT ablation in 2018 with repeat ablation most recently on 07/20/2020, VT was not inducible and ablation was based on pace mapping at the anterior septum and inferior wall. c. VT storm on 10/24/2020, resulting in 32 ICD shocks, responded to initial lidocaine drip, then switched for amiodarone. 2. Chronic systolic congestive heart failure, LVEF 25%. 3. Ischemic cardiomyopathy. 4. Coronary artery disease status post CABG. 5. Single-chamber ICD, Medtronic Visia AF. 6. Sleep apnea. 7. Diabetes. 8. Chronic atrial fibrillation, on Eliquis. 9. Adenocarcinoma status post surgical resection of the tumor with resolution, did not require chemo or radiation therapy. Performed in 08/2020. Stopped IV amiodarone and placed on 400mg BID. 12 lead ECG pending for QTc monitoring. Hoping transfer to [facility] will be accepted. Will continue amidodarone loading in the interim. He consent to EPS with ablation for VT if transferred.
== END 2020-10-26 10:37 | disposition short-term general hospital (02) | DRG 309 ==
LOC: ERS 23:32 → ERHOLD 10-25 01:02
PROVIDERS: ADMIT Internal Medicine; ATTEND Internal Medicine
DX: I47.2 Ventricular tachycardia (principal); S32.011A Stable burst fracture of first lumbar vertebra, initial encounter for closed fracture; I50.42 Chronic combined systolic (congestive) and diastolic (congestive) heart failure; E78.5 Hyperlipidemia, unspecified; I11.0 Hypertensive heart disease with heart failure; E03.9 Hypothyroidism, unspecified; D50.9 Iron deficiency anemia, unspecified; D69.6 Thrombocytopenia, unspecified; W19.XXXA Unspecified fall, initial encounter; M45.9 Ankylosing spondylitis of unspecified sites in spine; I25.5 Ischemic cardiomyopathy; I48.21 Permanent atrial fibrillation; K21.9 Gastro-esophageal reflux disease without esophagitis; M19.90 Unspecified osteoarthritis, unspecified site; Z85.038 Personal history of other malignant neoplasm of large intestine; I25.2 Old myocardial infarction; Z79.01 Long term (current) use of anticoagulants; Z79.890 Hormone replacement therapy; Z79.899 Other long term (current) drug therapy; Z95.1 Presence of aortocoronary bypass graft; Z87.891 Personal history of nicotine dependence
CPT/HCPCS: 0240U; 36415; 36416; 70450; 71045; 72131; 80053; 82553; 83735; 83880; 84443; 84484; 85007; 85025; 85027; 85610; 93005; 96365; 96366; J0282; J1815; J7070; L0639

== ENCOUNTER 2021-01-05 13:09 | Outpatient (CLI) | payer MEDICARE, BC | END 2021-01-05 13:10 | disposition home or self-care (01) | LOC: BICRAD 13:09 | PROVIDERS: ATTEND Internal Medicine Critical Care Medicine | DX: R06.00 Dyspnea, unspecified (principal); I51.7 Cardiomegaly; M48.56XA Collapsed vertebra, not elsewhere classified, lumbar region, initial encounter for fracture | CPT/HCPCS: 71046 ==

== ENCOUNTER 2021-08-18 10:50 | Outpatient (CLI) | payer MEDICARE, BC ==
[2021-08-19 12:03] LABS: SARS-CoV-2 PCR by NAA Not Detected (NotDetected)
== END 2021-08-18 10:51 | disposition home or self-care (01) ==
LOC: LABBT 10:50
PROVIDERS: ATTEND Internal Medicine Gastroenterology
DX: Z01.812 Encounter for preprocedural laboratory examination (principal); K21.9 Gastro-esophageal reflux disease without esophagitis; D64.9 Anemia, unspecified; Z85.038 Personal history of other malignant neoplasm of large intestine
CPT/HCPCS: U0003; U0005

== ENCOUNTER 2021-08-23 06:07 | Day surgery (SDC) | payer MEDICARE, BC ==
[2021-08-22 12:36] VITALS: BMI 28.5
[2021-08-23] MEDS ORDERED: PHENYLEPHRINE-NS 100 MCG/ML 10 ML SYRINGE ONE (08:18)
[2021-08-23] MEDS ORDERED: PROPOFOL 200 MG/20 ML VIAL ONE (08:18)
== END 2021-08-23 09:51 | disposition home or self-care (01) ==
LOC: SDC 06:07
PROVIDERS: ATTEND Internal Medicine Gastroenterology
PROC: 0DJ08ZZ Inspection of Upper Intestinal Tract, Via Natural or Artificial Opening Endoscopic (ICD-10-PCS; principal; 2021-08-23)
PROC: 0DJD8ZZ Inspection of Lower Intestinal Tract, Via Natural or Artificial Opening Endoscopic (ICD-10-PCS; 2021-08-23)
DX: E11.22 Type 2 diabetes mellitus with diabetic chronic kidney disease (principal); N18.9 Chronic kidney disease, unspecified; I50.9 Heart failure, unspecified; D63.1 Anemia in chronic kidney disease; K57.30 Diverticulosis of large intestine without perforation or abscess without bleeding; K21.9 Gastro-esophageal reflux disease without esophagitis; I48.91 Unspecified atrial fibrillation; J44.9 Chronic obstructive pulmonary disease, unspecified; I25.10 Atherosclerotic heart disease of native coronary artery without angina pectoris; G47.33 Obstructive sleep apnea (adult) (pediatric); I25.2 Old myocardial infarction; Z96.651 Presence of right artificial knee joint; Z85.038 Personal history of other malignant neoplasm of large intestine; Z98.890 Other specified postprocedural states; Z86.79 Personal history of other diseases of the circulatory system; Z95.810 Presence of automatic (implantable) cardiac defibrillator; Z95.1 Presence of aortocoronary bypass graft; Z79.4 Long term (current) use of insulin; Z79.84 Long term (current) use of oral hypoglycemic drugs; Z79.82 Long term (current) use of aspirin; Z79.899 Other long term (current) drug therapy
CPT/HCPCS: J2704

== ENCOUNTER 2023-01-28 15:42 | Emergency (ER) | payer MEDICARE, BC ==
[2023-01-28 17:04] LABS: #Eosinphils 0.1 thou/uL (0.0-0.7); #Lymphocytes 0.9 thou/uL (1.20-3.40); #Monocytes 0.4 thou/uL (0.11-0.59); #Neutrophils 1.7 thou/uL (1.40-6.50); %Basophils 0.3 % (0.0-1.0); %Eosinophils 3.7 % (0.0-10.0); %Lymphocytes 29.2 % (21.0-51.0); %Monocytes 11.2 % (0.0-10.0); %Neutrophils 55.7 % (42.0-75.0); Hemoglobin 16.5 g/dL (14.0-18.0); Mean Corpuscular HGB CONC 32.4 g/dL (32.0-36.0); Mean Corpuscular Hemoglobin 32.1 pg (27.0-31.0); Mean Corpuscular Volume 99.1 fl (78.0-98.0); Platelet Count 72 10x3/uL (130-400); RBC Distribution Width 14.1 % (11.5-14.5); Red Blood Cell (RBC) Count 5.14 mill/uL (4.70-6.10); White Blood Cell (WBC) Count 3.1 10x3/uL (4.8-10.8)
[2023-01-28 17:19] LABS: ALT (SGPT) 12 U/L (8-55); AST (SGOT) 19 U/L (5-34); Albumin 3.6 g/dL (3.4-4.8); Alkaline Phosphatase 61 U/L (40-110); Anion Gap 13 mmol/L (10-20); BUN (Urea Nitrogen) 30 mg/dL (8.4-25.7); Bilirubin, Total 0.7 mg/dL (0.2-1.2); Calc. Creatinine Clearance 0 mL/min (70-130); Carbon Dioxide 26 mmol/L (23-31); Chloride 107 mmol/L (98-107); Estimated GFR 46; Globulin 2.9 g/dL (2.4-3.5); Glucose 143 mg/dL (83-110); Lipase 34 U/L (8-78); Potassium 4.4 mmol/L (3.5-5.1); Protein, Total 6.5 g/dL (5.8-8.1); Sodium 142 mmol/L (136-145)
[2023-01-28] MEDS ORDERED: Furosemide 40 MG/4 ML VIAL ONE (18:10)
== END 2023-01-28 21:50 | disposition home or self-care (01) ==
LOC: ERS 15:42
DX: I50.9 Heart failure, unspecified (principal); K82.8 Other specified diseases of gallbladder; K86.2 Cyst of pancreas; D72.819 Decreased white blood cell count, unspecified; K21.9 Gastro-esophageal reflux disease without esophagitis; E78.5 Hyperlipidemia, unspecified; E11.9 Type 2 diabetes mellitus without complications; J44.9 Chronic obstructive pulmonary disease, unspecified; Z87.891 Personal history of nicotine dependence; Z79.01 Long term (current) use of anticoagulants; Z79.82 Long term (current) use of aspirin; Z79.4 Long term (current) use of insulin
CPT/HCPCS: 36415; 71045; 76705; 80053; 83690; 83880; 84484; 85025; 93005; 93970; 96374; J1940